=== PATIENT | female | born 1965 | race Caucasian/White ===

== ENCOUNTER → 2016-02-24 | Outpatient (CLI) | payer OTHER ==
[~2016-02-24] MED LIST: ALEV220C2 PO; CIPR500T89 PO; CLOB0.0548 TOP; CLOB0.058 TOP; FLAG500T PO; FOLI1TAB86 PO; GABA300C3 PO; IBUP200T2 PO; MORP15TA2 PO; MORP15TASA PO; MS C200T PO; MSIR30TA PO; NEUR300C PO; NUCY100T15 PO; NUCY100T8 PO; NUCY75TA8 PO; PRIL20TA2 PO; PRIL40CA PO; REGL10TA6 PO; SENO8.6T9 PO; TAZO0.052 TOP; TRAM1CAP15 PO; TRAM50TA2 PO; ULTR50TA PO; VITA100T92 PO; ZANT1TAB PO; ZENP1CAP PO; ZOFR8TAB PO; [UNRECOGNIZED DRUG - CODE] PO; [UNRECOGNIZED DRUG - CODE] PO; [UNRECOGNIZED DRUG - OTHER] TOP
--- NOTE | 2016-03-02 00:22 | ECWPNPC ---
PATIENT NAME: MEL BOURGEOIS : 1965 GENDER: FEMALE VISIT DATE: 02/24/2016 DISCHARGE DATE: 02/24/16 1525 VISIT LOCKED DATE TIME: PHYSICIAN: ZACK BOLAND RESOURCE: ZACK BOLAND REASON FOR APPOINTMENT 1. FOLLOWUP HISTORY OF PRESENT ILLNESS HISTORY OF PRESENT ILLNESS: HERE FOR F/U AND MANAGEMENT OF CHRONIC ABDOMINAL PAIN WITH HX OF CHRONIC PANCREATITIS.USING NUCYNTA 100MG BID AND DILAUDID 4MG SEVERE PAIN.THIS IS NOT CAUSING MUCH NAUSEA BUT NOT HELPING WITH PAIN MUCH MORPHINE.WILL BE HAVING ERCP AT [facility] IN [place] NEXT WEEK.RECENTLY HAD ERCP W STENTING WITH SEVERE AGGREVATION IN ABDOMINAL PAIN ON .RATING PAIN 8/10 VAS. PAIN THE PATIENT DESCRIBES THE PAIN... THE PATIENT DESCRIBES THE PAIN... FALL RISK SCREENING: SCREENING :NO FALLS IN THE PAST YEAR CURRENT MEDICATIONS TAKING PSEUDOEPHEDRINE HCL 30 MG TABLET 1 - 2 TABLETS ORALLY EVERY 6 HOURS NEEDED FOR CONGESTION TAKING ZENPEP [id number] UNIT CAPSULE DELAYED RELEASE PARTICLES ORALLY THREE TIMES DAILY TAKING VOLTAREN 1 % GEL APPLY 1 G TO EACH HAND TRANSDERMAL 4 TIMES A DAY TAKING ZOFRAN 8 MG ODT 1 TABLET ORALLY EVERY 8 HOURS NEEDED FOR NAUSEA, NOTES: UNSURE OF DOSEAGE TAKING ZOFRAN ODT 4 MG TABLET DISPERSIBLE 1 TABLET ON THE TONGUE AND ALLOW TO DISSOLVE ORALLY EVERY 8 HRS TAKING CLOBETASOL PROPIONATE 0.05 % CREAM THIN FILM TO PSORIATIC PLAQUES ON ARMS, LEGS AND SCALP EXTERNALLY TWICE A DAY TAKING ZANTAC 150 MG TABLET ONE HALF ORALLY DIRECTED TAKING CYMBALTA 60 MG CAPSULE DELAYED RELEASE PARTICLES 1 CAPSULE ORALLY ONCE A DAY TAKING NUCYNTA ER 100 MG TABLET EXTENDED RELEASE 12 HOUR DIRECTED ORALLY BID MDD2 TAKING DILAUDID 4 MG TABLET 1 TABLET NEEDED ORALLY EVERY 6 HRS MDD4 NOT-TAKING CUSTOM DO NOT USE TRAMADOL 50 MG TABLET 1-2 TABLETS ORALLY EVERY 6 HOURS NEEDED, MDD=8 NOT-TAKING OMEPRAZOLE 20MG 20MG TABLET 1 TABLET ORALLY ONCE A DAY NOT-TAKING TACLONEX SCALP 0.005-0.064 % SUSPENSION 1 DROP TO SCALP EXTERNALLY ONCE A DAY NOT-TAKING PATANOL 0.1 % SOLUTION 1 DROP INTO EACH EYE OPHTHALMIC TWICE A DAY, ABOUT 8 HOURS APART NOT-TAKING NORCO 5-325 MG TABLET 1 TABLET ORALLY THREE TIMES A DAY NEEDED FOR PAIN, MDD=3 NOT-TAKING TRAMADOL HCL 50 MG TABLET TAKE ONE TO TWO TABLETS BY MOUTH EVERY 6 HOURS NEEDED MAXIMUM DAILY DOSE = 8 TABLETS NOT-TAKING CELEXA 10 MG TABLET 1 TABLET ORALLY ONCE A DAY MEDICATION LIST REVIEWED AND RECONCILED WITH THE PATIENT PAST MEDICAL HISTORY OVERACTIVE BLADDER PSORIASIS TRANSIENT HEART MURMUR IRRITABLE BOWEL SYNDROME H/O ENDOMETRIOSIS DEPRESSION FAMILIAL ESSENTIAL TREMORS DOES NOT DRINK - HOSPITAL RECORD IS WRONG! ALLERGIES PENICILLIN V POTASSIUM: EXACERBATES PSORIASIS: ALLERGY CODEINE SULFATE: VOMITING: SIDE EFFECTS CYMBALTA: DIZZINESS, LISTED TO THE LEFT: SIDE EFFECTS SOCIAL HISTORY GENERAL: TOBACCO USE ARE YOU A:CURRENT SMOKER LEARNING BARRIERS / SPECIAL NEEDS ORIENTED TO PLAN OF CARE: PATIENT, PAIN MANAGEMENT PATIENT, ORIENTED TO PLAN OF CARE: PATIENT, PAIN MANAGEMENT PATIENT. NEW PATIENT PAIN DIARY TODAY'S VISITNOTES FROM 0-10, WHAT LEVEL IS YOUR PAIN TODAY?0 PAIN CLINIC PFS, CLERGY, PUBLIC HEALTH REFERRALS PFS REFERRAL NEEDED?NO CLERGY REFERRAL NEEDED?NO PUBLIC HEALTH REFERRAL NEEDED?NO WAS THE PROVIDER NOTIFIED OF ANY PERTINENT INFO?NO PFS REFERRAL NEEDED?NO CLERGY REFERRAL NEEDED?NO PUBLIC HEALTH REFERRAL NEEDED?NO WAS THE PROVIDER NOTIFIED OF ANY PERTINENT INFO?NO REVIEW OF SYSTEMS CONSTITUTIONAL: ANY CHANGE IN YOUR MEDICAL CONDITION? NO . CHILLS NO . FEVER NO . INFECTION: DO YOU HAVE NEW INFECTIONS? NO . DO YOU HAVE HISTORY OF MRSA? NO . MUSCULOSKELETAL: ANY NEW PATTERNS OF PAIN OR NUMBNESS? NO . GASTROENTEROLOGY: ANY NEW CHANGE IN BOWEL CONTROL? NO . GENITOURINARY: ANY NEW CHANGE IN BLADDER CONTROL? NO . IS THERE A CHANCE YOU COULD BE ? NO . HEMATOLOGY/LYMPH: DO YOU TAKE ANY BLOOD THINNERS? (FOR EXAMPLE- COUMADIN, PLAVIX, AGGRENOX, PLATEL, PRADAXA, OR XARELTO) NO . WHEN WAS YOUR LAST DOSE? DATE: TIME: . NEUROLOGY: HAVE YOU FALLEN IN THE PAST 6 MONTHS? NO . ANY NEW EXTREMITY NUMBNESS OR WEAKNESS? NO . CARDIOLOGY: DO YOU HAVE A PACEMAKER OR DEFIBRILLATOR? NO . RESPIRATORY: HAVE YOU BEEN SICK IN THE PAST WEEK? NO . FEVER NO . FLU LIKE SYMPTOMS? NO . COUGH NO . INTEGUMENTARY: DO YOU HAVE ANY RASHES OR OPEN SORES? NO . ALLERGIC/IMMUNO: ARE YOU ALLERGIC TO SHELLFISH OR IV DYE? NO . ANY NEW ALLERGIES? NO . PSYCHIATRIC: DO YOU HAVE THOUGHTS OF HURTING YOURSELF OR SOMEONE ELSE? NO . ARE YOU ABUSED, NEGLECTED, OR IN AN UNSAFE ENVIRONMENT? NO . ENDOCRINOLOGY: ARE YOU DIABETIC? NO . OTHER: DO YOU NEED ANY PRESCRIPTIONS? YES . IF YES, PLEASE LIST: NAV . ANY NEW PROBLEMS WITH YOUR MEDICATIONS? NO . WHEN DID YOU LAST EAT? ____ . WHEN DID YOU LAST DRINK? ____ . WHAT DID YOU LAST DRINK? ____ . NAME OF PERSON DRIVING YOU HOME? ____ . DO YOU HAVE ANY OTHER QUESTIONS OR CONCERNS NO . REVIEWED BY: PROVIDER: ZACK ROTHMAN . VITAL SIGNS WT 116 LBS, HT 63 IN, BMI 20.55 INDEX, BP 98/65 MM HG, HR 90 /MIN, RR 16 /MIN, TEMP 96.9 F, OXYGEN SAT % 96, NA INITIALS TL 1447, REVIEWED BY: MARGAUX. EXAMINATION GENERAL EXAMINATION: LUNGS:LUNG SOUNDS ARE CLEAR. HEART:HEART RATE REGULAR. ABDOMEN:TENDER WITH PALPATION UPPER QUADS.NON TENDER LOWER ABD. QUADS.. MUSCULOSKELETAL:*. ASSESSMENTS CHRONIC PANCREATITIS, UNSPECIFIED PANCREATITIS TYPE - K86.1 (PRIMARY) CHRONIC PRESCRIPTION OPIATE USE - Z79.891 TREATMENT CHRONIC PANCREATITIS, UNSPECIFIED PANCREATITIS TYPE REFILL NUCYNTA ER TABLET EXTENDED RELEASE 12 HOUR, 200 MG, DIRECTED, ORALLY, BID MDD2, 30 DAY(S), 60, REFILLS 0 CONTINUE CYMBALTA CAPSULE DELAYED RELEASE PARTICLES, 60 MG, 1 CAPSULE, ORALLY, ONCE A DAY REFILL DILAUDID TABLET, 4 MG, 1 TABLET NEEDED, ORALLY, EVERY 6 HRS MDD4, 30 DAY(S), 120, REFILLS 0 PROCEDURE CODES FA211 ESTABILISHED PATIENT [facility] CHARGE FOLLOW UP 4 WEEKS ELECTRONICALLY SIGNED BY STEPHAN JOHNSON ON 03/01/2016 AT 03:58 PM EST DISCLAIMER : THIS IS A VISIT SUMMARY EXTRACTED FROM THE [employer] CHART. IT IS NOT A COPY OF THE [employer] PROGRESS NOTE. MTDD
== END ==
LOC: M PAIN 14:20
PROVIDERS: ATTEND Nurse Practitioner Family
DX: K86.1 Other chronic pancreatitis (principal); Z79.891 Long term (current) use of opiate analgesic; Z79.899 Other long term (current) drug therapy; Z88.0 Allergy status to penicillin; Z88.6 Allergy status to analgesic agent; Z88.8 Allergy status to other drugs, medicaments and biological substances

== ENCOUNTER → 2016-03-23 | Outpatient (CLI) | payer OTHER ==
--- NOTE | 2016-04-02 01:28 | ECWPNPC ---
PATIENT NAME: MEL BOURGEOIS : 1965 GENDER: FEMALE VISIT DATE: 03/23/2016 DISCHARGE DATE: 03/23/16 1503 VISIT LOCKED DATE TIME: PHYSICIAN: ZACK BOLAND RESOURCE: ZACK BOLAND REASON FOR APPOINTMENT 1. FOLLOWUP HISTORY OF PRESENT ILLNESS HISTORY OF PRESENT ILLNESS: HERE FOR F/U AND MANAGEMENT OF CHRONIC ABDOMINAL PAIN WITH HX OF CHRONIC PANCREATITIS.USING NUCYNTA 100MG BID AND DILAUDID 4MG FOR SEVERE PAIN.THIS IS NOT CAUSING MUCH NAUSEA BUT NOT HELPING WITH PAIN MUCH MORPHINE. HAD ERCP AGAIN 03-01-16 W STENTING WITH SEVERE AGGREVATION IN ABDOMINAL PAIN . RATING PAIN VAS 5/10.HAS HAD SEVERE INCEASE IN ABDOMINAL PAIN SINCE THIS PROCEURE.WAS NOT ABLE TO GET OUT OF BED FOR 3 DAYS ONE WEEK AGO.EVERY TIME ERCP IS DONE SHE IS HAVING SEVERE INCREASE IN PAIN TO THE POINT THAT SHE IS TELLING ME SHE WONT HAVE IT DONE AGAIN ALTHOUGH SHE IS SCHEDULED FOR ANOTHER IN [place]. PAIN THE PATIENT DESCRIBES THE PAIN... THE PATIENT DESCRIBES THE PAIN... THE PATIENT DESCRIBES THE PAIN... FALL RISK SCREENING: SCREENING :NO FALLS IN THE PAST YEAR CURRENT MEDICATIONS TAKING PSEUDOEPHEDRINE HCL 30 MG TABLET 1 - 2 TABLETS ORALLY EVERY 6 HOURS NEEDED FOR CONGESTION TAKING ZENPEP [id number] UNIT CAPSULE DELAYED RELEASE PARTICLES ORALLY THREE TIMES DAILY TAKING VOLTAREN 1 % GEL APPLY 1 G TO EACH HAND TRANSDERMAL 4 TIMES A DAY TAKING ZOFRAN 8 MG ODT 1 TABLET ORALLY EVERY 8 HOURS NEEDED FOR NAUSEA, NOTES: UNSURE OF DOSEAGE TAKING ZOFRAN ODT 4 MG TABLET DISPERSIBLE 1 TABLET ON THE TONGUE AND ALLOW TO DISSOLVE ORALLY EVERY 8 HRS TAKING CLOBETASOL PROPIONATE 0.05 % CREAM THIN FILM TO PSORIATIC PLAQUES ON ARMS, LEGS AND SCALP EXTERNALLY TWICE A DAY TAKING ZANTAC 150 MG TABLET ONE HALF ORALLY DIRECTED TAKING NUCYNTA ER 200 MG TABLET EXTENDED RELEASE 12 HOUR DIRECTED ORALLY BID MDD2 TAKING CYMBALTA 60 MG CAPSULE DELAYED RELEASE PARTICLES 1 CAPSULE ORALLY ONCE A DAY TAKING DILAUDID 4 MG TABLET 1 TABLET NEEDED ORALLY EVERY 6 HRS MDD4 NOT-TAKING CUSTOM DO NOT USE TRAMADOL 50 MG TABLET 1-2 TABLETS ORALLY EVERY 6 HOURS NEEDED, MDD=8 NOT-TAKING OMEPRAZOLE 20MG 20MG TABLET 1 TABLET ORALLY ONCE A DAY NOT-TAKING TACLONEX SCALP 0.005-0.064 % SUSPENSION 1 DROP TO SCALP EXTERNALLY ONCE A DAY NOT-TAKING PATANOL 0.1 % SOLUTION 1 DROP INTO EACH EYE OPHTHALMIC TWICE A DAY, ABOUT 8 HOURS APART NOT-TAKING NORCO 5-325 MG TABLET 1 TABLET ORALLY THREE TIMES A DAY NEEDED FOR PAIN, MDD=3 NOT-TAKING TRAMADOL HCL 50 MG TABLET TAKE ONE TO TWO TABLETS BY MOUTH EVERY 6 HOURS NEEDED MAXIMUM DAILY DOSE = 8 TABLETS NOT-TAKING CELEXA 10 MG TABLET 1 TABLET ORALLY ONCE A DAY PAST MEDICAL HISTORY OVERACTIVE BLADDER PSORIASIS TRANSIENT HEART MURMUR IRRITABLE BOWEL SYNDROME H/O ENDOMETRIOSIS DEPRESSION FAMILIAL ESSENTIAL TREMORS DOES NOT DRINK - HOSPITAL RECORD IS WRONG! ALLERGIES PENICILLIN V POTASSIUM: EXACERBATES PSORIASIS: ALLERGY CODEINE SULFATE: VOMITING: SIDE EFFECTS CYMBALTA: DIZZINESS, LISTED TO THE LEFT: SIDE EFFECTS SOCIAL HISTORY GENERAL: TOBACCO USE ARE YOU A:NONSMOKER LEARNING BARRIERS / SPECIAL NEEDS ORIENTED TO PLAN OF CARE: PATIENT, PAIN MANAGEMENT PATIENT, ORIENTED TO PLAN OF CARE: PATIENT, PAIN MANAGEMENT PATIENT. NEW PATIENT PAIN DIARY TODAY'S VISITNOTES FROM 0-10, WHAT LEVEL IS YOUR PAIN TODAY?0 PAIN CLINIC PFS, CLERGY, PUBLIC HEALTH REFERRALS PFS REFERRAL NEEDED?NO CLERGY REFERRAL NEEDED?NO PUBLIC HEALTH REFERRAL NEEDED?NO WAS THE PROVIDER NOTIFIED OF ANY PERTINENT INFO?NO PFS REFERRAL NEEDED?NO CLERGY REFERRAL NEEDED?NO PUBLIC HEALTH REFERRAL NEEDED?NO WAS THE PROVIDER NOTIFIED OF ANY PERTINENT INFO?NO REVIEW OF SYSTEMS CONSTITUTIONAL: ANY CHANGE IN YOUR MEDICAL CONDITION? NO . CHILLS NO . FEVER NO . INFECTION: DO YOU HAVE NEW INFECTIONS? NO . DO YOU HAVE HISTORY OF MRSA? NO . MUSCULOSKELETAL: ANY NEW PATTERNS OF PAIN OR NUMBNESS? NO . GASTROENTEROLOGY: ANY NEW CHANGE IN BOWEL CONTROL? NO . GENITOURINARY: ANY NEW CHANGE IN BLADDER CONTROL? NO . IS THERE A CHANCE YOU COULD BE ? NO . HEMATOLOGY/LYMPH: DO YOU TAKE ANY BLOOD THINNERS? (FOR EXAMPLE- COUMADIN, PLAVIX, AGGRENOX, PLATEL, PRADAXA, OR XARELTO) NO . WHEN WAS YOUR LAST DOSE? DATE: TIME: . NEUROLOGY: HAVE YOU FALLEN IN THE PAST 6 MONTHS? NO . ANY NEW EXTREMITY NUMBNESS OR WEAKNESS? NO . CARDIOLOGY: DO YOU HAVE A PACEMAKER OR DEFIBRILLATOR? NO . RESPIRATORY: HAVE YOU BEEN SICK IN THE PAST WEEK? NO . FEVER NO . FLU LIKE SYMPTOMS? NO . COUGH NO . INTEGUMENTARY: DO YOU HAVE ANY RASHES OR OPEN SORES? NO . ALLERGIC/IMMUNO: ARE YOU ALLERGIC TO SHELLFISH OR IV DYE? NO . ANY NEW ALLERGIES? NO . PSYCHIATRIC: DO YOU HAVE THOUGHTS OF HURTING YOURSELF OR SOMEONE ELSE? NO . ARE YOU ABUSED, NEGLECTED, OR IN AN UNSAFE ENVIRONMENT? NO . ENDOCRINOLOGY: ARE YOU DIABETIC? NO . OTHER: DO YOU NEED ANY PRESCRIPTIONS? YES DILAUDID . IF YES, PLEASE LIST: ____ . ANY NEW PROBLEMS WITH YOUR MEDICATIONS? NO . WHEN DID YOU LAST EAT? ____ . WHEN DID YOU LAST DRINK? ____ . WHAT DID YOU LAST DRINK? ____ . NAME OF PERSON DRIVING YOU HOME? ____ . DO YOU HAVE ANY OTHER QUESTIONS OR CONCERNS NO . REVIEWED BY: PROVIDER: ZACK ROTHMAN . VITAL SIGNS WT 117.4 LBS, HT 63 IN, BMI 20.79 INDEX, BP 120/70 MM HG, HR 89 /MIN, RR 16 /MIN, TEMP 96.0 F, OXYGEN SAT % 98, NA INITIALS TL 1425. EXAMINATION GENERAL EXAMINATION: LUNGS:LUNG SOUNDS ARE CLEAR. HEART:HEART RATE REGULAR. ABDOMEN:TENDER WITH PALPATION UPPER QUADS.NON TENDER LOWER ABD. QUADS.. MUSCULOSKELETAL:*. ASSESSMENTS CHRONIC PANCREATITIS, UNSPECIFIED PANCREATITIS TYPE - K86.1 (PRIMARY) CHRONIC PRESCRIPTION OPIATE USE - Z79.891 TREATMENT CHRONIC PANCREATITIS, UNSPECIFIED PANCREATITIS TYPE REFILL NUCYNTA ER TABLET EXTENDED RELEASE 12 HOUR, 200 MG, DIRECTED, ORALLY, BID MDD2, 30 DAY(S), 60, REFILLS 0 CONTINUE CYMBALTA CAPSULE DELAYED RELEASE PARTICLES, 60 MG, 1 CAPSULE, ORALLY, ONCE A DAY REFILL DILAUDID TABLET, 4 MG, 1 TABLET NEEDED, ORALLY, LUCINA 6 HRS MDD6, 30 DAY(S), 180, REFILLS 0 PROCEDURE CODES FA211 ESTABILISHED PATIENT [facility] CHARGE DISPOSITION & COMMUNICATION FOLLOW UP 2 MONTHS ELECTRONICALLY SIGNED BY STEPHAN JOHNSON ON 03/29/2016 AT 05:01 PM EST DISCLAIMER : THIS IS A VISIT SUMMARY EXTRACTED FROM THE [employer] CHART. IT IS NOT A COPY OF THE [employer] PROGRESS NOTE. [facility]
== END ==
LOC: M PAIN 14:00
PROVIDERS: ATTEND Nurse Practitioner Family
DX: K86.1 Other chronic pancreatitis (principal); Z79.891 Long term (current) use of opiate analgesic; Z79.899 Other long term (current) drug therapy; F32.9 Major depressive disorder, single episode, unspecified; Z88.0 Allergy status to penicillin; Z88.5 Allergy status to narcotic agent; Z88.8 Allergy status to other drugs, medicaments and biological substances

== ENCOUNTER → 2016-05-31 | Outpatient (CLI) | payer OTHER ==
[~2016-05-31] MED LIST changes: +GABA-282 PO; -GABA300C3 PO
--- NOTE | 2016-06-10 23:51 | ECWPNPC ---
PATIENT NAME: MEL BOURGEOIS : 1965 GENDER: FEMALE VISIT DATE: 05/31/2016 DISCHARGE DATE: 05/31/16 1635 VISIT LOCKED DATE TIME: PHYSICIAN: ZACK BOLAND RESOURCE: ZACK BOLAND REASON FOR APPOINTMENT 1. PANCREAS HISTORY OF PRESENT ILLNESS HISTORY OF PRESENT ILLNESS: HERE FOR F/U AND MANAGEMENT OF CHRONIC ABDOMINAL PAIN WITH HX OF CHRONIC PANCREATITIS.USING NUCYNTA 200MG BID AND DILAUDID 4MG FOR SEVERE PAIN.THIS IS NOT CAUSING MUCH NAUSEA BUT NOT HELPING WITH PAIN MUCH MORPHINE. HAD ERCP AGAIN 03-01-16 W STENTING WITH SEVERE AGGREVATION IN ABDOMINAL PAIN . RATING PAIN VAS 6/10.HAS HAD SEVERE INCEASE IN ABDOMINAL PAIN SINCE THIS PROCEURE.WAS OFFERED [facility] PROCEDURE BUT PATIENT DOES NOT WANT TO PURSUE.EVERY TIME ERCP IS DONE SHE IS HAVING SEVERE INCREASE IN PAIN TO THE POINT THAT SHE IS TELLING ME SHE WONT HAVE IT DONE AGAIN. SHE WAS SEEN BY [facility]ACTICONER IN [place] AND REINSERTING STENTS WAS CANCELLED.AWAITING APPOINTMENT WITH THEM.PATIENT WAS OFFERED [facility]IP[facility] PROCEDURE BUT PATIENT ISNT INTERESTED AFTER READING POTENTIAL SIDE EFFECTS.ASKING TO DECREASE NUCYNTA DUE TO TOO MUCH SLEEPINESS.ALSO FEELS LIKE DILAUDID IS NOT EFFECTIVE MORPHINE. PAIN THE PATIENT DESCRIBES THE PAIN... THE PATIENT DESCRIBES THE PAIN... THE PATIENT DESCRIBES THE PAIN... THE PATIENT DESCRIBES THE PAIN... FALL RISK SCREENING: SCREENING :NO FALLS IN THE PAST YEAR CURRENT MEDICATIONS TAKING VOLTAREN 1 % GEL APPLY 1 G TO EACH HAND TRANSDERMAL 4 TIMES A DAY TAKING ZOFRAN 8 MG ODT 1 TABLET ORALLY EVERY 8 HOURS NEEDED FOR NAUSEA, NOTES: UNSURE OF DOSEAGE TAKING ZOFRAN ODT 4 MG TABLET DISPERSIBLE 1 TABLET ON THE TONGUE AND ALLOW TO DISSOLVE ORALLY EVERY 8 HRS TAKING CLOBETASOL PROPIONATE 0.05 % CREAM THIN FILM TO PSORIATIC PLAQUES ON ARMS, LEGS AND SCALP EXTERNALLY TWICE A DAY TAKING ZANTAC 150 MG TABLET ONE HALF ORALLY DIRECTED TAKING NUCYNTA ER 200 MG TABLET EXTENDED RELEASE 12 HOUR DIRECTED ORALLY BID MDD2 TAKING CYMBALTA 60 MG CAPSULE DELAYED RELEASE PARTICLES 1 CAPSULE ORALLY ONCE A DAY TAKING DILAUDID 4 MG TABLET 1 TABLET NEEDED ORALLY LUCINA 6 HRS MDD6 TAKING CLARINEX-D 24 HOUR 5-240 MG TABLET EXTENDED RELEASE 24 HOUR ORALLY DAILY NOT-TAKING PSEUDOEPHEDRINE HCL 30 MG TABLET 1 - 2 TABLETS ORALLY EVERY 6 HOURS NEEDED FOR CONGESTION NOT-TAKING ZENPEP [id number] UNIT CAPSULE DELAYED RELEASE PARTICLES ORALLY THREE TIMES DAILY NOT-TAKING CUSTOM DO NOT USE TRAMADOL 50 MG TABLET 1-2 TABLETS ORALLY EVERY 6 HOURS NEEDED, MDD=8 NOT-TAKING OMEPRAZOLE 20MG 20MG TABLET 1 TABLET ORALLY ONCE A DAY NOT-TAKING TACLONEX SCALP 0.005-0.064 % SUSPENSION 1 DROP TO SCALP EXTERNALLY ONCE A DAY NOT-TAKING PATANOL 0.1 % SOLUTION 1 DROP INTO EACH EYE OPHTHALMIC TWICE A DAY, ABOUT 8 HOURS APART NOT-TAKING NORCO 5-325 MG TABLET 1 TABLET ORALLY THREE TIMES A DAY NEEDED FOR PAIN, MDD=3 NOT-TAKING TRAMADOL HCL 50 MG TABLET TAKE ONE TO TWO TABLETS BY MOUTH EVERY 6 HOURS NEEDED MAXIMUM DAILY DOSE = 8 TABLETS NOT-TAKING CELEXA 10 MG TABLET 1 TABLET ORALLY ONCE A DAY MEDICATION LIST REVIEWED AND RECONCILED WITH THE PATIENT PAST MEDICAL HISTORY OVERACTIVE BLADDER PSORIASIS TRANSIENT HEART MURMUR IRRITABLE BOWEL SYNDROME H/O ENDOMETRIOSIS DEPRESSION FAMILIAL ESSENTIAL TREMORS DOES NOT DRINK - HOSPITAL RECORD IS WRONG! ALLERGIES PENICILLIN V POTASSIUM: EXACERBATES PSORIASIS: ALLERGY CODEINE SULFATE: VOMITING: SIDE EFFECTS CYMBALTA: DIZZINESS, LISTED TO THE LEFT: SIDE EFFECTS SOCIAL HISTORY GENERAL: PAIN CLINIC PFS, CLERGY, PUBLIC HEALTH REFERRALS CLERGY REFERRAL NEEDED?NO WAS THE PROVIDER NOTIFIED OF ANY PERTINENT INFO?NO PFS REFERRAL NEEDED?NO PUBLIC HEALTH REFERRAL NEEDED?NO PATIENT: ____. REVIEW OF SYSTEMS CONSTITUTIONAL: ANY CHANGE IN YOUR MEDICAL CONDITION? NO . CHILLS NO . FEVER NO . INFECTION: DO YOU HAVE NEW INFECTIONS? NO . DO YOU HAVE HISTORY OF MRSA? NO . MUSCULOSKELETAL: ANY NEW PATTERNS OF PAIN OR NUMBNESS? NO . GASTROENTEROLOGY: ANY NEW CHANGE IN BOWEL CONTROL? NO . GENITOURINARY: ANY NEW CHANGE IN BLADDER CONTROL? NO . IS THERE A CHANCE YOU COULD BE ? NO . HEMATOLOGY/LYMPH: DO YOU TAKE ANY BLOOD THINNERS? (FOR EXAMPLE- COUMADIN, PLAVIX, AGGRENOX, PLATEL, PRADAXA, OR XARELTO) NO . WHEN WAS YOUR LAST DOSE? DATE: TIME: . NEUROLOGY: HAVE YOU FALLEN IN THE PAST 6 MONTHS? NO . ANY NEW EXTREMITY NUMBNESS OR WEAKNESS? NO . CARDIOLOGY: DO YOU HAVE A PACEMAKER OR DEFIBRILLATOR? NO . RESPIRATORY: HAVE YOU BEEN SICK IN THE PAST WEEK? NO . FEVER NO . FLU LIKE SYMPTOMS? NO . COUGH NO . INTEGUMENTARY: DO YOU HAVE ANY RASHES OR OPEN SORES? NO . ALLERGIC/IMMUNO: ARE YOU ALLERGIC TO SHELLFISH OR IV DYE? NO . ANY NEW ALLERGIES? NO . PSYCHIATRIC: DO YOU HAVE THOUGHTS OF HURTING YOURSELF OR SOMEONE ELSE? NO . ARE YOU ABUSED, NEGLECTED, OR IN AN UNSAFE ENVIRONMENT? NO . ENDOCRINOLOGY: ARE YOU DIABETIC? NO . OTHER: DO YOU NEED ANY PRESCRIPTIONS? NO . IF YES, PLEASE LIST: ____ . ANY NEW PROBLEMS WITH YOUR MEDICATIONS? NO . WHEN DID YOU LAST EAT? ____ . WHEN DID YOU LAST DRINK? ____ . WHAT DID YOU LAST DRINK? ____ . NAME OF PERSON DRIVING YOU HOME? ____ . DO YOU HAVE ANY OTHER QUESTIONS OR CONCERNS NO . REVIEWED BY: PROVIDER: ZACK ROTHMAN . VITAL SIGNS WT 118.8 LBS, HT 63 IN, BMI 21.04 INDEX, BP 106/72 MM HG, HR 89 /MIN, RR 16 /MIN, TEMP 98.3 F, OXYGEN SAT % 96%, NA INITIALS LC, REVIEWED BY: CS. EXAMINATION GENERAL EXAMINATION: LUNGS:LUNG SOUNDS ARE CLEAR. HEART:HEART RATE REGULAR. ABDOMEN:TENDER WITH PALPATION UPPER QUADS.NON TENDER LOWER ABD. QUADS.. MUSCULOSKELETAL:*. ASSESSMENTS CHRONIC PANCREATITIS, UNSPECIFIED PANCREATITIS TYPE - K86.1 (PRIMARY) CHRONIC PRESCRIPTION OPIATE USE - Z79.891 TREATMENT CHRONIC PANCREATITIS, UNSPECIFIED PANCREATITIS TYPE DECREASE NUCYNTA ER TABLET EXTENDED RELEASE 12 HOUR, 200 MG, DIRECTED, ORALLY, DAILY AT HS, 30 DAY(S), 30, REFILLS 0 STOP DILAUDID TABLET, 4 MG, 1 TABLET NEEDED, ORALLY, LUCINA 6 HRS MDD6 START MORPHINE SULFATE TABLET, 15 MG, 1, ORALLY, EVERY 6H PRN MDD4, 30 DAY(S), 120, REFILLS 0 START NUCYNTA ER TABLET EXTENDED RELEASE 12 HOUR, 100 MG, 1 TABLET, ORALLY, DAILY IN AM MDD1, 30 DAY(S), 30, REFILLS 0 PROCEDURE CODES FA211 ESTABILISHED PATIENT [facility] CHARGE DISPOSITION & COMMUNICATION FOLLOW UP 6 WEEKS ELECTRONICALLY SIGNED BY STEPHAN JHONSON ON 06/10/2016 AT 04:28 PM EDT DISCLAIMER : THIS IS A VISIT SUMMARY EXTRACTED FROM THE [employer] [facility] [facility] CHART. IT IS NOT A COPY OF THE [employer] [facility] PROGRESS NOTE. K[facility]
== END | disposition home or self-care (01) ==
LOC: M PAIN 15:00
PROVIDERS: ATTEND Nurse Practitioner Family
DX: G89.29 Other chronic pain (principal); K86.1 Other chronic pancreatitis; N32.81 Overactive bladder; L40.9 Psoriasis, unspecified; K58.9 Irritable bowel syndrome, unspecified; N80.9 Endometriosis, unspecified; F33.9 Major depressive disorder, recurrent, unspecified; G25.0 Essential tremor; Z79.899 Other long term (current) drug therapy; Z88.0 Allergy status to penicillin; Z88.2 Allergy status to sulfonamides; Z88.5 Allergy status to narcotic agent; Z88.8 Allergy status to other drugs, medicaments and biological substances

== ENCOUNTER → 2016-07-14 | Outpatient (CLI) | payer BC, OTHER ==
--- NOTE | 2016-07-14 23:39 | ECWPNPC ---
PATIENT NAME: MEL BOURGEOIS : 1965 GENDER: FEMALE VISIT DATE: 07/14/2016 DISCHARGE DATE: 07/14/16 1224 VISIT LOCKED DATE TIME: PHYSICIAN: ZACK BOLAND RESOURCE: ZACK BOLAND REASON FOR APPOINTMENT 1. 6 WK F/U PANCREAS HISTORY OF PRESENT ILLNESS HISTORY OF PRESENT ILLNESS: HERE FOR F/U AND MANAGEMENT OF CHRONIC ABDOMINAL PAIN WITH HX OF CHRONIC PANCREATITIS.USING NUCYNTA 100MG DAILY AND DILAUDID 4MG FOR SEVERE PAIN.FINDS MEDICATION EFFECTIVE WITHOUT SIDE EFFECTS. RATING PAIN VAS 4/10.HAVING A GOOD DAY AND MORE FREQUENT GOOD DAYS LATELY.WILL BE HAVING STENT REPLACEMENT IN AUGUST. PAIN THE PATIENT DESCRIBES THE PAIN... THE PATIENT DESCRIBES THE PAIN... THE PATIENT DESCRIBES THE PAIN... THE PATIENT DESCRIBES THE PAIN... THE PATIENT DESCRIBES THE PAIN... FALL RISK SCREENING: SCREENING :NO FALLS IN THE PAST YEAR CURRENT MEDICATIONS TAKING VOLTAREN 1 % GEL APPLY 1 G TO EACH HAND TRANSDERMAL 4 TIMES A DAY TAKING ZOFRAN ODT 4 MG TABLET DISPERSIBLE 1 TABLET ON THE TONGUE AND ALLOW TO DISSOLVE ORALLY EVERY 8 HRS TAKING CLOBETASOL PROPIONATE 0.05 % CREAM THIN FILM TO PSORIATIC PLAQUES ON ARMS, LEGS AND SCALP EXTERNALLY TWICE A DAY TAKING ZANTAC 150 MG TABLET ONE HALF ORALLY DIRECTED TAKING CYMBALTA 60 MG CAPSULE DELAYED RELEASE PARTICLES 1 CAPSULE ORALLY ONCE A DAY TAKING CLARINEX-D 24 HOUR 5-240 MG TABLET EXTENDED RELEASE 24 HOUR ORALLY DAILY TAKING NUCYNTA ER 200 MG TABLET EXTENDED RELEASE 12 HOUR DIRECTED ORALLY DAILY AT HS TAKING DILAUDID 4 MG TABLET 1-2 TABLET NEEDED ORALLY EVERY 6 HRS PRN MDD 6 TAKING NUCYNTA ER 100 MG TABLET EXTENDED RELEASE 12 HOUR 1 TABLET ORALLY DAILY IN AM MDD1 TAKING ZOFRAN 8 MG ODT 1 TABLET ORALLY EVERY 8 HOURS NEEDED FOR NAUSEA, NOTES: UNSURE OF DOSEAGE NOT-TAKING MORPHINE SULFATE 15 MG TABLET 1 ORALLY EVERY 6H PRN MDD4 NOT-TAKING PSEUDOEPHEDRINE HCL 30 MG TABLET 1 - 2 TABLETS ORALLY EVERY 6 HOURS NEEDED FOR CONGESTION NOT-TAKING ZENPEP [id number] UNIT CAPSULE DELAYED RELEASE PARTICLES ORALLY THREE TIMES DAILY NOT-TAKING CUSTOM DO NOT USE TRAMADOL 50 MG TABLET 1-2 TABLETS ORALLY EVERY 6 HOURS NEEDED, MDD=8 NOT-TAKING OMEPRAZOLE 20MG 20MG TABLET 1 TABLET ORALLY ONCE A DAY NOT-TAKING TACLONEX SCALP 0.005-0.064 % SUSPENSION 1 DROP TO SCALP EXTERNALLY ONCE A DAY NOT-TAKING PATANOL 0.1 % SOLUTION 1 DROP INTO EACH EYE OPHTHALMIC TWICE A DAY, ABOUT 8 HOURS APART NOT-TAKING NORCO 5-325 MG TABLET 1 TABLET ORALLY THREE TIMES A DAY NEEDED FOR PAIN, MDD=3 NOT-TAKING TRAMADOL HCL 50 MG TABLET TAKE ONE TO TWO TABLETS BY MOUTH EVERY 6 HOURS NEEDED MAXIMUM DAILY DOSE = 8 TABLETS NOT-TAKING CELEXA 10 MG TABLET 1 TABLET ORALLY ONCE A DAY MEDICATION LIST REVIEWED AND RECONCILED WITH THE PATIENT PAST MEDICAL HISTORY OVERACTIVE BLADDER PSORIASIS TRANSIENT HEART MURMUR IRRITABLE BOWEL SYNDROME H/O ENDOMETRIOSIS DEPRESSION FAMILIAL ESSENTIAL TREMORS DOES NOT DRINK - HOSPITAL RECORD IS WRONG! PANCREATIC TUMOR ALLERGIES PENICILLIN V POTASSIUM: EXACERBATES PSORIASIS: ALLERGY CODEINE SULFATE: VOMITING: SIDE EFFECTS CYMBALTA: DIZZINESS, LISTED TO THE LEFT: SIDE EFFECTS SURGICAL HISTORY LAPAROSCOPIC CHOLECYSTECTOMY 08/07/2012 TOTAL VAGINAL HYTERECTOMY, SPARED OVARIES 2000 ERCP WITH 2 STENTS 12/29/2015 ERCP WITH PANCREATIC STENT REPLACEMENT Q 2 MONTHS HOSPITALIZATION/MAJOR DIAGNOSTIC PROCEDURE LAPAROSCOPIES, FINALLY HYSTERECTOMY LAPAROSCOPIC CHOLECYSTECTOMY (SAME DAY) July, PANCREATITIS 2013 STENT TO PANCREAS 2016 REVIEW OF SYSTEMS CONSTITUTIONAL: ANY CHANGE IN YOUR MEDICAL CONDITION? NO . CHILLS NO . FEVER NO . INFECTION: DO YOU HAVE NEW INFECTIONS? NO . DO YOU HAVE HISTORY OF MRSA? NO . MUSCULOSKELETAL: ANY NEW PATTERNS OF PAIN OR NUMBNESS? NO . GASTROENTEROLOGY: ANY NEW CHANGE IN BOWEL CONTROL? NO . GENITOURINARY: ANY NEW CHANGE IN BLADDER CONTROL? NO . IS THERE A CHANCE YOU COULD BE ? NO . HEMATOLOGY/LYMPH: DO YOU TAKE ANY BLOOD THINNERS? (FOR EXAMPLE- COUMADIN, PLAVIX, AGGRENOX, PLATEL, PRADAXA, OR XARELTO) NO . WHEN WAS YOUR LAST DOSE? DATE: TIME: . NEUROLOGY: HAVE YOU FALLEN IN THE PAST 6 MONTHS? NO . ANY NEW EXTREMITY NUMBNESS OR WEAKNESS? NO . CARDIOLOGY: DO YOU HAVE A PACEMAKER OR DEFIBRILLATOR? NO . RESPIRATORY: HAVE YOU BEEN SICK IN THE PAST WEEK? NO . FEVER NO . FLU LIKE SYMPTOMS? NO . COUGH NO . INTEGUMENTARY: DO YOU HAVE ANY RASHES OR OPEN SORES? YES, PSORIASIS . ALLERGIC/IMMUNO: ARE YOU ALLERGIC TO SHELLFISH OR IV DYE? NO . ANY NEW ALLERGIES? NO . PSYCHIATRIC: DO YOU HAVE THOUGHTS OF HURTING YOURSELF OR SOMEONE ELSE? NO . ARE YOU ABUSED, NEGLECTED, OR IN AN UNSAFE ENVIRONMENT? NO . ENDOCRINOLOGY: ARE YOU DIABETIC? NO . OTHER: DO YOU NEED ANY PRESCRIPTIONS? YES, NUCYNTA ER 200 . IF YES, PLEASE LIST: ____ . ANY NEW PROBLEMS WITH YOUR MEDICATIONS? NO . WHEN DID YOU LAST EAT? ____ . WHEN DID YOU LAST DRINK? ____ . WHAT DID YOU LAST DRINK? ____ . NAME OF PERSON DRIVING YOU HOME? ____ . DO YOU HAVE ANY OTHER QUESTIONS OR CONCERNS NO . REVIEWED BY: PROVIDER: ZACK ROTHMAN . VITAL SIGNS WT 122.6 LBS, HT 63 IN, BMI 21.72 INDEX, BP 112/66 MM HG, HR 95 /MIN, RR 16 /MIN, TEMP 97.8 F, OXYGEN SAT % 96%, SAFE IN ENV? (Y/N) Y, NA INITIALS TL 1120, REVIEWED BY: EMPT WAS WEIGHED ON PMC SCALE- TL. EXAMINATION GENERAL EXAMINATION: LUNGS:LUNG SOUNDS ARE CLEAR. HEART:HEART RATE REGULAR. ABDOMEN:TENDER WITH PALPATION UPPER QUADS.NON TENDER LOWER ABD. QUADS.. MUSCULOSKELETAL:*. ASSESSMENTS CHRONIC PANCREATITIS, UNSPECIFIED PANCREATITIS TYPE - K86.1 (PRIMARY) CHRONIC PRESCRIPTION OPIATE USE - Z79.891 TREATMENT CHRONIC PANCREATITIS, UNSPECIFIED PANCREATITIS TYPE REFILL CYMBALTA CAPSULE DELAYED RELEASE PARTICLES, 60 MG, 1 CAPSULE, ORALLY, ONCE A DAY, 30 DAY(S), 30 CAPSULE, REFILLS 2 REFILL NUCYNTA ER TABLET EXTENDED RELEASE 12 HOUR, 100 MG, 1 TABLET, ORALLY, DAILY IN AM MDD1, 30 DAY(S), 30, REFILLS 0 CONTINUE ZOFRAN ODT, 8 MG, 1 TABLET, ORALLY, EVERY 8 HOURS NEEDED FOR NAUSEA, NOTES: UNSURE OF DOSEAGE CONTINUE DILAUDID TABLET, 4 MG, 1-2 TABLET NEEDED, ORALLY, EVERY 6 HRS PRN MDD 6 NOTES: ISTOP REGISTRY REVIEWED AND DEMNOSTRATES COMPLLIANCE. BRINGS IN MEDICATIONS WHICH IS APPROPRIATE FOR WHAT WAS DISPENSED. RECENT URINE TOXICOLOGY REVIEWED. NO UNAUTHORIZED MEDICATIONS. NO ILLICIT SUBSTANCES AND PRESCRIBED MEDICATIONS WERE PRESENT. , RISKS AND BENEFITS OF NARCOTIC/OPIOD MEDICATIONS WERE REVIEWED WITH PATIENT - THIS INCLUDES BUT IS NOT LIMITED TO RISK OF DEPENDANCE/DEVELOPMENT OF ADDICTION, MOOD DISTURBANCE AND DEPRESSION, OSTEOPOROSIS, HORMONAL AND LABIDAL CHANGES, RESPIRATORY DEPRESSION AND . PATIENT IS ADVISED NOT TO DRIVE WHILE ON THESE MEDICATIONS.URINE TOX TODAY. PROCEDURE CODES FA211 ESTABILISHED PATIENT [facility] CHARGE DISPOSITION & COMMUNICATION FOLLOW UP 3 MONTHS ELECTRONICALLY SIGNED BY STEPHAN JOHNSON ON 07/14/2016 AT 02:41 PM EDT DISCLAIMER : THIS IS A VISIT SUMMARY EXTRACTED FROM THE [employer] CHART. IT IS NOT A COPY OF THE [employer] PROGRESS NOTE. MTDD
== END ==
LOC: M PAIN 11:00
PROVIDERS: ATTEND Nurse Practitioner Family
DX: K86.1 Other chronic pancreatitis (principal); Z79.891 Long term (current) use of opiate analgesic; Z79.899 Other long term (current) drug therapy; Z88.0 Allergy status to penicillin; Z88.5 Allergy status to narcotic agent; Z88.8 Allergy status to other drugs, medicaments and biological substances

== ENCOUNTER → 2016-10-18 | Outpatient (CLI) | payer BC, OTHER ==
[~2016-10-18] MED LIST changes: +NUCY100T11 PO; -NUCY100T15 PO; +NUCY100T3 PO; -NUCY100T8 PO; +NUCY75TA3 PO; -NUCY75TA8 PO
--- NOTE | 2016-10-20 01:53 | ECWPNPC ---
PATIENT NAME: MEL BOURGEOIS : 1965 GENDER: FEMALE VISIT DATE: 10/18/2016 DISCHARGE DATE: 10/18/16 1544 VISIT LOCKED DATE TIME: PHYSICIAN: ZACK BOLAND RESOURCE: ZACK BOLAND HISTORY OF PRESENT ILLNESS HISTORY OF PRESENT ILLNESS: HERE FOR F/U AND MANAGEMENT OF CHRONIC ABDOMINAL PAIN WITH HX OF CHRONIC PANCREATITIS.USING NUCYNTA 100MG DAILY AND DILAUDID 4MG FOR SEVERE PAIN.FINDS MEDICATION NOT EFFECTIVE SINCE STENT PLACEMENT IN AUGUST. RATING PAIN VAS 7/10.HAVING A BAD DAY AND MORE FREQUENT BAD DAYS LATELY.DISCUSSED MEDICAL MARIJUANA AND MEDICINE TRETMENT OPTIONS.CURRENTLY USING DILAUDID 4MG 1-2 TAB W MAX 6 PER DAY.DISCUSSED POTENTIAL SIDE EFFECTS OF HIGH DOSE NARCOTIC PAIN MEDICATION. PAIN THE PATIENT DESCRIBES THE PAIN... THE PATIENT DESCRIBES THE PAIN... THE PATIENT DESCRIBES THE PAIN... THE PATIENT DESCRIBES THE PAIN... THE PATIENT DESCRIBES THE PAIN... THE PATIENT DESCRIBES THE PAIN... FALL RISK SCREENING: SCREENING :NO FALLS IN THE PAST YEAR CURRENT MEDICATIONS TAKING VOLTAREN 1 % GEL APPLY 1 G TO EACH HAND TRANSDERMAL 4 TIMES A DAY TAKING ZOFRAN ODT 4 MG TABLET DISPERSIBLE 1 TABLET ON THE TONGUE AND ALLOW TO DISSOLVE ORALLY EVERY 8 HRS TAKING CLOBETASOL PROPIONATE 0.05 % CREAM THIN FILM TO PSORIATIC PLAQUES ON ARMS, LEGS AND SCALP EXTERNALLY TWICE A DAY TAKING ZANTAC 150 MG TABLET ONE HALF ORALLY DIRECTED TAKING CLARINEX-D 24 HOUR 5-240 MG TABLET EXTENDED RELEASE 24 HOUR ORALLY DAILY TAKING ZOFRAN 8 MG ODT 1 TABLET ORALLY EVERY 8 HOURS NEEDED FOR NAUSEA TAKING DILAUDID 4 MG TABLET 1-2 TABLET NEEDED ORALLY EVERY 6 HRS PRN MDD 6 TAKING CYMBALTA 60 MG CAPSULE DELAYED RELEASE PARTICLES 1 CAPSULE ORALLY ONCE A DAY TAKING NUCYNTA ER 100 MG TABLET EXTENDED RELEASE 12 HOUR 1 TABLET ORALLY DAILY IN AM MDD1 NOT-TAKING NUCYNTA ER 200 MG TABLET EXTENDED RELEASE 12 HOUR DIRECTED ORALLY DAILY AT HS NOT-TAKING MORPHINE SULFATE 15 MG TABLET 1 ORALLY EVERY 6H PRN MDD4 NOT-TAKING PSEUDOEPHEDRINE HCL 30 MG TABLET 1 - 2 TABLETS ORALLY EVERY 6 HOURS NEEDED FOR CONGESTION NOT-TAKING ZENPEP [id number] UNIT CAPSULE DELAYED RELEASE PARTICLES ORALLY THREE TIMES DAILY NOT-TAKING CUSTOM DO NOT USE TRAMADOL 50 MG TABLET 1-2 TABLETS ORALLY EVERY 6 HOURS NEEDED, MDD=8 NOT-TAKING OMEPRAZOLE 20MG 20MG TABLET 1 TABLET ORALLY ONCE A DAY NOT-TAKING TACLONEX SCALP 0.005-0.064 % SUSPENSION 1 DROP TO SCALP EXTERNALLY ONCE A DAY NOT-TAKING PATANOL 0.1 % SOLUTION 1 DROP INTO EACH EYE OPHTHALMIC TWICE A DAY, ABOUT 8 HOURS APART NOT-TAKING NORCO 5-325 MG TABLET 1 TABLET ORALLY THREE TIMES A DAY NEEDED FOR PAIN, MDD=3 NOT-TAKING TRAMADOL HCL 50 MG TABLET TAKE ONE TO TWO TABLETS BY MOUTH EVERY 6 HOURS NEEDED MAXIMUM DAILY DOSE = 8 TABLETS NOT-TAKING CELEXA 10 MG TABLET 1 TABLET ORALLY ONCE A DAY MEDICATION LIST REVIEWED AND RECONCILED WITH THE PATIENT PAST MEDICAL HISTORY OVERACTIVE BLADDER PSORIASIS TRANSIENT HEART MURMUR IRRITABLE BOWEL SYNDROME H/O ENDOMETRIOSIS DEPRESSION FAMILIAL ESSENTIAL TREMORS DOES NOT DRINK - HOSPITAL RECORD IS WRONG! PANCREATIC TUMOR ALLERGIES PENICILLIN V POTASSIUM: EXACERBATES PSORIASIS: ALLERGY CODEINE SULFATE: VOMITING: SIDE EFFECTS CYMBALTA: DIZZINESS, LISTED TO THE LEFT: SIDE EFFECTS SOCIAL HISTORY GENERAL: TOBACCO USE ARE YOU A:CURRENT SMOKER PATIENT COUNSELED ON THE DANGERS OF TOBACCO USE AND URGED TO QUIT:10/18/2016 ARE YOU INTERESTED IN QUITTING?NOT READY TO QUIT COUNSELED THE PATIENT ON SMOKING EFFECTS, EDUCATION [id number]/05/2017 UATSDIN [id number] CHRISTIAN LANGUAGE LANGUAGES SPOKEN:PASHTO LEARNING BARRIERS / SPECIAL NEEDS CHANGE FROM LAST VISIT?NO BARRIERS TO LEARNING?NO HEARING IMPAIRED?NO VISION IMPAIRED?YES GLASSES FOR READING COGNITIVELY IMPAIRED?NO READINESS TO LEARN?YES LEARNING PREFERENCES?NO LEARNING CAPABILITIES PRESENT?YES EMOTIONAL BARRIERS?NO SPECIAL DEVICES?NO SCIENCE TECHNICIANS NEEDED?NO PAIN CLINIC PFS, CLERGY, PUBLIC HEALTH REFERRALS PFS REFERRAL NEEDED?NO CLERGY REFERRAL NEEDED?NO PUBLIC HEALTH REFERRAL NEEDED?NO WAS THE PROVIDER NOTIFIED OF ANY PERTINENT INFO?NO HAS THE PATIENT BEEN EDUCATED REGARDING HIS/HER PLAN OF CARE?YES HAS THE PATIENT BEEN EDUCATED REGARDING PAIN, THE RISK FOR PAIN, THE IMPORTANCE OF EFFECTIVE PAIN MANAGEMENT, AND THE PAIN ASSESSMENT PROCESS?YES PATIENT: ____. ADVANCE DIRECTIVES HEALTH CARE PROXY?YES NAME OF HCP TABATHA HAILE CONTACT # FOR HCP # [phone] DO YOU HAVE A COPY WITH YOU?NO DO YOU HAVE A DNR?NO WOULD YOU LIKE MORE INFORMATION?NO LIVING WILL?NO WOULD YOU LIKE MORE INFORMATION?NO POWER OF ELECTRONICS LEAD?NO WOULD YOU LIKE MORE INFORMATION?NO REVIEW OF SYSTEMS REVIEWED BY: PROVIDER: ZACK ROTHMAN . CONSTITUTIONAL: ANY CHANGE IN YOUR MEDICAL CONDITION? NO . CHILLS NO . FEVER NO . INFECTION: DO YOU HAVE NEW INFECTIONS? NO . DO YOU HAVE HISTORY OF MRSA? NO . MUSCULOSKELETAL: ANY NEW PATTERNS OF PAIN OR NUMBNESS? NO . GASTROENTEROLOGY: ANY NEW CHANGE IN BOWEL CONTROL? NO . GENITOURINARY: ANY NEW CHANGE IN BLADDER CONTROL? NO . IS THERE A CHANCE YOU COULD BE ? NO . HEMATOLOGY/LYMPH: DO YOU TAKE ANY BLOOD THINNERS? (FOR EXAMPLE- COUMADIN, PLAVIX, AGGRENOX, PLATEL, PRADAXA, OR XARELTO) NO . WHEN WAS YOUR LAST DOSE? DATE: TIME: . NEUROLOGY: HAVE YOU FALLEN IN THE PAST 6 MONTHS? NO . ANY NEW EXTREMITY NUMBNESS OR WEAKNESS? NO . CARDIOLOGY: DO YOU HAVE A PACEMAKER OR DEFIBRILLATOR? NO . RESPIRATORY: HAVE YOU BEEN SICK IN THE PAST WEEK? NO . FEVER NO . FLU LIKE SYMPTOMS? NO . COUGH NO . INTEGUMENTARY: DO YOU HAVE ANY RASHES OR OPEN SORES? NO . ALLERGIC/IMMUNO: ARE YOU ALLERGIC TO SHELLFISH OR IV DYE? NO . ANY NEW ALLERGIES? NO . PSYCHIATRIC: DO YOU HAVE THOUGHTS OF HURTING YOURSELF OR SOMEONE ELSE? NO . ARE YOU ABUSED, NEGLECTED, OR IN AN UNSAFE ENVIRONMENT? NO . ENDOCRINOLOGY: ARE YOU DIABETIC? NO . OTHER: DO YOU NEED ANY PRESCRIPTIONS? YES . IF YES, PLEASE LIST: DILAUDID . ANY NEW PROBLEMS WITH YOUR MEDICATIONS? NO . WHEN DID YOU LAST EAT? ____ . WHEN DID YOU LAST DRINK? ____ . WHAT DID YOU LAST DRINK? ____ . NAME OF PERSON DRIVING YOU HOME? ____ . DO YOU HAVE ANY OTHER QUESTIONS OR CONCERNS NO . VITAL SIGNS WT 120 LBS, HT 63 IN, BMI 21.25 INDEX, BP 127/70 MM HG, HR 85 /MIN, RR 16 /MIN, TEMP 96.5 F, OXYGEN SAT % 97%, NA INITIALS SC 14:33, REVIEWED BY: MARGAUX. EXAMINATION GENERAL EXAMINATION: LUNGS:LUNG SOUNDS ARE CLEAR. HEART:HEART RATE REGULAR. ABDOMEN:TENDER WITH PALPATION UPPER QUADS.NON TENDER LOWER ABD. QUADS.. MUSCULOSKELETAL:*. ASSESSMENTS CHRONIC PANCREATITIS, UNSPECIFIED PANCREATITIS TYPE - K86.1 (PRIMARY) TREATMENT CHRONIC PANCREATITIS, UNSPECIFIED PANCREATITIS TYPE REFILL DILAUDID TABLET, 4 MG, 1-2 TABLET NEEDED, ORALLY, EVERY 6 HRS PRN MDD 6, 30 DAY(S), 180, REFILLS 0 CONTINUE CYMBALTA CAPSULE DELAYED RELEASE PARTICLES, 60 MG, 1 CAPSULE, ORALLY, ONCE A DAY INCREASE NUCYNTA ER TABLET EXTENDED RELEASE 12 HOUR, 100 MG, 1 TABLET, ORALLY, BID-MDD2, 30 DAY(S), 60, REFILLS 0 NOTES: ISTOP REGISTRY REVIEWED AND DEMNOSTRATES COMPLLIANCE. BRINGS IN MEDICATIONS WHICH IS APPROPRIATE FOR WHAT WAS DISPENSED. RECENT URINE TOXICOLOGY REVIEWED. NO UNAUTHORIZED MEDICATIONS. NO ILLICIT SUBSTANCES AND PRESCRIBED MEDICATIONS WERE PRESENT. , RISKS AND BENEFITS OF NARCOTIC/OPIOD MEDICATIONS WERE REVIEWED WITH PATIENT - THIS INCLUDES BUT IS NOT LIMITED TO RISK OF DEPENDANCE/DEVELOPMENT OF ADDICTION, MOOD DISTURBANCE AND DEPRESSION, OSTEOPOROSIS, HORMONAL AND LABIDAL CHANGES, RESPIRATORY DEPRESSION AND . PATIENT IS ADVISED NOT TO DRIVE WHILE ON THESE MEDICATIONSREFER TO DR. ANNE PARIS-PT WILL CALL TO INQUIRE. PROCEDURE CODES FA211 ESTABILISHED PATIENT [facility] CHARGE DISPOSITION & COMMUNICATION FOLLOW UP 2 MONTHS (REASON: REFER TO DR. ANNE PARIS) ELECTRONICALLY SIGNED BY STEPHAN JOHNSON ON 10/18/2016 AT 03:42 PM EDT DISCLAIMER : THIS IS A VISIT SUMMARY EXTRACTED FROM THE [employer] CHART. IT IS NOT A COPY OF THE [employer] PROGRESS NOTE. MTDD
== END ==
LOC: M PAIN 14:00
PROVIDERS: ATTEND Nurse Practitioner Family
DX: G89.29 Other chronic pain (principal); K86.1 Other chronic pancreatitis; F32.9 Major depressive disorder, single episode, unspecified; F17.200 Nicotine dependence, unspecified, uncomplicated; Z88.0 Allergy status to penicillin; Z88.5 Allergy status to narcotic agent; Z88.8 Allergy status to other drugs, medicaments and biological substances; Z79.899 Other long term (current) drug therapy

== ENCOUNTER → 2016-12-13 | Outpatient (CLI) | payer OTHER ==
--- NOTE | 2017-01-02 00:54 | ECWPNPC ---
PATIENT NAME: MEL BOURGEOIS : 1965 GENDER: FEMALE VISIT DATE: 12/13/2016 DISCHARGE DATE: 12/13/16 1504 VISIT LOCKED DATE TIME: PHYSICIAN: ZACK BOLAND RESOURCE: ZACK BOLAND REASON FOR APPOINTMENT 1. MEDS HISTORY OF PRESENT ILLNESS HISTORY OF PRESENT ILLNESS: HERE FOR F/U AND MANAGEMENT OF CHRONIC ABDOMINAL PAIN WITH HX OF CHRONIC PANCREATITIS.USING NUCYNTA 100MG DAILY AND DILAUDID 4MG FOR SEVERE PAIN.FINDS MEDICATION SOMEWHAT EFFECTIVE. RATING PAIN VAS 5/10.HAVING A BAD DAY AND MORE FREQUENT BAD DAYS LATELY.DISCUSSED MEDICAL MARIJUANA AND MEDICINE TREATMENT OPTIONS.CURRENTLY USING DILAUDID 4MG 1-2 TAB W MAX 6 PER DAY.DISCUSSED POTENTIAL SIDE EFFECTS OF HIGH DOSE NARCOTIC PAIN MEDICATION. PAIN THE PATIENT DESCRIBES THE PAIN... THE PATIENT DESCRIBES THE PAIN... THE PATIENT DESCRIBES THE PAIN... THE PATIENT DESCRIBES THE PAIN... THE PATIENT DESCRIBES THE PAIN... THE PATIENT DESCRIBES THE PAIN... THE PATIENT DESCRIBES THE PAIN... FALL RISK SCREENING: SCREENING :NO FALLS IN THE PAST YEAR CURRENT MEDICATIONS TAKING VOLTAREN 1 % GEL APPLY 1 G TO EACH HAND TRANSDERMAL 4 TIMES A DAY NEEDED TAKING ZOFRAN ODT 4 MG TABLET DISPERSIBLE 1 TABLET ON THE TONGUE AND ALLOW TO DISSOLVE ORALLY EVERY 8 HRS TAKING ZANTAC 150 MG TABLET ONE HALF ORALLY DIRECTED NEEDED TAKING CLARINEX-D 24 HOUR 5-240 MG TABLET EXTENDED RELEASE 24 HOUR ORALLY DAILY NEEDED TAKING ZOFRAN 8 MG ODT 1 TABLET ORALLY EVERY 8 HOURS NEEDED FOR NAUSEA TAKING CYMBALTA 60 MG CAPSULE DELAYED RELEASE PARTICLES 1 CAPSULE ORALLY ONCE A DAY TAKING NUCYNTA ER 100 MG TABLET EXTENDED RELEASE 12 HOUR 1 TABLET ORALLY BID-MDD2 TAKING DILAUDID 4 MG TABLET 1-2 TABLET NEEDED ORALLY EVERY 6 HRS PRN MDD 6 NOT-TAKING CLOBETASOL PROPIONATE 0.05 % CREAM THIN FILM TO PSORIATIC PLAQUES ON ARMS, LEGS AND SCALP EXTERNALLY TWICE A DAY NOT-TAKING NUCYNTA ER 200 MG TABLET EXTENDED RELEASE 12 HOUR DIRECTED ORALLY DAILY AT HS NOT-TAKING MORPHINE SULFATE 15 MG TABLET 1 ORALLY EVERY 6H PRN MDD4 NOT-TAKING PSEUDOEPHEDRINE HCL 30 MG TABLET 1 - 2 TABLETS ORALLY EVERY 6 HOURS NEEDED FOR CONGESTION NOT-TAKING ZENPEP [id number] UNIT CAPSULE DELAYED RELEASE PARTICLES ORALLY THREE TIMES DAILY NOT-TAKING CUSTOM DO NOT USE TRAMADOL 50 MG TABLET 1-2 TABLETS ORALLY EVERY 6 HOURS NEEDED, MDD=8 NOT-TAKING OMEPRAZOLE 20MG 20MG TABLET 1 TABLET ORALLY ONCE A DAY NOT-TAKING TACLONEX SCALP 0.005-0.064 % SUSPENSION 1 DROP TO SCALP EXTERNALLY ONCE A DAY NOT-TAKING PATANOL 0.1 % SOLUTION 1 DROP INTO EACH EYE OPHTHALMIC TWICE A DAY, ABOUT 8 HOURS APART NOT-TAKING NORCO 5-325 MG TABLET 1 TABLET ORALLY THREE TIMES A DAY NEEDED FOR PAIN, MDD=3 NOT-TAKING TRAMADOL HCL 50 MG TABLET TAKE ONE TO TWO TABLETS BY MOUTH EVERY 6 HOURS NEEDED MAXIMUM DAILY DOSE = 8 TABLETS NOT-TAKING CELEXA 10 MG TABLET 1 TABLET ORALLY ONCE A DAY MEDICATION LIST REVIEWED AND RECONCILED WITH THE PATIENT PAST MEDICAL HISTORY OVERACTIVE BLADDER PSORIASIS TRANSIENT HEART MURMUR IRRITABLE BOWEL SYNDROME H/O ENDOMETRIOSIS DEPRESSION FAMILIAL ESSENTIAL TREMORS DOES NOT DRINK - HOSPITAL RECORD IS WRONG! PANCREATIC TUMOR ALLERGIES PENICILLIN V POTASSIUM: EXACERBATES PSORIASIS: ALLERGY CODEINE SULFATE: VOMITING: SIDE EFFECTS CYMBALTA: DIZZINESS, LISTED TO THE LEFT: SIDE EFFECTS SURGICAL HISTORY LAPAROSCOPIC CHOLECYSTECTOMY 08/07/2012 TOTAL VAGINAL HYTERECTOMY, SPARED OVARIES 2000 ERCP WITH 2 STENTS 12/29/2015 ERCP WITH PANCREATIC STENT REPLACEMENT Q 2 MONTHS SOCIAL HISTORY GENERAL: TOBACCO USE ARE YOU A:CURRENT SMOKER ARE YOU INTERESTED IN QUITTING?NOT READY TO QUIT COUNSELED THE PATIENT ON SMOKING EFFECTS, EDUCATION [id number]/31/2017 PATIENT COUNSELED ON THE DANGERS OF TOBACCO USE AND URGED TO QUIT:12/13/2016 ALCOHOL SCREENING POINTS0 INTERPRETATIONNEGATIVE SYNAGOGUE [id number] YAZIDI LANGUAGE LANGUAGES SPOKEN:MONGOLIAN LEARNING BARRIERS / SPECIAL NEEDS CHANGE FROM LAST VISIT?NO BARRIERS TO LEARNING?NO HEARING IMPAIRED?NO VISION IMPAIRED?YES GLASSES FOR READING COGNITIVELY IMPAIRED?NO READINESS TO LEARN?YES LEARNING PREFERENCES?NO LEARNING CAPABILITIES PRESENT?YES EMOTIONAL BARRIERS?NO SPECIAL DEVICES?NO SUPERVISOR PICKING CREW NEEDED?NO PAIN CLINIC PFS, CLERGY, PUBLIC HEALTH REFERRALS PFS REFERRAL NEEDED?NO CLERGY REFERRAL NEEDED?NO PUBLIC HEALTH REFERRAL NEEDED?NO WAS THE PROVIDER NOTIFIED OF ANY PERTINENT INFO?NO HAS THE PATIENT BEEN EDUCATED REGARDING HIS/HER PLAN OF CARE?YES HAS THE PATIENT BEEN EDUCATED REGARDING PAIN, THE RISK FOR PAIN, THE IMPORTANCE OF EFFECTIVE PAIN MANAGEMENT, AND THE PAIN ASSESSMENT PROCESS?YES PATIENT: ____. ADVANCE DIRECTIVES HEALTH CARE PROXY?YES NAME OF HCP TABATHA HAILE CONTACT # FOR HCP # [phone] DO YOU HAVE A COPY WITH YOU?NO DO YOU HAVE A DNR?NO WOULD YOU LIKE MORE INFORMATION?NO LIVING WILL?NO WOULD YOU LIKE MORE INFORMATION?NO POWER OF CONTAINER COORDINATOR?NO WOULD YOU LIKE MORE INFORMATION?NO HOSPITALIZATION/MAJOR DIAGNOSTIC PROCEDURE LAPAROSCOPIES, FINALLY HYSTERECTOMY LAPAROSCOPIC CHOLECYSTECTOMY (SAME DAY) July, PANCREATITIS 2013 STENT TO PANCREAS 2016 REVIEW OF SYSTEMS REVIEWED BY: PROVIDER: ZACK ROTHMAN . CONSTITUTIONAL: ANY CHANGE IN YOUR MEDICAL CONDITION? NO . CHILLS NO . FEVER NO . INFECTION: DO YOU HAVE NEW INFECTIONS? NO . DO YOU HAVE HISTORY OF MRSA? NO . MUSCULOSKELETAL: ANY NEW PATTERNS OF PAIN OR NUMBNESS? NO . GASTROENTEROLOGY: ANY NEW CHANGE IN BOWEL CONTROL? NO . GENITOURINARY: ANY NEW CHANGE IN BLADDER CONTROL? NO . IS THERE A CHANCE YOU COULD BE ? NO . HEMATOLOGY/LYMPH: DO YOU TAKE ANY BLOOD THINNERS? (FOR EXAMPLE- COUMADIN, PLAVIX, AGGRENOX, PLATEL, PRADAXA, OR XARELTO) NO . WHEN WAS YOUR LAST DOSE? DATE: TIME: . NEUROLOGY: HAVE YOU FALLEN IN THE PAST 6 MONTHS? NO . ANY NEW EXTREMITY NUMBNESS OR WEAKNESS? NO . CARDIOLOGY: DO YOU HAVE A PACEMAKER OR DEFIBRILLATOR? NO . RESPIRATORY: HAVE YOU BEEN SICK IN THE PAST WEEK? NO . FEVER NO . FLU LIKE SYMPTOMS? NO . COUGH NO . INTEGUMENTARY: DO YOU HAVE ANY RASHES OR OPEN SORES? NO . ALLERGIC/IMMUNO: ARE YOU ALLERGIC TO SHELLFISH OR IV DYE? NO . ANY NEW ALLERGIES? NO . PSYCHIATRIC: DO YOU HAVE THOUGHTS OF HURTING YOURSELF OR SOMEONE ELSE? NO . ARE YOU ABUSED, NEGLECTED, OR IN AN UNSAFE ENVIRONMENT? NO . ENDOCRINOLOGY: ARE YOU DIABETIC? NO . OTHER: DO YOU NEED ANY PRESCRIPTIONS? NO . IF YES, PLEASE LIST: ____ . ANY NEW PROBLEMS WITH YOUR MEDICATIONS? NO . WHEN DID YOU LAST EAT? ____ . WHEN DID YOU LAST DRINK? ____ . WHAT DID YOU LAST DRINK? ____ . NAME OF PERSON DRIVING YOU HOME? ____ . DO YOU HAVE ANY OTHER QUESTIONS OR CONCERNS NO . VITAL SIGNS WT 127.0 LBS, HT 63 IN, BMI 22.49 INDEX, BP 155/82 MM HG, HR 88 /MIN, RR 16 /MIN, TEMP 97.7 F, OXYGEN SAT % 98%, NA INITIALS TL 1420, REVIEWED BY: FRANKIE. EXAMINATION GENERAL EXAMINATION: LUNGS:LUNG SOUNDS ARE CLEAR. HEART:HEART RATE REGULAR. ABDOMEN:TENDER WITH PALPATION UPPER QUADS.NON TENDER LOWER ABD. QUADS.. MUSCULOSKELETAL:*. ASSESSMENTS CHRONIC PANCREATITIS, UNSPECIFIED PANCREATITIS TYPE - K86.1 (PRIMARY) CHRONIC PRESCRIPTION OPIATE USE - Z79.891 TREATMENT CHRONIC PANCREATITIS, UNSPECIFIED PANCREATITIS TYPE REFILL ZOFRAN ODT TABLET DISPERSIBLE, 4 MG, 1 TABLET ON THE TONGUE AND ALLOW TO DISSOLVE, ORALLY, EVERY 8 HRS, 30 DAY(S), 90, REFILLS 3 REFILL CYMBALTA CAPSULE DELAYED RELEASE PARTICLES, 60 MG, 1 CAPSULE, ORALLY, ONCE A DAY, 7 DAY(S), 7 CAPSULE, REFILLS 0 CONTINUE NUCYNTA ER TABLET EXTENDED RELEASE 12 HOUR, 100 MG, 1 TABLET, ORALLY, BID-MDD2 REFILL DILAUDID TABLET, 4 MG, 1-2 TABLET NEEDED, ORALLY, EVERY 6 HRS PRN MDD 6, 7 DAYS, 42, REFILLS 0 NOTES: [employer] REGISTRY REVIEWED [id number] RISKS AND BENEFITS OF NARCOTIC/OPIOD MEDICATIONS WERE REVIEWED WITH PATIENT - THIS INCLUDES BUT IS NOT LIMITED TO RISK OF DEPENDANCE/DEVELOPMENT OF ADDICTION, MOOD DISTURBANCE AND DEPRESSION, OSTEOPOROSIS, HORMONAL AND LABIDAL CHANGES, RESPIRATORY DEPRESSION AND . PATIENT IS ADVISED NOT TO DRIVE WHILE ON THESE MEDICATIONS, AND DEMNOSTRATES COMPLLIANCE. BRINGS IN MEDICATIONS WHICH IS APPROPRIATE FOR WHAT WAS DISPENSED. RECENT URINE TOXICOLOGY REVIEWED. NO UNAUTHORIZED MEDICATIONS. NO ILLICIT SUBSTANCES AND PRESCRIBED MEDICATIONS WERE PRESENT. PROCEDURE CODES [id number] ESTABILISHED PATIENT [facility] CHARGE DISPOSITION & COMMUNICATION FOLLOW UP 2 MONTHS ELECTRONICALLY SIGNED BY STEPHAN JOHNSON ON 01/01/2017 AT 02:40 PM EST DISCLAIMER : THIS IS A VISIT SUMMARY EXTRACTED FROM THE [employer] CHART. IT IS NOT A COPY OF THE [employer] PROGRESS NOTE. MTDD
== END ==
LOC: M PAIN 14:00
PROVIDERS: ATTEND Nurse Practitioner Family
DX: K86.1 Other chronic pancreatitis (principal); Z79.891 Long term (current) use of opiate analgesic; F17.210 Nicotine dependence, cigarettes, uncomplicated; Z88.0 Allergy status to penicillin; Z88.5 Allergy status to narcotic agent; Z88.8 Allergy status to other drugs, medicaments and biological substances; Z90.49 Acquired absence of other specified parts of digestive tract; Z90.710 Acquired absence of both cervix and uterus

== ENCOUNTER → 2017-03-09 | Outpatient (CLI) | payer OTHER | LOC: M PAIN 14:00 | DX: G89.29 Other chronic pain (principal); K86.1 Other chronic pancreatitis; L40.9 Psoriasis, unspecified; F32.9 Major depressive disorder, single episode, unspecified; G25.0 Essential tremor; F17.200 Nicotine dependence, unspecified, uncomplicated; Z79.891 Long term (current) use of opiate analgesic; Z79.899 Other long term (current) drug therapy; Z88.0 Allergy status to penicillin; Z88.2 Allergy status to sulfonamides; Z88.8 Allergy status to other drugs, medicaments and biological substances | CPT/HCPCS: G0463 ==

== ENCOUNTER → 2017-04-07 | Outpatient (CLI) | payer OTHER | LOC: M PAIN 11:30 | DX: K86.1 Other chronic pancreatitis (principal); Z79.891 Long term (current) use of opiate analgesic; Z79.899 Other long term (current) drug therapy; Z88.8 Allergy status to other drugs, medicaments and biological substances | CPT/HCPCS: G0463 ==

== ENCOUNTER → 2017-07-03 | Outpatient (CLI) | payer BC, OTHER ==
[~2017-07-03] MED LIST changes: -ALEV220C2 PO; -CIPR500T89 PO; -CLOB0.0548 TOP; -CLOB0.058 TOP; -FLAG500T PO; -FOLI1TAB86 PO; -GABA-282 PO; +GASTROGRAFIN SOLUTION 30ML (Q9963) As Ordered; -IBUP200T2 PO; +ISOVUE-370 76% 100ML VIAL (Q9967) As Ordered; -MORP15TA2 PO; -MORP15TASA PO; -MS C200T PO; -MSIR30TA PO; -NEUR300C PO; -NUCY100T11 PO; -NUCY100T3 PO; -NUCY75TA3 PO; -PRIL20TA2 PO; -PRIL40CA PO; -REGL10TA6 PO; -SENO8.6T9 PO; -TAZO0.052 TOP; -TRAM1CAP15 PO; -TRAM50TA2 PO; -ULTR50TA PO; -VITA100T92 PO; -ZANT1TAB PO; -ZENP1CAP PO; -ZOFR8TAB PO; -[UNRECOGNIZED DRUG - CODE] PO; -[UNRECOGNIZED DRUG - CODE] PO; -[UNRECOGNIZED DRUG - OTHER] TOP
== END ==
LOC: M RAD 09:19
DX: K85.90 Acute pancreatitis without necrosis or infection, unspecified (principal); R10.9 Unspecified abdominal pain
CPT/HCPCS: Q9967

== ENCOUNTER → 2017-07-12 | Outpatient (CLI) | payer OTHER | LOC: M PAIN 10:30 | DX: G89.29 Other chronic pain (principal); K86.1 Other chronic pancreatitis; N32.81 Overactive bladder; L40.9 Psoriasis, unspecified; K58.9 Irritable bowel syndrome, unspecified; F32.9 Major depressive disorder, single episode, unspecified; G25.0 Essential tremor; F17.210 Nicotine dependence, cigarettes, uncomplicated; Z79.891 Long term (current) use of opiate analgesic; Z79.899 Other long term (current) drug therapy; Z88.0 Allergy status to penicillin; Z88.5 Allergy status to narcotic agent; Z88.8 Allergy status to other drugs, medicaments and biological substances | CPT/HCPCS: G0463 ==

== ENCOUNTER → 2017-09-20 | Outpatient (CLI) | payer OTHER | LOC: M PAIN 13:45 | DX: K86.1 Other chronic pancreatitis (principal); Z79.891 Long term (current) use of opiate analgesic; Z79.899 Other long term (current) drug therapy; Z88.8 Allergy status to other drugs, medicaments and biological substances; Z90.710 Acquired absence of both cervix and uterus; Z90.49 Acquired absence of other specified parts of digestive tract | CPT/HCPCS: G0463 ==

== ENCOUNTER → 2017-11-01 | Outpatient (CLI) | payer OTHER | LOC: M PAIN 13:15 | DX: K86.1 Other chronic pancreatitis (principal); F32.9 Major depressive disorder, single episode, unspecified; F17.210 Nicotine dependence, cigarettes, uncomplicated; Z79.891 Long term (current) use of opiate analgesic; Z79.899 Other long term (current) drug therapy; Z88.0 Allergy status to penicillin; Z88.5 Allergy status to narcotic agent; Z88.8 Allergy status to other drugs, medicaments and biological substances | CPT/HCPCS: G0463 ==

== ENCOUNTER 2018-02-13 19:32 | Emergency (ER) | payer BC, OTHER ==
[~2018-02-13] VITALS: Ht 160 cm; Wt 54.5 kg
[~2018-02-13 19:32] MED LIST changes: +ALEV220C2 PO; +CIPR500T89 PO; +CLOB0.0548 TOP; +CLOB0.058 TOP; +FLAG500T PO; +FOLI1TAB86 PO; +GABA-843 PO; -GASTROGRAFIN SOLUTION 30ML (Q9963) As Ordered; +IBUP200T2 PO; -ISOVUE-370 76% 100ML VIAL (Q9967) As Ordered; +MORP15TA2 PO; +MORP15TASA PO; +MS C200T PO; +MSIR30TA PO; +NEUR300C PO; +NUCY100T11 PO; +NUCY100T16 PO; +NUCY75TA11 PO; +PRIL20TA2 PO; +PRIL40CA PO; +REGL10TA6 PO; +SENO8.6T9 PO; +TAZO0.052 TOP; +TRAM1CAP15 PO; +TRAM50TA2 PO; +ULTR50TA PO; +VITA100T92 PO; +ZANT150T15 PO; +ZENP1CAP PO; +ZOFR8TAB PO; +ZOFR8TAB24 PO; +[UNRECOGNIZED DRUG - CODE] PO; +[UNRECOGNIZED DRUG - CODE] PO; +[UNRECOGNIZED DRUG - OTHER] TOP
[2018-02-13] MEDS ORDERED: DILA4TAB13 PO (19:38)
[2018-02-13] MEDS ORDERED: NS 1,000 ML IV ONE (20:15)
[2018-02-13 20:22] LABS: BASO # 0.1 10^3/uL (0.0-0.2); BASO % 0.6 % (0.0-1.0); EOS % 0.2 % (0.0-3.0); HEMATOCRIT 47.8 % (36.0-47.0); HEMOGLOBIN 16.9 g/dl (12.0-15.5); LYMPH # 2.5 10^3/uL (1.5-4.5); LYMPH % 18.7 % (24.0-44.0); MEAN CORPUSCULAR HGB CONC 35.4 g/dl (32.0-36.5); MEAN CORPUSCULAR VOLUME 93.4 fl (80.0-96.0); MONO # 0.5 10^3/uL (0.0-0.8); MONO % 3.6 % (0.0-5.0); NEUTROPHILS # 10.3 10^3/uL (1.8-7.7); NEUTROPHILS % 76.5 % (36.0-66.0); PLATELET COUNT, AUTOMATED 266 10^3/uL (150-450); RED BLOOD COUNT 5.12 10^6/uL (4.00-5.40); WHITE BLOOD COUNT 13.5 10^3/uL (4.0-10.0)
[2018-02-13] MEDS: HYDROMORPHONE HCL 0.5 MG/ 0.5 ML SYRINGE (J1170 PER 1) IV PRN ×2 (20:28→22:10)
[2018-02-13] MEDS ORDERED: ONDANSETRON 4MG/2ML VIAL (J2405) IV ONE ×2 (20:30→22:15)
[2018-02-13 20:32] LABS: INR 1.01; PROTHROMBIN TIME 13.4 SECONDS (12.1-14.4)
[2018-02-13 20:33] LABS: PARTIAL THROMBOPLASTIN TIME 27.1 SECONDS (25.4-37.6)
[2018-02-13 20:51] LABS: ALBUMIN 4.2 GM/DL (3.2-5.2); ALT/SGPT 22 U/L (12-78); AMYLASE 64 U/L (25-115); BILIRUBIN,DIRECT 0.1 MG/DL (0.0-0.2); BILIRUBIN,TOTAL 0.5 MG/DL (0.2-1.0); BLOOD UREA NITROGEN 10 MG/DL (7-18); CALCIUM LEVEL 9.2 MG/DL (8.5-10.1); CARBON DIOXIDE LEVEL 24 MEQ/L (21-32); CHLORIDE LEVEL 102 MEQ/L (98-107); CPK CREATINE PHOSPHOKINASE 77 U/L (26-192); CREATININE FOR GFR 0.59 MG/DL (0.55-1.30); GLOMERULAR FILTRATION RATE > 60.0 (>51); GLUCOSE, FASTING 129 MG/DL (70-100); LIPASE 68 U/L (73-393); POTASSIUM SERUM 3.3 MEQ/L (3.5-5.1); SODIUM LEVEL 139 MEQ/L (136-145); TROPONIN I < 0.02 NG/ML (< 0.10)
[2018-02-13] MEDS ORDERED: ISOVUE-370 76% 100ML VIAL (Q9967) As Ordered ONE (21:03)
[2018-02-13 22:04] VITALS: BP 131/70
--- NOTE | 2018-02-13 22:04 | REPVR ---
EXAM: CT Abdomen and Pelvis With Contrast EXAM DATE/TIME: 02/13/2018 9:04 PM CLINICAL HISTORY: 52 years old, female; Pain and condition or disease; Pancreatic condition; Pseudocyst; Abdominal pain; Epigastric; Additional info: Severe upper abdominal pain; HX of pancreatitis/cyst TECHNIQUE: Axial computed tomography images of the abdomen and pelvis with intravenous contrast. All CT scans at this facility use at least one of these dose optimization techniques: automated exposure control; mA and/or kV adjustment per patient size (includes targeted exams where dose is matched to clinical indication); or iterative reconstruction. Coronal and sagittal reformatted images were created and reviewed. CONTRAST: 100 ml of isovue 370 administered intravenously. COMPARISON: CT ABD PELVIS W/O FOL BY WIT 07/03/2017 9:33 AM FINDINGS: Lower thorax: No acute findings. ABDOMEN: Liver: Normal. No mass. Gallbladder and bile ducts: Surgical clips noted in the gallbladder fossa. The gallbladder is not seen as a separate structure. Pancreas: Calcifications are noted within the tail of the pancreas. There is a low density lesion in the head of the pancreas measuring 1.2 x 1.2 x 1.3 cm. Previously this measured 7 mm in maximum diameter.. Spleen: Normal. No splenomegaly. Adrenals: Normal. No mass. Kidneys and ureters: Normal. No hydronephrosis. Stomach and bowel: The low density mass noted along the posterior wall of the stomach today measures 2 x 2.6 x 1.4 cm compared to previous measurement of 2.5 x 2.2 x 2.2 cm. The mass appears to be submucosal in location it isn't contiguous with the tail of the pancreas posteriorly Appendix: No evidence of appendicitis. PELVIS: Bladder: Unremarkable as visualized. Reproductive: The uterus is absent. ABDOMEN and PELVIS: Intraperitoneal space: Normal. No free air. No significant fluid collection. Bones/joints: Degenerative changes noted of the lumbar spine and L4-5 with endplate sclerosis, marginal osteophytes and vacuum disc phenomenon. There is a sclerosis within the right femoral head and right acetabulum are unchanged from previous. Soft tissues: Unremarkable. 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 Varices also surround the greater curvature of the stomach. Lymph nodes: Normal. No enlarged lymph nodes. IMPRESSION: 1. Submucosal mass along the greater curvature of the stomach posteriorly significantly changed from previous. 2. Enlarging cystic lesion in the head of the pancreas may represent a pseudocyst. Other cystic neoplasms of the pancreas might be considered 3. Calcific pancreatitis. 4. 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
--- NOTE | 2018-02-14 17:02 | ECGEPIP ---
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
[2018-02-14] MEDS ORDERED: REGL10TA6 PO (22:23)
[2018-02-14] MEDS ORDERED: ZOFR4TAB14 PO (22:23)
== END 2018-02-13 22:56 | disposition home or self-care (01) ==
LOC: M ED 19:32
DX: R10.9 Unspecified abdominal pain (principal); R11.2 Nausea with vomiting, unspecified; K86.89 Other specified diseases of pancreas
CPT/HCPCS: 36415; 74177; 80048; 80076; 82150; 82550; 82553; 83605; 83690; 84484; 85025; 85610; 85730; 93005; 96361; 96374; 96375; 96376; 99284; J1170; J2405; Q9967

== ENCOUNTER → 2018-03-08 | Outpatient (CLI) | payer BC, OTHER ==
[~2018-03-08] MED LIST changes: +DILA4TAB13 PO; +ZOFR4TAB14 PO
--- NOTE | 2018-03-23 01:45 | ECWPNPC ---
PATIENT NAME: MEL BOURGEOIS : 1965 GENDER: FEMALE VISIT DATE: 03/08/2018 DISCHARGE DATE: 03/08/18 1303 VISIT LOCKED DATE TIME: PHYSICIAN: ZACK BOLAND PHYSICIAN PAGER NO: [phone] RESOURCE: ZACK BOLAND REASON FOR APPOINTMENT 1. MED MGMT HISTORY OF PRESENT ILLNESS HISTORY OF PRESENT ILLNESS: HERE FOR F/U OF CHRONIC ABDOMINAL PAIN .HAS HAD SEVERE INCREASE IN ABDOMINAL PAIN OVER TH PAST 2 MONTHS.HAS NOT BEEN ABLE TO TOLERATE TRAMADOL DUE TO STOMACH PAIN.HAS HAD 2 ER VISITS SINCE LAST VISIT FOR SEVERE PAIN.RECENT CT OF ABDOMEN WAS SHOWING ENLARGEMENT OF PANCREATIC CYST.RATING PAIN VAS 4-10/10. PAIN THE PATIENT DESCRIBES THE PAIN... FALL RISK SCREENING: SCREENING :NO FALLS IN THE PAST YEAR CURRENT MEDICATIONS TAKING ZANTAC 150 MG TABLET ONE HALF ORALLY DIRECTED NEEDED TAKING CLARINEX-D 24 HOUR 5-240 MG TABLET EXTENDED RELEASE 24 HOUR ORALLY DAILY NEEDED TAKING ZOFRAN 8 MG ODT 1 TABLET ORALLY EVERY 8 HOURS NEEDED FOR NAUSEA TAKING PSEUDOEPHEDRINE HCL 30 MG TABLET 1 - 2 TABLETS ORALLY EVERY 6 HOURS NEEDED FOR CONGESTION TAKING VOLTAREN 1 % GEL ONE GRAM TO AFFECTED AREA 4 TIMES A DAY NEEDED TAKING TRAMADOL HCL 50 MG TABLET 1-2 TAB ORALLY EVERY 6 HRS PRN MDD4 TAKING DILAUDID 4 MG TABLET 1 TAB ORALLY Q8H PRN MDD3 TAKING ZOFRAN ODT 4 MG TABLET DISINTEGRATING 1 TABLET ON THE TONGUE AND ALLOW TO DISSOLVE ORALLY EVERY 8 HRS NOT-TAKING GABAPENTIN 100 MG CAPSULE 1 CAPSULE ORALLY THREE TIMES A DAY NOT-TAKING CLOBETASOL PROPIONATE 0.05 % CREAM THIN FILM TO PSORIATIC PLAQUES ON ARMS, LEGS AND SCALP EXTERNALLY TWICE A DAY NOT-TAKING TACLONEX SCALP 0.005-0.064 % SUSPENSION 1 DROP TO SCALP EXTERNALLY ONCE A DAY NOT-TAKING NUCYNTA ER 200 MG TABLET EXTENDED RELEASE 12 HOUR DIRECTED ORALLY DAILY AT HS NOT-TAKING MORPHINE SULFATE 15 MG TABLET 1 ORALLY EVERY 6H PRN MDD4 NOT-TAKING ZENPEP [id number] UNIT CAPSULE DELAYED RELEASE PARTICLES ORALLY THREE TIMES DAILY NOT-TAKING CUSTOM DO NOT USE TRAMADOL 50 MG TABLET 1-2 TABLETS ORALLY EVERY 6 HOURS NEEDED, MDD=8 NOT-TAKING OMEPRAZOLE 20MG 20MG TABLET 1 TABLET ORALLY ONCE A DAY NOT-TAKING PATANOL 0.1 % SOLUTION 1 DROP INTO EACH EYE OPHTHALMIC TWICE A DAY, ABOUT 8 HOURS APART NOT-TAKING NORCO 5-325 MG TABLET 1 TABLET ORALLY THREE TIMES A DAY NEEDED FOR PAIN, MDD=3 NOT-TAKING TRAMADOL HCL 50 MG TABLET TAKE ONE TO TWO TABLETS BY MOUTH EVERY 6 HOURS NEEDED MAXIMUM DAILY DOSE = 8 TABLETS NOT-TAKING CELEXA 10 MG TABLET 1 TABLET ORALLY ONCE A DAY MEDICATION LIST REVIEWED AND RECONCILED WITH THE PATIENT PAST MEDICAL HISTORY OVERACTIVE BLADDER PSORIASIS TRANSIENT HEART MURMUR IRRITABLE BOWEL SYNDROME H/O ENDOMETRIOSIS DEPRESSION FAMILIAL ESSENTIAL TREMORS DOES NOT DRINK - HOSPITAL RECORD IS INCORRECT CHRONIC PANCREATITIS/PANCREATIC DUCT STRICTURES, S/P CBD AND PANCREATIC DUCT STENTS [id number]; 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, FOLLOWED UR CHRONIC ABD PAIN--SEES PAIN CLINIC IDENTIFIES TABATHA HAILE HCP ALLERGIES PENICILLIN V POTASSIUM: EXACERBATES PSORIASIS: ALLERGY CODEINE SULFATE: VOMITING: SIDE EFFECTS CYMBALTA: DIZZINESS, LISTED TO THE LEFT: SIDE EFFECTS PHENERGAN: MADE HER ITCH ALL OVER: SIDE EFFECTS NUCYNTA: VOMITING: SIDE EFFECTS REGLAN: INCREASED ABD PAIN/CRAMPING: CONTRAINDICATION SURGICAL HISTORY LAPAROSCOPIC CHOLECYSTECTOMY 08/07/2012 TOTAL VAGINAL HYTERECTOMY, SPARED OVARIES 2000 ERCP WITH 2 STENTS 12/29/2015 ERCP WITH PANCREATIC STENT REPLACEMENT Q 2 MONTHS FAMILY HISTORY FATHER: 77 YRS, COPD MOTHER: , SUICIDE, MUNCHAUSSEN'S SYNDROME, DIAGNOSED WITH PSYCHIATRIC CONDITIONS MATERNAL AUNT: BREAST CA, DIAGNOSED WITH CANCER 3 GREAT-AUNTS WITH PANCREATIC CA. SOCIAL HISTORY GENERAL: TOBACCO USE ARE YOU A:CURRENT SMOKER ARE YOU INTERESTED IN QUITTING?NOT READY TO QUIT COUNSELED THE PATIENT ON SMOKING EFFECTS, EDUCATION [id number] PATIENT COUNSELED ON THE DANGERS OF TOBACCO USE AND URGED TO QUIT:03/08/2018 ALCOHOL SCREENING DID YOU HAVE A DRINK CONTAINING ALCOHOL IN THE PAST YEAR?NO POINTS0 INTERPRETATIONNEGATIVE RECREATIONAL DRUG USE DRUG USE?NO PRESYBETERIAN [id number] ORIENTAL ORTHODOX LANGUAGE LANGUAGES SPOKEN:KYRGYZ LEARNING BARRIERS / SPECIAL NEEDS CHANGE FROM LAST VISIT?NO BARRIERS TO LEARNING?NO HEARING IMPAIRED?NO VISION IMPAIRED?YES GLASSES FOR READING COGNITIVELY IMPAIRED?NO READINESS TO LEARN?YES LEARNING PREFERENCES?NO LEARNING CAPABILITIES PRESENT?YES EMOTIONAL BARRIERS?NO SPECIAL DEVICES?NO CAMPUS SUPERVISOR NEEDED?NO PAIN CLINIC PFS, CLERGY, PUBLIC HEALTH REFERRALS PFS REFERRAL NEEDED?NO CLERGY REFERRAL NEEDED?NO PUBLIC HEALTH REFERRAL NEEDED?NO WAS THE PROVIDER NOTIFIED OF ANY PERTINENT INFO?NO HAS THE PATIENT BEEN EDUCATED REGARDING HIS/HER PLAN OF CARE?YES HAS THE PATIENT BEEN EDUCATED REGARDING PAIN, THE RISK FOR PAIN, THE IMPORTANCE OF EFFECTIVE PAIN MANAGEMENT, AND THE PAIN ASSESSMENT PROCESS?YES ADVANCE DIRECTIVE ADVANCE DIRECTIVE DISCUSSED WITH PATIENT:YES HCP - HUSSAIN MIC REVIEWED WITH PATIENT 03/08/18 1221 JS. HOSPITALIZATION/MAJOR DIAGNOSTIC PROCEDURE LAPAROSCOPIES, FINALLY HYSTERECTOMY LAPAROSCOPIC CHOLECYSTECTOMY (SAME DAY) July, PANCREATITIS 2013 STENT TO PANCREAS 2016 REVIEW OF SYSTEMS REVIEWED BY: PROVIDER: ZACK ROTHMAN . CONSTITUTIONAL: ANY CHANGE IN YOUR MEDICAL CONDITION? NO . CHILLS NO . FEVER NO . INFECTION: DO YOU HAVE NEW INFECTIONS? NO . DO YOU HAVE HISTORY OF MRSA? NO . MUSCULOSKELETAL: ANY NEW PATTERNS OF PAIN OR NUMBNESS? YES, STATES PAIN WORSENING . GASTROENTEROLOGY: ANY NEW CHANGE IN BOWEL CONTROL? NO . GENITOURINARY: ANY NEW CHANGE IN BLADDER CONTROL? NO . IS THERE A CHANCE YOU COULD BE ? NO . HEMATOLOGY/LYMPH: DO YOU TAKE ANY BLOOD THINNERS? (FOR EXAMPLE- COUMADIN, PLAVIX, AGGRENOX, PLATEL, PRADAXA, OR XARELTO) NO . WHEN WAS YOUR LAST DOSE? DATE: TIME: . NEUROLOGY: HAVE YOU FALLEN IN THE PAST 12 MONTHS? NO . ANY NEW EXTREMITY NUMBNESS OR WEAKNESS? NO . CARDIOLOGY: DO YOU HAVE A PACEMAKER OR DEFIBRILLATOR? NO . RESPIRATORY: HAVE YOU BEEN SICK IN THE PAST WEEK? NO . FEVER NO . FLU LIKE SYMPTOMS? NO . COUGH NO . INTEGUMENTARY: DO YOU HAVE ANY RASHES OR OPEN SORES? NO . ALLERGIC/IMMUNO: ARE YOU ALLERGIC TO IV DYE? NO . ANY NEW ALLERGIES? NO . PSYCHIATRIC: DO YOU HAVE THOUGHTS OF HURTING YOURSELF OR SOMEONE ELSE? NO . ARE YOU ABUSED, NEGLECTED, OR IN AN UNSAFE ENVIRONMENT? NO . ENDOCRINOLOGY: ARE YOU DIABETIC? NO . OTHER: DO YOU NEED ANY PRESCRIPTIONS? YES . IF YES, PLEASE LIST: ____NAV PAT . ANY NEW PROBLEMS WITH YOUR MEDICATIONS? NO . WHEN DID YOU LAST EAT? ____ . WHEN DID YOU LAST DRINK? ____ . WHAT DID YOU LAST DRINK? ____ . NAME OF PERSON DRIVING YOU HOME? ____ . DO YOU HAVE ANY OTHER QUESTIONS OR CONCERNS NO . VITAL SIGNS WT 124.6 LBS, HT 63 IN, BMI 22.07 INDEX, BP 164/97 MM HG, HR 93 /MIN, RR 16 /MIN, TEMP 97.9 F, OXYGEN SAT % 96%, SAFE IN ENV? (Y/N) YES, NA INITIALS WI 12:10, REVIEWED BY: JOEL. EXAMINATION GENERAL EXAMINATION: GENERAL APPEARANCE:AWAKE,ALERT ,PLEAASANT . PSYCHAFFECT NORMAL . LUNGS:LUNG RAMIREZ ARE CLEAR TO AUSCULTATION BILATERALLY. GOOD MOVEMENT OF AIR . HEART:S1, S2 IN A REGULAR RATE AND RHYTHM. NO SIGNIFICANT MURMURS, RUBS OR GALLOPS NOTED . ASSESSMENTS CHRONIC PANCREATITIS, UNSPECIFIED PANCREATITIS TYPE - K86.1 (PRIMARY) TREATMENT CHRONIC PANCREATITIS, UNSPECIFIED PANCREATITIS TYPE INCREASE DILAUDID TABLET, 4 MG, 1//2 TAB, ORALLY, Q6H PRN MDD6, 30 DAY(S), 180, REFILLS 0 START CYMBALTA CAPSULE DELAYED RELEASE PARTICLES, 30 MG, 1 CAPSULE, ORALLY, ONCE A DAY, 30 DAY(S), 30, REFILLS 2 NOTES: ISTOP REGISTRY REVIEWED AND DEMONSTRATES COMPLLIANCE. BRINGS IN MEDICATIONS WHICH IS APPROPRIATE FOR WHAT WAS DISPENSED. RECENT URINE TOXICOLOGY REVIEWED. NO UNAUTHORIZED MEDICATIONS. NO ILLICIT SUBSTANCES AND PRESCRIBED MEDICATIONS WERE PRESENT. , RISKS AND BENEFITS OF NARCOTIC/OPIOD MEDICATIONS WERE REVIEWED WITH PATIENT - THIS INCLUDES BUT IS NOT LIMITED TO RISK OF DEPENDANCE/DEVELOPMENT OF ADDICTION, MOOD DISTURBANCE AND DEPRESSION, OSTEOPOROSIS, HORMONAL AND LABIDAL CHANGES, RESPIRATORY DEPRESSION AND . PATIENT IS ADVISED NOT TO DRIVE OR DRINK ALCOHOL WHILE ON THESE MEDICATIONS. PROCEDURE CODES FA211 ESTABILISHED PATIENT [facility] CHARGE DISPOSITION & COMMUNICATION FOLLOW UP 4-6WKS ELECTRONICALLY SIGNED BY STEPHAN CALLE ON 03/22/2018 AT 12:58 PM EST DISCLAIMER : THIS IS A VISIT SUMMARY EXTRACTED FROM THE [employer] CHART. IT IS NOT A COPY OF THE [employer] PROGRESS NOTE. KIMMY
== END ==
LOC: M PAIN 11:30
PROVIDERS: ATTEND Nurse Practitioner Family
DX: K86.1 Other chronic pancreatitis (principal); F32.9 Major depressive disorder, single episode, unspecified; G25.0 Essential tremor; L40.9 Psoriasis, unspecified; Z72.0 Tobacco use; Z79.891 Long term (current) use of opiate analgesic; Z79.899 Other long term (current) drug therapy; Z88.0 Allergy status to penicillin; Z88.5 Allergy status to narcotic agent; Z88.8 Allergy status to other drugs, medicaments and biological substances

== ENCOUNTER 2018-03-27 16:34 | Emergency (ER) | payer BC, OTHER ==
[~2018-03-27] VITALS: Ht 160 cm; Wt 54.5 kg
[2018-03-27] MEDS ORDERED: TRAM50TA2 (16:38)
[2018-03-27] MEDS ORDERED: DULO1CAP2 (16:38)
[2018-03-27] MEDS ORDERED: DICL1GEL3 (16:38)
[2018-03-27] MEDS ORDERED: ONDANSETRON 4MG/2ML VIAL (J2405) IV ONE (17:30)
[2018-03-27] MEDS ORDERED: NS 1,000 ML IV ONE (17:30)
[2018-03-27] MEDS: HYDROMORPHONE HCL 0.5 MG/ 0.5 ML SYRINGE (J1170 PER 1) IV PRN ×2 (17:46→18:12)
[2018-03-27 17:47] LABS: BASO # 0.1 10^3/uL (0.0-0.2); BASO % 0.3 % (0.0-1.0); EOS # 0.1 10^3/uL (0.0-0.50); EOS % 0.4 % (0.0-3.0); HEMATOCRIT 46.1 % (36.0-47.0); HEMOGLOBIN 15.9 g/dl (12.0-15.5); LYMPH # 2.7 10^3/uL (1.5-4.5); LYMPH % 17.2 % (24.0-44.0); MEAN CORPUSCULAR HEMOGLOBIN 33.8 pg (27.0-33.0); MEAN CORPUSCULAR HGB CONC 34.5 g/dl (32.0-36.5); MEAN CORPUSCULAR VOLUME 98.1 fl (80.0-96.0); MONO # 1.4 10^3/uL (0.0-0.8); MONO % 8.9 % (0.0-5.0); NEUTROPHILS # 11.4 10^3/uL (1.8-7.7); NEUTROPHILS % 72.9 % (36.0-66.0); PLATELET COUNT, AUTOMATED 251 10^3/uL (150-450); WHITE BLOOD COUNT 15.7 10^3/uL (4.0-10.0)
[2018-03-27 18:14] LABS: ALT/SGPT 32 U/L (12-78); AMYLASE 24 U/L (25-115); BILIRUBIN,DIRECT 0.2 MG/DL (0.0-0.2); BILIRUBIN,TOTAL 0.5 MG/DL (0.2-1.0); BLOOD UREA NITROGEN 12 MG/DL (7-18); CALCIUM LEVEL 8.9 MG/DL (8.5-10.1); CARBON DIOXIDE LEVEL 27 MEQ/L (21-32); CHLORIDE LEVEL 96 MEQ/L (98-107); CREATININE FOR GFR 0.74 MG/DL (0.55-1.30); GLOMERULAR FILTRATION RATE > 60.0 (>51); GLUCOSE, FASTING 118 MG/DL (70-100); LIPASE 98 U/L (73-393); POTASSIUM SERUM 3.2 MEQ/L (3.5-5.1); SODIUM LEVEL 134 MEQ/L (136-145); TOTAL PROTEIN 7.3 GM/DL (6.4-8.2)
--- NOTE | 2018-03-27 19:36 | REPVR ---
EXAM: CT Abdomen and Pelvis Without Contrast EXAM DATE/TIME: 03/27/2018 6:30 PM CLINICAL HISTORY: 52 years old, female; Pain; Abdominal pain; Flank; Left; Additional info: L flank pain, hematuria TECHNIQUE: Axial computed tomography images of the abdomen and pelvis without contrast. All CT scans at this facility use at least one of these dose optimization techniques: automated exposure control; mA and/or kV adjustment per patient size (includes targeted exams where dose is matched to clinical indication); or iterative reconstruction. Coronal and sagittal reformatted images were created and reviewed. COMPARISON: No relevant prior studies available. FINDINGS: Lower thorax: Clear appearing lungs bases. The heart is normal in size. ABDOMEN: Liver: The right lobe of the liver measures 18 CM in length. The liver has uniform density. Gallbladder and bile ducts: The patient is post cholecystectomy. There is enlargement of the midportion of the common bile duct measuring 1 cm. This may be ectasia secondary to the patient being post cholecystectomy. There are numerous calcifications especially at the tail of the pancreas probably the result of chronic changes of pancreatitis. Pancreas: There is hazy increased density surrounding the pancreas and this would be suspicious for acute changes pancreatitis. Correlation with laboratory evaluation would be important. It would be helpful to have a CT scan of the pancreas with contrast or MRI scan of the pancreas for further evaluation. Spleen: Normal spleen. Adrenals: Normal adrenal glands. Kidneys and ureters: No evidence of calcified stone right or left kidney. Stomach and bowel: The cecum is in the right pelvis. Appendix: No evidence of appendicitis. PELVIS: Bladder: Normal urinary bladder. The patient is status post hysterectomy. ABDOMEN and PELVIS: Intraperitoneal space: There is no evidence of pneumoperitoneum. There is no evidence of free fluid in the abdomen or pelvis. Bones/joints: There is no evidence of bony abnormality. There is moderate broad-based disc protrusion L4-L5 causing moderate impression on the thecal sac. Soft tissues: Unremarkable. Vasculature: Prominent vessels upper abdomen and mesentery probably representing small varices. There is calcification of the aorta consistent with atherosclerotic changes. Lymph nodes: Small lymph nodes in the mesentery IMPRESSION: 1. There is enlargement of the pancreas with hazy increased density surrounding and this could be secondary to pancreatitis. Calcification and changes of chronic pancreatitis noted. I would recommend correlation with a CT scan of the pancreas with contrast or MRI scan of the pancreas with contrast. 2. Prominence of the common bile duct measuring 1 CM. 3. Probable small varices upper abdomen Electronically signed by: Edil Tirado On 03/27/2018 19:35:49 PM
[2018-03-27 19:56] VITALS: BP 112/77
--- NOTE | 2018-03-28 09:50 | ED PDOC ---
Post-Departure Follow-Up dr madera faxed formal report of ct abd/p for fu Brennan Mishra MD Mar 28, 2018 09:50
== END 2018-03-27 20:06 | disposition home or self-care (01) ==
LOC: M ED 16:34
DX: K85.90 Acute pancreatitis without necrosis or infection, unspecified (principal); K86.1 Other chronic pancreatitis
CPT/HCPCS: 36415; 74176; 80048; 80076; 81001; 82150; 83605; 83690; 85025; 96374; 96375; 96376; 99284; J1170; J2405

== ENCOUNTER → 2018-09-18 | Outpatient (CLI) | payer BC, OTHER ==
[~2018-09-18] MED LIST changes: +DICL1GEL3; +DULO1CAP5; +LIPA1CAP PO; +LIPA1CAP3 PO; +ONDA-227 PO; +TRAM50TA2; -ZENP1CAP PO; -ZOFR8TAB PO; -[UNRECOGNIZED DRUG - CODE] PO
--- NOTE | 2018-10-03 00:14 | ECWPNPC ---
PATIENT NAME: MEL BOURGEOIS : 1965 GENDER: FEMALE VISIT DATE: 09/18/2018 DISCHARGE DATE: 09/18/18 1406 VISIT LOCKED DATE TIME: PHYSICIAN: ZACK BOLAND PHYSICIAN PAGER NO: [phone] RESOURCE: ZACK BOLAND REASON FOR APPOINTMENT 1. MEDS HISTORY OF PRESENT ILLNESS HISTORY OF PRESENT ILLNESS: HERE FOR F/U OF CHRONIC ABDOMINAL PAIN .HAS HAD SEVERE INCREASE IN ABDOMINAL PAIN OVER TH PAST 2 MONTHS.HAS NOT BEEN ABLE TO TOLERATE TRAMADOL DUE TO STOMACH PAIN.DUE TO VOMITING AND UNCONTROLLED PAIN WE STARTED HER ON FENTANYL PATCH A FEW MONTHS AGO.TODAY SHE IS TELLING ME SHE HAS HAD FENTANYL PATCH OFF FOR 2 DAYS AND NOTICES NO CHANGE IN PAIN WITH OR WITHOUT IT.STATES SHE IS HAVING AN INCREASE IN ABDOMINAL PAIN OVER THE PAST MONTH.RATING PAIN VAS 4-7/10. PAIN THE PATIENT DESCRIBES THE PAIN... THE PATIENT DESCRIBES THE PAIN... THE PATIENT DESCRIBES THE PAIN... FALL RISK SCREENING: SCREENING :NO FALLS REPORTED IN THE LAST YEAR CURRENT MEDICATIONS TAKING CLARINEX-D 24 HOUR 5-240 MG TABLET EXTENDED RELEASE 24 HOUR ORALLY DAILY NEEDED TAKING COMPAZINE 25MG RECTAL SUPPOSITORY RECTALLY EVERY 12 HOURS NEEDED FOR INTRACTABLE NAUSEA/VOMITING TAKING CYMBALTA 30 MG CAPSULE DELAYED RELEASE PARTICLES 1 CAPSULE ORALLY ONCE A DAY TAKING DILAUDID 4 MG TABLET 1 TO 1 1/2 TAB ORALLY Q8H PRN MDD3 TAKING FENTANYL 50 MCG/HR PATCH 72 HOUR 1 PATCH TO SKIN TRANSDERMAL 1 PATCH Q 72 HOURS=MDD TAKING PSEUDOEPHEDRINE HCL 30 MG TABLET 1 - 2 TABLETS ORALLY EVERY 6 HOURS NEEDED FOR CONGESTION TAKING SCOPOLAMINE 1 MG/3DAYS PATCH 72 HOUR 1 PATCH TO SKIN NEEDED TRANSDERMAL 1 PATCH Q 3 DAYS TAKING VOLTAREN 1 % GEL APPLY 1 G TO EACH HAND TRANSDERMAL 4 TIMES A DAY TAKING ZANTAC 150 MG TABLET ONE HALF ORALLY DIRECTED NEEDED TAKING ZOFRAN 8 MG ODT 1 TABLET ORALLY EVERY 8 HOURS NEEDED FOR NAUSEA TAKING ZOFRAN ODT 4 MG TABLET DISINTEGRATING 1 TABLET ON THE TONGUE AND ALLOW TO DISSOLVE ORALLY EVERY 8 HRS NEEDED FOR N/V MEDICATION LIST REVIEWED AND RECONCILED WITH THE PATIENT PAST MEDICAL HISTORY OVERACTIVE BLADDER PSORIASIS IRRITABLE BOWEL SYNDROME H/O ENDOMETRIOSIS DEPRESSION FAMILIAL ESSENTIAL TREMORS DOES NOT DRINK - HOSPITAL RECORD IS INCORRECT (PROB AUTOIMMUNE) CHRONIC PANCREATITIS/PANCREATIC DUCT STRICTURES, S/P CBD AND PANCREATIC DUCT STENTS [id number]; 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, FOLLOWED UR CHRONIC ABD PAIN--SEES PAIN CLINIC IDENTIFIES TABATHA HAILE HCP HX ALOPECIA AREATA SCALP ALLERGIES PENICILLIN V POTASSIUM: EXACERBATES PSORIASIS - ALLERGY CODEINE SULFATE: VOMITING - SIDE EFFECTS CYMBALTA: DIZZINESS, LISTED TO THE LEFT - SIDE EFFECTS PHENERGAN: MADE HER ITCH ALL OVER - SIDE EFFECTS NUCYNTA: VOMITING - SIDE EFFECTS REGLAN: INCREASED ABD PAIN/CRAMPING - CONTRAINDICATION SURGICAL HISTORY LAPAROSCOPIC CHOLECYSTECTOMY 08/07/2012 TOTAL VAGINAL HYTERECTOMY, SPARED OVARIES 2000 ERCP WITH 2 STENTS 12/29/2015 ERCP WITH PANCREATIC STENT REPLACEMENT Q 2 MONTHS FAMILY HISTORY FATHER: 77 YRS, COPD MOTHER: , SUICIDE, MUNCHAUSSEN'S SYNDROME, DIAGNOSED WITH PSYCHIATRIC CONDITIONS MATERNAL AUNT: BREAST CA, CANCER 3 GREAT-AUNTS WITH PANCREATIC CA. SOCIAL HISTORY GENERAL: TOBACCO USE ARE YOU A:CURRENT SMOKER ARE YOU INTERESTED IN QUITTING?NOT READY TO QUIT COUNSELED THE PATIENT ON SMOKING EFFECTS, EDUCATION RICHOCYL10/24/2019 PATIENT COUNSELED ON THE DANGERS OF TOBACCO USE AND URGED TO QUIT:06/20/2018 PAIN CLINIC PFS, CLERGY, PUBLIC HEALTH REFERRALS PFS REFERRAL NEEDED?NO CLERGY REFERRAL NEEDED?NO PUBLIC HEALTH REFERRAL NEEDED?NO WAS THE PROVIDER NOTIFIED OF ANY PERTINENT INFO?YES HAS THE PATIENT BEEN EDUCATED REGARDING HIS/HER PLAN OF CARE?YES HAS THE PATIENT BEEN EDUCATED REGARDING PAIN, THE RISK FOR PAIN, THE IMPORTANCE OF EFFECTIVE PAIN MANAGEMENT, AND THE PAIN ASSESSMENT PROCESS?YES LATEX QUESTIONNAIRE LATEX ALLERGY : HAVE YOU EVER DEVELOPED ANY TYPE OF REACTION AFTER HANDLING LATEX PRODUCTS SUCH RUBBER GLOVES, CONDOMS, DIAPHRAGMS, BALLOONS, SOCKS, OR UNDERWEAR?NO LATEX ALLERGY : HAVE YOU EVER DEVELOPED ANY TYPE OF REACTION DURING OR AFTER DENTAL APPOINTMENT, VAGINAL/RECTAL EXAMINATION, SURGICAL PROCEDURE, OR ANY OTHER EXPOSURE?NO LATEX RISK : HAVE YOU EVER HAD ANY DIFFICULTY BREATHING OR HIVES AFTER EATING OR HANDLING ANY FRUITS, OR VEGETABLES; SUCH KIWI, BANANAS, STONE FRUITS, OR CHESTNUTSNO LATEX RISK : DO YOU HAVE A PREVIOUS PERSONAL HISTORY OF MORE THAN NINE SURGERIES, SPINA BIFIDA, OR REPEATED CATHERIZATIONS? NO LATEX RISK : ARE YOU FREQUENTLY EXPOSED TO LATEX PRODUCTS IN YOUR OCCUPATION?NO DATE ASKED : 06/20/2018 ADVANCE DIRECTIVE ADVANCE DIRECTIVE DISCUSSED WITH PATIENT:YES HCP - HUSSAIN HAILE CONFUCIANISM [id number] SHINTO LANGUAGE LANGUAGES SPOKEN:MACEDONIAN ALCOHOL SCREENING DID YOU HAVE A DRINK CONTAINING ALCOHOL IN THE PAST YEAR?NO POINTS0 INTERPRETATIONNEGATIVE RECREATIONAL DRUG USE DRUG USE?NO LEARNING BARRIERS / SPECIAL NEEDS CHANGE FROM LAST VISIT?NO BARRIERS TO LEARNING?NO HEARING IMPAIRED?NO VISION IMPAIRED?YES GLASSES FOR READING COGNITIVELY IMPAIRED?NO READINESS TO LEARN?YES LEARNING PREFERENCES?NO LEARNING CAPABILITIES PRESENT?YES EMOTIONAL BARRIERS?NO SPECIAL DEVICES?NO AGRICULTURAL CONSULTANT NEEDED?NO REVIEWED WITH PATIENT 03/08/18 1221 JSREVIEWED WITH PATIENT 09/18/18 1330 LAS. HOSPITALIZATION/MAJOR DIAGNOSTIC PROCEDURE LAPAROSCOPIES, FINALLY HYSTERECTOMY LAPAROSCOPIC CHOLECYSTECTOMY (SAME DAY) July, PANCREATITIS STENT TO PANCREAS 2016 REVIEW OF SYSTEMS REVIEWED BY: PROVIDER: ZACK ROTHMAN . CONSTITUTIONAL: ANY CHANGE IN YOUR MEDICAL CONDITION? NO . CHILLS NO . FEVER NO . INFECTION: DO YOU HAVE NEW INFECTIONS? NO . DO YOU HAVE HISTORY OF MRSA? NO . MUSCULOSKELETAL: ANY NEW PATTERNS OF PAIN OR NUMBNESS? NO . GASTROENTEROLOGY: ANY NEW CHANGE IN BOWEL CONTROL? NO . GENITOURINARY: ANY NEW CHANGE IN BLADDER CONTROL? NO . IS THERE A CHANCE YOU COULD BE ? NO . HEMATOLOGY/LYMPH: DO YOU TAKE ANY BLOOD THINNERS? (FOR EXAMPLE- COUMADIN, PLAVIX, AGGRENOX, PLATEL, PRADAXA, OR XARELTO) NO . WHEN WAS YOUR LAST DOSE? DATE: TIME: . NEUROLOGY: HAVE YOU FALLEN IN THE PAST 12 MONTHS? NO . ANY NEW EXTREMITY NUMBNESS OR WEAKNESS? NO . CARDIOLOGY: DO YOU HAVE A PACEMAKER OR DEFIBRILLATOR? NO . RESPIRATORY: HAVE YOU BEEN SICK IN THE PAST WEEK? NO . FEVER NO . FLU LIKE SYMPTOMS? NO . COUGH NO . INTEGUMENTARY: DO YOU HAVE ANY RASHES OR OPEN SORES? NO . ALLERGIC/IMMUNO: ARE YOU ALLERGIC TO IV DYE? NO . ANY NEW ALLERGIES? NO . PSYCHIATRIC: DO YOU HAVE THOUGHTS OF HURTING YOURSELF OR SOMEONE ELSE? NO . ARE YOU ABUSED, NEGLECTED, OR IN AN UNSAFE ENVIRONMENT? NO . ENDOCRINOLOGY: ARE YOU DIABETIC? NO . OTHER: DO YOU NEED ANY PRESCRIPTIONS? NO . IF YES, PLEASE LIST: ____ . ANY NEW PROBLEMS WITH YOUR MEDICATIONS? NO . WHEN DID YOU LAST EAT? ____ . WHEN DID YOU LAST DRINK? ____ . WHAT DID YOU LAST DRINK? ____ . NAME OF PERSON DRIVING YOU HOME? ____ . DO YOU HAVE ANY OTHER QUESTIONS OR CONCERNS NO . VITAL SIGNS WT 122 LBS, HT 63 IN, BMI 21.61 INDEX, BP 119/70 MM HG, HR 100 /MIN, RR 16 /MIN, TEMP 96.3 F, OXYGEN SAT % 96%, SAFE IN ENV? (Y/N) YES, NA INITIALS SC 13:30, REVIEWED BY: NEAL. EXAMINATION GENERAL EXAMINATION: GENERALAWAKE,ALERT ,PLEAASANT . PSYCHAFFECT NORMAL . LUNGS:LUNG RAMIREZ ARE CLEAR TO AUSCULTATION BILATERALLY. GOOD MOVEMENT OF AIR . HEART:S1, S2 IN A REGULAR RATE AND RHYTHM. NO SIGNIFICANT MURMURS, RUBS OR GALLOPS NOTED . ASSESSMENTS CHRONIC PANCREATITIS, UNSPECIFIED PANCREATITIS TYPE - K86.1 (PRIMARY) TREATMENT CHRONIC PANCREATITIS, UNSPECIFIED PANCREATITIS TYPE REFILL CYMBALTA CAPSULE DELAYED RELEASE PARTICLES, 30 MG, 1 CAPSULE, ORALLY, ONCE A DAY, 30 DAY(S), 30, REFILLS 2 REFILL DILAUDID TABLET, 4 MG, 1 TO 1 1/2 TAB, ORALLY, Q8H PRN MDD3, 30 DAY(S), 90, REFILLS 0 STOP FENTANYL PATCH 72 HOUR, 50 MCG/HR, 1 PATCH TO SKIN, TRANSDERMAL, 1 PATCH Q 72 HOURS=MDD START HYDROMORPHONE HCL ER TABLET ER 24 HOUR ABUSE-DETERRENT, 12 MG, 1 TABLET, ORALLY, ONCE A DAY FOR CHRONIC PAIN MDD1, 30 DAYS, 30, REFILLS 0 NOTES: ISTOP REGISTRY REVIEWED AND DEMONSTRATES COMPLLIANCE. (REF # [id number] ) BRINGS IN MEDICATIONS WHICH IS APPROPRIATE FOR WHAT WAS DISPENSED. RECENT URINE TOXICOLOGY REVIEWED. NO UNAUTHORIZED MEDICATIONS. NO ILLICIT SUBSTANCES AND PRESCRIBED MEDICATIONS WERE PRESENT. , RISKS AND BENEFITS OF NARCOTIC/OPIOD MEDICATIONS WERE REVIEWED WITH PATIENT - THIS INCLUDES BUT IS NOT LIMITED TO RISK OF DEPENDANCE/DEVELOPMENT OF ADDICTION, MOOD DISTURBANCE AND DEPRESSION, OSTEOPOROSIS, HORMONAL AND LABIDAL CHANGES, RESPIRATORY DEPRESSION AND . PATIENT IS ADVISED NOT TO DRIVE OR DRINK ALCOHOL WHILE ON THESE MEDICATIONS. PREVENTIVE MEDICINE PAIN CLINIC TEACHING: MEDICATIONS MEDICATION CHANGES REVIEWED WITH PATIENT, PATIENT VERBALIZES UNDERSTANDING. PROCEDURE CODES FA211 ESTABILISHED PATIENT [facility] CHARGE DISPOSITION & COMMUNICATION FOLLOW UP 6 WEEKS (REASON: MED MGMNT) ELECTRONICALLY SIGNED BY STEPHAN CALLE ON 10/02/2018 AT 02:59 PM EDT DISCLAIMER : THIS IS A VISIT SUMMARY EXTRACTED FROM THE [employer] CHART. IT IS NOT A COPY OF THE [employer] PROGRESS NOTE. KIMMY
== END ==
LOC: M PAIN 13:00
PROVIDERS: ATTEND Nurse Practitioner Family
DX: K86.1 Other chronic pancreatitis (principal); G89.29 Other chronic pain; Z86.59 Personal history of other mental and behavioral disorders; F17.210 Nicotine dependence, cigarettes, uncomplicated; Z88.0 Allergy status to penicillin; Z88.5 Allergy status to narcotic agent; Z88.8 Allergy status to other drugs, medicaments and biological substances; Z79.891 Long term (current) use of opiate analgesic; Z79.899 Other long term (current) drug therapy

== ENCOUNTER → 2018-11-05 | Outpatient (CLI) | payer BC, OTHER ==
--- NOTE | 2018-12-03 11:34 | ECWPNPC ---
PATIENT NAME: MEL BOURGEOIS : 1965 GENDER: FEMALE VISIT DATE: 11/05/2018 DISCHARGE DATE: 11/05/18 1455 VISIT LOCKED DATE TIME: PHYSICIAN: ZACK BOLAND PHYSICIAN PAGER NO: [phone] RESOURCE: ZACK BOLAND REASON FOR APPOINTMENT 1. MED MGMNT HISTORY OF PRESENT ILLNESS HISTORY OF PRESENT ILLNESS: HERE FOR F/U OF CHRONIC ABDOMINAL PAIN RELATED TO CHRONIC PANCREATITIS.HAVING SIGNIFICANT INCREASE IN ABDOMINAL PAIN OVER THE PAST MONTH.FINDING DILAUDID MINIMALLY EFFECTIVE AT TIMES.WAS SEEN IN [place] RECENTLY AND WAS TOLD THAT SHE COULDNT HAVE IT DRAINED YET.SHE IS WANTING A 2ND OPINION.RATING PAIN VAS 4-10/10. PAIN THE PATIENT DESCRIBES THE PAIN... FALL RISK SCREENING: SCREENING :NO FALLS REPORTED IN THE LAST YEAR CURRENT MEDICATIONS TAKING CLARINEX-D 24 HOUR 5-240 MG TABLET EXTENDED RELEASE 24 HOUR ORALLY DAILY NEEDED TAKING COMPAZINE 25MG RECTAL SUPPOSITORY RECTALLY EVERY 12 HOURS NEEDED FOR INTRACTABLE NAUSEA/VOMITING TAKING PSEUDOEPHEDRINE HCL 30 MG TABLET 1 - 2 TABLETS ORALLY EVERY 6 HOURS NEEDED FOR CONGESTION TAKING VOLTAREN 1 % GEL APPLY 1 G TO EACH HAND TRANSDERMAL 4 TIMES A DAY TAKING ZANTAC 150 MG TABLET ONE HALF ORALLY DIRECTED NEEDED TAKING CYMBALTA 30 MG CAPSULE DELAYED RELEASE PARTICLES 1 CAPSULE ORALLY ONCE A DAY TAKING SCOPOLAMINE 1 MG/3DAYS PATCH 72 HOUR 1 PATCH TO SKIN NEEDED TRANSDERMAL 1 PATCH Q 3 DAYS TAKING DILAUDID 4 MG TABLET 1 TO 1 1/2 TAB ORALLY Q8H PRN MDD3 TAKING ZOFRAN ODT 4 MG TABLET DISINTEGRATING 1 TABLET ON THE TONGUE AND ALLOW TO DISSOLVE ORALLY EVERY 8 HRS NEEDED FOR N/V TAKING ZOFRAN 8 MG ODT 1 TABLET ORALLY EVERY 8 HOURS NEEDED FOR NAUSEA TAKING HYDROMORPHONE HCL ER 12 MG TABLET ER 24 HOUR ABUSE-DETERRENT 1 TABLET ORALLY ONCE A DAY FOR CHRONIC PAIN MDD1 MEDICATION LIST REVIEWED AND RECONCILED WITH THE PATIENT PAST MEDICAL HISTORY OVERACTIVE BLADDER PSORIASIS IRRITABLE BOWEL SYNDROME H/O ENDOMETRIOSIS DEPRESSION FAMILIAL ESSENTIAL TREMORS DOES NOT DRINK - HOSPITAL RECORD IS INCORRECT (PROB AUTOIMMUNE) CHRONIC PANCREATITIS/PANCREATIC DUCT STRICTURES, S/P CBD AND PANCREATIC DUCT STENTS [id number]; 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, FOLLOWED UR CHRONIC ABD PAIN--SEES PAIN CLINIC IDENTIFIES TABATHA HAILE HCP HX ALOPECIA AREATA SCALP ALLERGIES PENICILLIN V POTASSIUM: EXACERBATES PSORIASIS - ALLERGY CODEINE SULFATE: VOMITING - SIDE EFFECTS CYMBALTA: DIZZINESS, LISTED TO THE LEFT - SIDE EFFECTS PHENERGAN: MADE HER ITCH ALL OVER - SIDE EFFECTS NUCYNTA: VOMITING - SIDE EFFECTS REGLAN: INCREASED ABD PAIN/CRAMPING - CONTRAINDICATION SURGICAL HISTORY LAPAROSCOPIC CHOLECYSTECTOMY 08/07/2012 TOTAL VAGINAL HYTERECTOMY, SPARED OVARIES 2000 ERCP WITH 2 STENTS 12/29/2015 ERCP WITH PANCREATIC STENT REPLACEMENT Q 2 MONTHS FAMILY HISTORY FATHER: 77 YRS, COPD MOTHER: , SUICIDE, MUNCHAUSSEN'S SYNDROME, DIAGNOSED WITH UNSPECIFIED NONPSYCHOTIC MENTAL DISORDER FOLLOWING ORGANIC BRAIN DAMAGE MATERNAL AUNT: BREAST CA, OTHER MALIGNANT NEOPLASM OF UNSPECIFIED SITE 3 GREAT-AUNTS WITH PANCREATIC CA. SOCIAL HISTORY GENERAL: TOBACCO USE ARE YOU A:CURRENT SMOKER ARE YOU INTERESTED IN QUITTING?NOT READY TO QUIT COUNSELED THE PATIENT ON SMOKING EFFECTS, EDUCATION [id number]/24/2019 PATIENT COUNSELED ON THE DANGERS OF TOBACCO USE AND URGED TO QUIT:11/05/2018 PAIN CLINIC PFS, CLERGY, PUBLIC HEALTH REFERRALS PFS REFERRAL NEEDED?NO CLERGY REFERRAL NEEDED?NO PUBLIC HEALTH REFERRAL NEEDED?NO WAS THE PROVIDER NOTIFIED OF ANY PERTINENT INFO?YES HAS THE PATIENT BEEN EDUCATED REGARDING HIS/HER PLAN OF CARE?YES HAS THE PATIENT BEEN EDUCATED REGARDING PAIN, THE RISK FOR PAIN, THE IMPORTANCE OF EFFECTIVE PAIN MANAGEMENT, AND THE PAIN ASSESSMENT PROCESS?YES LATEX QUESTIONNAIRE LATEX ALLERGY : HAVE YOU EVER DEVELOPED ANY TYPE OF REACTION AFTER HANDLING LATEX PRODUCTS SUCH RUBBER GLOVES, CONDOMS, DIAPHRAGMS, BALLOONS, SOCKS, OR UNDERWEAR?NO LATEX ALLERGY : HAVE YOU EVER DEVELOPED ANY TYPE OF REACTION DURING OR AFTER DENTAL APPOINTMENT, VAGINAL/RECTAL EXAMINATION, SURGICAL PROCEDURE, OR ANY OTHER EXPOSURE?NO DATE ASKED : 06/20/2018 LATEX RISK : HAVE YOU EVER HAD ANY DIFFICULTY BREATHING OR HIVES AFTER EATING OR HANDLING ANY FRUITS, OR VEGETABLES; SUCH KIWI, BANANAS, STONE FRUITS, OR CHESTNUTSNO LATEX RISK : DO YOU HAVE A PREVIOUS PERSONAL HISTORY OF MORE THAN NINE SURGERIES, SPINA BIFIDA, OR REPEATED CATHERIZATIONS? NO LATEX RISK : ARE YOU FREQUENTLY EXPOSED TO LATEX PRODUCTS IN YOUR OCCUPATION?NO ADVANCE DIRECTIVE ADVANCE DIRECTIVE DISCUSSED WITH PATIENT:YES HCP - HUSSAIN HAILE RASTAFARIAN [id number] [employer]TH[employer]OX LANGUAGE LANGUAGES SPOKEN:FINNISH ALCOHOL SCREENING DID YOU HAVE A DRINK CONTAINING ALCOHOL IN THE PAST YEAR?NO POINTS0 INTERPRETATIONNEGATIVE RECREATIONAL DRUG USE DRUG USE?NO LEARNING BARRIERS / SPECIAL NEEDS CHANGE FROM LAST VISIT?NO BARRIERS TO LEARNING?NO HEARING IMPAIRED?NO VISION IMPAIRED?YES GLASSES FOR READING COGNITIVELY IMPAIRED?NO READINESS TO LEARN?YES LEARNING PREFERENCES?NO LEARNING CAPABILITIES PRESENT?YES EMOTIONAL BARRIERS?NO SPECIAL DEVICES?NO DEV TECHNICAL MGR NEEDED?NO REVIEWED WITH PATIENT 03/08/18 1221 JSREVIEWED WITH PATIENT 09/18/18 1330 LASREVIEWWED WITH PT 11/05/18 1417 NLJ. HOSPITALIZATION/MAJOR DIAGNOSTIC PROCEDURE LAPAROSCOPIES, FINALLY HYSTERECTOMY LAPAROSCOPIC CHOLECYSTECTOMY (SAME DAY) July, PANCREATITIS STENT TO PANCREAS 2016 REVIEW OF SYSTEMS REVIEWED BY: PROVIDER: ZACK ROTHMAN . CONSTITUTIONAL: ANY CHANGE IN YOUR MEDICAL CONDITION? NO . CHILLS NO . FEVER NO . INFECTION: DO YOU HAVE NEW INFECTIONS? NO . DO YOU HAVE HISTORY OF MRSA? NO . MUSCULOSKELETAL: ANY NEW PATTERNS OF PAIN OR NUMBNESS? YES- STATES THAT SHE HAS INCREASED PAIN IN CHEST TO UPPER ABD AND RADIATING AROUND TO HER SIDES . GASTROENTEROLOGY: ANY NEW CHANGE IN BOWEL CONTROL? NO . GENITOURINARY: ANY NEW CHANGE IN BLADDER CONTROL? NO . IS THERE A CHANCE YOU COULD BE ? NO . HEMATOLOGY/LYMPH: DO YOU TAKE ANY BLOOD THINNERS? (FOR EXAMPLE- COUMADIN, PLAVIX, AGGRENOX, PLATEL, PRADAXA, OR XARELTO) NO . WHEN WAS YOUR LAST DOSE? DATE: TIME: . NEUROLOGY: HAVE YOU FALLEN IN THE PAST 12 MONTHS? NO . ANY NEW EXTREMITY NUMBNESS OR WEAKNESS? NO . CARDIOLOGY: DO YOU HAVE A PACEMAKER OR DEFIBRILLATOR? NO . RESPIRATORY: HAVE YOU BEEN SICK IN THE PAST WEEK? NO . FEVER NO . FLU LIKE SYMPTOMS? NO . COUGH NO . INTEGUMENTARY: DO YOU HAVE ANY RASHES OR OPEN SORES? NO . ALLERGIC/IMMUNO: ARE YOU ALLERGIC TO IV DYE? NO . ANY NEW ALLERGIES? NO . PSYCHIATRIC: DO YOU HAVE THOUGHTS OF HURTING YOURSELF OR SOMEONE ELSE? NO . ARE YOU ABUSED, NEGLECTED, OR IN AN UNSAFE ENVIRONMENT? NO . ENDOCRINOLOGY: ARE YOU DIABETIC? NO . OTHER: DO YOU NEED ANY PRESCRIPTIONS? YES . IF YES, PLEASE LIST: ____DILAUDID . ANY NEW PROBLEMS WITH YOUR MEDICATIONS? NO . WHEN DID YOU LAST EAT? ____ . WHEN DID YOU LAST DRINK? ____ . WHAT DID YOU LAST DRINK? ____ . NAME OF PERSON DRIVING YOU HOME? ____ . DO YOU HAVE ANY OTHER QUESTIONS OR CONCERNS YES- STATES SHE HAS HAD INCREASED PAIN IN HER CHEST DOWN TO HER ABD THAT IS RADIATING AROUND TO HER SIDES . VITAL SIGNS WT 125.8 LBS, HT 63 IN, BMI 22.28 INDEX, BP 138/88 MM HG, HR 117 /MIN, RR 16 /MIN, TEMP 96.9 F, OXYGEN SAT % 97%, SAFE IN ENV? (Y/N) YES, NA INITIALS SC 14:16, REVIEWED BY: JUAN DAVID. EXAMINATION GENERAL EXAMINATION: GENERALAWAKE,ALERT ,PLEAASANT . PSYCHAFFECT NORMAL . LUNGS:LUNG RAMIREZ ARE CLEAR TO AUSCULTATION BILATERALLY. GOOD MOVEMENT OF AIR . HEART:S1, S2 IN A REGULAR RATE AND RHYTHM. NO SIGNIFICANT MURMURS, RUBS OR GALLOPS NOTED . ASSESSMENTS CHRONIC PANCREATITIS, UNSPECIFIED PANCREATITIS TYPE - K86.1 (PRIMARY) TREATMENT CHRONIC PANCREATITIS, UNSPECIFIED PANCREATITIS TYPE REFILL DILAUDID TABLET, 4 MG, 1 TO 1 1/2 TAB, ORALLY, Q8H PRN MDD3, 30 DAY(S), 90, REFILLS 0 REFILL HYDROMORPHONE HCL ER TABLET ER 24 HOUR ABUSE-DETERRENT, 16 MG, 1 TABLET, ORALLY, ONCE A DAY FOR CHRONIC PAIN MDD1, 30 DAYS, 30, REFILLS 0 START DILAUDID TABLET, 8 MG, DIRECTED, ORALLY, 1 Q8H PRN MDD3, 30 DAYS, 90, REFILLS 0 NOTES: CANCEL DILAUDID 4 MG-START DILAUDID 8MG Q8H PRN MDD3 #90 FOR 30 DAYS, ISTOP REGISTRY REVIEWED AND DEMONSTRATES COMPLLIANCE. BRINGS IN MEDICATIONS WHICH IS APPROPRIATE FOR WHAT WAS DISPENSED. RECENT URINE TOXICOLOGY REVIEWED. NO UNAUTHORIZED MEDICATIONS. NO ILLICIT SUBSTANCES AND PRESCRIBED MEDICATIONS WERE PRESENT. , RISKS AND BENEFITS OF NARCOTIC/OPIOD MEDICATIONS WERE REVIEWED WITH PATIENT - THIS INCLUDES BUT IS NOT LIMITED TO RISK OF DEPENDANCE/DEVELOPMENT OF ADDICTION, MOOD DISTURBANCE AND DEPRESSION, OSTEOPOROSIS, HORMONAL AND LABIDAL CHANGES, RESPIRATORY DEPRESSION AND . PATIENT IS ADVISED NOT TO DRIVE OR DRINK ALCOHOL WHILE ON THESE MEDICATIONS. PROCEDURE CODES FA211 ESTABILISHED PATIENT [facility] CHARGE DISPOSITION & COMMUNICATION FOLLOW UP 6 WEEKS (REASON: MED MGMNT) ELECTRONICALLY SIGNED BY STEPHAN CALLE ON 11/21/2018 AT 10:29 AM EDT DISCLAIMER : THIS IS A VISIT SUMMARY EXTRACTED FROM THE [employer] CHART. IT IS NOT A COPY OF THE [employer] PROGRESS NOTE. KIMMY
== END ==
LOC: M PAIN 13:45
PROVIDERS: ATTEND Anesthesiology
DX: K86.1 Other chronic pancreatitis (principal); G89.29 Other chronic pain; Z86.59 Personal history of other mental and behavioral disorders; G25.0 Essential tremor; F17.210 Nicotine dependence, cigarettes, uncomplicated; Z88.0 Allergy status to penicillin; Z88.5 Allergy status to narcotic agent; Z88.8 Allergy status to other drugs, medicaments and biological substances; Z79.891 Long term (current) use of opiate analgesic; Z79.899 Other long term (current) drug therapy

== ENCOUNTER → 2019-01-02 | Outpatient (CLI) | payer BC, OTHER ==
--- NOTE | 2019-01-23 02:45 | ECWPNPC ---
PATIENT NAME: MEL BOURGEIOS : 1965 GENDER: FEMALE VISIT DATE: 01/02/2019 DISCHARGE DATE: 01/02/19 1442 VISIT LOCKED DATE TIME: PHYSICIAN: ZACK BOLAND PHYSICIAN PAGER NO: [phone] RESOURCE: ZACK BOLAND REASON FOR APPOINTMENT 1. MED MGMNT HISTORY OF PRESENT ILLNESS HISTORY OF PRESENT ILLNESS: HERE FOR F/U OF CHRONIC ABDOMINAL PAIN RELATED TO CHRONIC PANCREATITIS.HAS BEEN EXPERIENCING SIGNIFICANT INCREASE IN ABDOMINAL PAIN OVER THE PAST FEW MONTHS.FINDING DILAUDID INCREASE HAS MADE A BIG DIFFERENCE AND ONLY NEEDING 1 DILAUDID 8MG DAILY PRN.WAITING FOR SEVERE EXACERBATION IN PAIN AND SHE WILL BE EVALUATED AT THAT TIME AT [facility] IN [place].RATING PAIN VAS 4-10/10.REPORTING AN INCREASE IN NEUROPATHIC PAIN LATELY.DISCUSSED AN INCREASE IN CYMBALTA. PAIN THE PATIENT DESCRIBES THE PAIN... THE PATIENT DESCRIBES THE PAIN... FALL RISK SCREENING: SCREENING :NO FALLS REPORTED IN THE LAST YEAR CURRENT MEDICATIONS TAKING CLARINEX-D 24 HOUR 5-240 MG TABLET EXTENDED RELEASE 24 HOUR ORALLY DAILY NEEDED TAKING COMPAZINE 25MG RECTAL SUPPOSITORY RECTALLY EVERY 12 HOURS NEEDED FOR INTRACTABLE NAUSEA/VOMITING TAKING PSEUDOEPHEDRINE HCL 30 MG TABLET 1 - 2 TABLETS ORALLY EVERY 6 HOURS NEEDED FOR CONGESTION TAKING VOLTAREN 1 % GEL APPLY 1 G TO EACH HAND TRANSDERMAL 4 TIMES A DAY TAKING ZANTAC 150 MG TABLET ONE HALF ORALLY DIRECTED NEEDED TAKING CYMBALTA 30 MG CAPSULE DELAYED RELEASE PARTICLES 1 CAPSULE ORALLY ONCE A DAY TAKING SCOPOLAMINE 1 MG/3DAYS PATCH 72 HOUR 1 PATCH TO SKIN NEEDED TRANSDERMAL 1 PATCH Q 3 DAYS TAKING ZOFRAN ODT 4 MG TABLET DISINTEGRATING 1 TABLET ON THE TONGUE AND ALLOW TO DISSOLVE ORALLY EVERY 8 HRS NEEDED FOR N/V TAKING ZOFRAN 8 MG ODT 1 TABLET ORALLY EVERY 8 HOURS NEEDED FOR NAUSEA TAKING HYDROMORPHONE HCL ER 16 MG TABLET ER 24 HOUR ABUSE-DETERRENT 1 TABLET ORALLY ONCE A DAY FOR CHRONIC PAIN MDD1 TAKING DILAUDID 8 MG TABLET DIRECTED ORALLY 1 Q8H PRN MDD3 NOT-TAKING DILAUDID 4 MG TABLET 1 TO 1 1/2 TAB ORALLY Q8H PRN MDD3 MEDICATION LIST REVIEWED AND RECONCILED WITH THE PATIENT PAST MEDICAL HISTORY OVERACTIVE BLADDER PSORIASIS IRRITABLE BOWEL SYNDROME H/O ENDOMETRIOSIS DEPRESSION FAMILIAL ESSENTIAL TREMORS DOES NOT DRINK - HOSPITAL RECORD IS INCORRECT (PROB AUTOIMMUNE) CHRONIC PANCREATITIS/PANCREATIC DUCT STRICTURES, S/P CBD AND PANCREATIC DUCT STENTS [id number]; 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, FOLLOWED UR CHRONIC ABD PAIN--SEES PAIN CLINIC IDENTIFIES TABATHA HAILE HCP HX ALOPECIA AREATA SCALP ALLERGIES PENICILLIN V POTASSIUM: EXACERBATES PSORIASIS - ALLERGY CODEINE SULFATE: VOMITING - SIDE EFFECTS CYMBALTA: DIZZINESS, LISTED TO THE LEFT - SIDE EFFECTS PHENERGAN: MADE HER ITCH ALL OVER - SIDE EFFECTS NUCYNTA: VOMITING - SIDE EFFECTS REGLAN: INCREASED ABD PAIN/CRAMPING - CONTRAINDICATION SURGICAL HISTORY LAPAROSCOPIC CHOLECYSTECTOMY 08/07/2012 TOTAL VAGINAL HYTERECTOMY, SPARED OVARIES 2000 ERCP WITH 2 STENTS 12/29/2015 ERCP WITH PANCREATIC STENT REPLACEMENT Q 2 MONTHS FAMILY HISTORY FATHER: 77 YRS, COPD MOTHER: , SUICIDE, MUNCHAUSSEN'S SYNDROME, DIAGNOSED WITH UNSPECIFIED NONPSYCHOTIC MENTAL DISORDER FOLLOWING ORGANIC BRAIN DAMAGE MATERNAL AUNT: BREAST CA, OTHER MALIGNANT NEOPLASM OF UNSPECIFIED SITE 3 GREAT-AUNTS WITH PANCREATIC CA. SOCIAL HISTORY GENERAL: TOBACCO USE ARE YOU A:CURRENT SMOKER ARE YOU INTERESTED IN QUITTING?NOT READY TO QUIT COUNSELED THE PATIENT ON SMOKING EFFECTS, EDUCATION [id number]/20/2019 PATIENT COUNSELED ON THE DANGERS OF TOBACCO USE AND URGED TO QUIT:01/02/2019 PAIN CLINIC PFS, CLERGY, PUBLIC HEALTH REFERRALS PFS REFERRAL NEEDED?NO CLERGY REFERRAL NEEDED?NO PUBLIC HEALTH REFERRAL NEEDED?NO WAS THE PROVIDER NOTIFIED OF ANY PERTINENT INFO?YES HAS THE PATIENT BEEN EDUCATED REGARDING HIS/HER PLAN OF CARE?YES HAS THE PATIENT BEEN EDUCATED REGARDING PAIN, THE RISK FOR PAIN, THE IMPORTANCE OF EFFECTIVE PAIN MANAGEMENT, AND THE PAIN ASSESSMENT PROCESS?YES LATEX QUESTIONNAIRE LATEX ALLERGY : HAVE YOU EVER DEVELOPED ANY TYPE OF REACTION AFTER HANDLING LATEX PRODUCTS SUCH RUBBER GLOVES, CONDOMS, DIAPHRAGMS, BALLOONS, SOCKS, OR UNDERWEAR?NO LATEX ALLERGY : HAVE YOU EVER DEVELOPED ANY TYPE OF REACTION DURING OR AFTER DENTAL APPOINTMENT, VAGINAL/RECTAL EXAMINATION, SURGICAL PROCEDURE, OR ANY OTHER EXPOSURE?NO LATEX RISK : HAVE YOU EVER HAD ANY DIFFICULTY BREATHING OR HIVES AFTER EATING OR HANDLING ANY FRUITS, OR VEGETABLES; SUCH KIWI, BANANAS, STONE FRUITS, OR CHESTNUTSNO LATEX RISK : DO YOU HAVE A PREVIOUS PERSONAL HISTORY OF MORE THAN NINE SURGERIES, SPINA BIFIDA, OR REPEATED CATHERIZATIONS? NO LATEX RISK : ARE YOU FREQUENTLY EXPOSED TO LATEX PRODUCTS IN YOUR OCCUPATION?NO DATE ASKED : 06/20/2018 ADVANCE DIRECTIVE ADVANCE DIRECTIVE DISCUSSED WITH PATIENT:YES HCP - HUSSAIN HAILE HINDU [id number] [employer] LANGUAGE LANGUAGES SPOKEN:[place] ALCOHOL SCREENING DID YOU HAVE A DRINK CONTAINING ALCOHOL IN THE PAST YEAR?NO POINTS0 INTERPRETATIONNEGATIVE RECREATIONAL DRUG USE DRUG USE?NO LEARNING BARRIERS / SPECIAL NEEDS CHANGE FROM LAST VISIT?NO BARRIERS TO LEARNING?NO HEARING IMPAIRED?NO VISION IMPAIRED?YES GLASSES FOR READING COGNITIVELY IMPAIRED?NO READINESS TO LEARN?YES LEARNING PREFERENCES?NO LEARNING CAPABILITIES PRESENT?YES EMOTIONAL BARRIERS?NO SPECIAL DEVICES?NO LEACH RUNNER NEEDED?NO REVIEWED WITH PATIENT 03/08/18 1221 JSREVIEWED WITH PATIENT 09/18/18 1330 LASREVIEWWED WITH PT 11/05/18 1417 NLJREVIEWED WITH PATIENT 01/02/19 1408 JS. HOSPITALIZATION/MAJOR DIAGNOSTIC PROCEDURE LAPAROSCOPIES, FINALLY HYSTERECTOMY LAPAROSCOPIC CHOLECYSTECTOMY (SAME DAY) July, PANCREATITIS STENT TO PANCREAS 2016 REVIEW OF SYSTEMS REVIEWED BY: PROVIDER: ZACK ROTHMAN . CONSTITUTIONAL: ANY CHANGE IN YOUR MEDICAL CONDITION? NO . CHILLS NO . FEVER NO . INFECTION: DO YOU HAVE NEW INFECTIONS? NO . DO YOU HAVE HISTORY OF MRSA? NO . MUSCULOSKELETAL: ANY NEW PATTERNS OF PAIN OR NUMBNESS? NO . GASTROENTEROLOGY: ANY NEW CHANGE IN BOWEL CONTROL? NO . GENITOURINARY: ANY NEW CHANGE IN BLADDER CONTROL? NO . IS THERE A CHANCE YOU COULD BE ? NO . HEMATOLOGY/LYMPH: DO YOU TAKE ANY BLOOD THINNERS? (FOR EXAMPLE- COUMADIN, PLAVIX, AGGRENOX, PLATEL, PRADAXA, OR XARELTO) NO . WHEN WAS YOUR LAST DOSE? DATE: TIME: . NEUROLOGY: HAVE YOU FALLEN IN THE PAST 12 MONTHS? NO . ANY NEW EXTREMITY NUMBNESS OR WEAKNESS? NO . CARDIOLOGY: DO YOU HAVE A PACEMAKER OR DEFIBRILLATOR? NO . RESPIRATORY: HAVE YOU BEEN SICK IN THE PAST WEEK? NO . FEVER NO . FLU LIKE SYMPTOMS? NO . COUGH NO . INTEGUMENTARY: DO YOU HAVE ANY RASHES OR OPEN SORES? NO . ALLERGIC/IMMUNO: ARE YOU ALLERGIC TO IV DYE? NO . ANY NEW ALLERGIES? NO . PSYCHIATRIC: DO YOU HAVE THOUGHTS OF HURTING YOURSELF OR SOMEONE ELSE? NO . ARE YOU ABUSED, NEGLECTED, OR IN AN UNSAFE ENVIRONMENT? NO . ENDOCRINOLOGY: ARE YOU DIABETIC? NO . OTHER: DO YOU NEED ANY PRESCRIPTIONS? YES . IF YES, PLEASE LIST: ____CYMBALTA, DILAUDID . ANY NEW PROBLEMS WITH YOUR MEDICATIONS? NO . WHEN DID YOU LAST EAT? ____ . WHEN DID YOU LAST DRINK? ____ . WHAT DID YOU LAST DRINK? ____ . NAME OF PERSON DRIVING YOU HOME? ____ . DO YOU HAVE ANY OTHER QUESTIONS OR CONCERNS FLU VACCINE 01/13/19 . VITAL SIGNS WT 127.8 LBS, HT 63 IN, BMI 22.64 INDEX, BP 140/81 MM HG, HR 105 /MIN, RR 16 /MIN, TEMP 96.8 F, OXYGEN SAT % 97%, SAFE IN ENV? (Y/N) YES, REVIEWED BY: JOEL. EXAMINATION GENERAL EXAMINATION: GENERALAWAKE,ALERT ,PLEAASANT . PSYCHAFFECT NORMAL . LUNGS:LUNG RAMIREZ ARE CLEAR TO AUSCULTATION BILATERALLY. GOOD MOVEMENT OF AIR . HEART:S1, S2 IN A REGULAR RATE AND RHYTHM. NO SIGNIFICANT MURMURS, RUBS OR GALLOPS NOTED . ASSESSMENTS CHRONIC PANCREATITIS, UNSPECIFIED PANCREATITIS TYPE - K86.1 (PRIMARY) TREATMENT CHRONIC PANCREATITIS, UNSPECIFIED PANCREATITIS TYPE INCREASE CYMBALTA CAPSULE DELAYED RELEASE PARTICLES, 60 MG, 1 CAPSULE, ORALLY, ONCE A DAY, 30 DAY(S), 30, REFILLS 2 REFILL HYDROMORPHONE HCL ER TABLET ER 24 HOUR ABUSE-DETERRENT, 16 MG, 1 TABLET, ORALLY, ONCE A DAY FOR CHRONIC PAIN MDD1, 30 DAYS, 30, REFILLS 0 REFILL DILAUDID TABLET, 8 MG, DIRECTED, ORALLY, 1 Q8H PRN MDD3, 30 DAYS, 90, REFILLS 0 NOTES: ISTOP REGISTRY REVIEWED AND DEMONSTRATES COMPLLIANCE. BRINGS IN MEDICATIONS WHICH IS APPROPRIATE FOR WHAT WAS DISPENSED. RECENT URINE TOXICOLOGY REVIEWED. NO UNAUTHORIZED MEDICATIONS. NO ILLICIT SUBSTANCES AND PRESCRIBED MEDICATIONS WERE PRESENT. URINE TOX TODAY, RISKS OF NARCOTIC/OPIOD MEDICATIONS INCLUDES BUT IS NOT LIMITED TO RISK OF DEPENDANCE/DEVELOPMENT OF ADDICTION, MOOD DISTURBANCE AND DEPRESSION, OSTEOPOROSIS, HORMONAL AND LABIDAL CHANGES, RESPIRATORY DEPRESSION AND . PATIENT IS ADVISED NOT TO DRIVE OR DRINK ALCOHOL WHILE ON THESE MEDICATIONS. PROCEDURE CODES FA211 ESTABILISHED PATIENT [facility] CHARGE DISPOSITION & COMMUNICATION FOLLOW UP 3 MONTHS (REASON: PANCREATITIS-CHRONIC) ELECTRONICALLY SIGNED BY ZACK ROTHMAN, STEPHAN ON 01/22/2019 AT 08:47 AM EST DISCLAIMER : THIS IS A VISIT SUMMARY EXTRACTED FROM THE [employer] CHART. IT IS NOT A COPY OF THE [employer] PROGRESS NOTE. KIMMY
== END ==
LOC: M PAIN 13:45
PROVIDERS: ATTEND Nurse Practitioner Family
DX: K86.1 Other chronic pancreatitis (principal); G89.29 Other chronic pain; Z86.59 Personal history of other mental and behavioral disorders; F17.210 Nicotine dependence, cigarettes, uncomplicated; Z88.0 Allergy status to penicillin; Z88.5 Allergy status to narcotic agent; Z88.8 Allergy status to other drugs, medicaments and biological substances; Z79.891 Long term (current) use of opiate analgesic; Z79.899 Other long term (current) drug therapy

== ENCOUNTER → 2019-04-04 | Outpatient (CLI) | payer BC, OTHER ==
--- NOTE | 2019-04-23 05:10 | ECWPNPC ---
PATIENT NAME: MEL BOURGEOIS : 1965 GENDER: FEMALE VISIT DATE: 04/04/2019 DISCHARGE DATE: 04/04/19 154 VISIT LOCKED DATE TIME: PHYSICIAN: ZACK BOLAND PHYSICIAN PAGER NO: [phone] RESOURCE: ZACK BOLAND REASON FOR APPOINTMENT 1. PANCREATITIS-CHRONIC HISTORY OF PRESENT ILLNESS HISTORY OF PRESENT ILLNESS: HERE FOR FOLLOW-UP OF CHRONIC ABDOMINAL PAIN ASSOCIATED WITH CHRONIC PANCREATITIS. WAS STARTED ON LONG-ACTING HYDROMORPHONE AT LAST VISIT AND FINDING HER PAIN MUCH BETTER CONTROLLED. USING DILAUDID PERIODICALLY FOR SEVERE PAIN EPISODES WITH GOOD EFFECT. CURRENTLY USING DILAUDID 8MG. DISCUSSED CUTTING THIS IN HALF AND USING 4 MG PERIODICALLY FOR SEVERE PAIN EPISODES. OUR GOAL WOULD BE TO REDUCE AND DISCONTINUE SHORT ACTING PAIN MEDICATION AND OPTIMIZING LONG-ACTING PAIN MEDICATION. RATING PAIN LEVEL A 4-5/10 VAS. PAIN THE PATIENT DESCRIBES THE PAIN... FALL RISK SCREENING: SCREENING :NO FALLS REPORTED IN THE LAST YEAR CURRENT MEDICATIONS TAKING CLARINEX-D 24 HOUR 5-240 MG TABLET EXTENDED RELEASE 24 HOUR ORALLY DAILY NEEDED TAKING COMPAZINE 25MG RECTAL SUPPOSITORY RECTALLY EVERY 12 HOURS NEEDED FOR INTRACTABLE NAUSEA/VOMITING TAKING PSEUDOEPHEDRINE HCL 30 MG TABLET 1 - 2 TABLETS ORALLY EVERY 6 HOURS NEEDED FOR CONGESTION TAKING VOLTAREN 1 % GEL APPLY 1 G TO EACH HAND TRANSDERMAL 4 TIMES A DAY TAKING ZANTAC 150 MG TABLET ONE HALF ORALLY DIRECTED NEEDED TAKING SCOPOLAMINE 1 MG/3DAYS PATCH 72 HOUR 1 PATCH TO SKIN NEEDED TRANSDERMAL 1 PATCH Q 3 DAYS TAKING ZOFRAN 8 MG ODT 1 TABLET ORALLY EVERY 8 HOURS NEEDED FOR NAUSEA TAKING CYMBALTA 60 MG CAPSULE DELAYED RELEASE PARTICLES 1 CAPSULE ORALLY ONCE A DAY TAKING ZOFRAN ODT 4 MG TABLET DISINTEGRATING 1 TABLET ON THE TONGUE AND ALLOW TO DISSOLVE ORALLY EVERY 8 HRS NEEDED FOR N/V TAKING DILAUDID 8 MG TABLET DIRECTED ORALLY 1 Q8H PRN MDD3 TAKING HYDROMORPHONE HCL ER 16 MG TABLET ER 24 HOUR ABUSE-DETERRENT 1 TABLET ORALLY ONCE A DAY FOR CHRONIC PAIN MDD1 NOT-TAKING DILAUDID 4 MG TABLET 1 TO 1 1/2 TAB ORALLY Q8H PRN MDD3 MEDICATION LIST REVIEWED AND RECONCILED WITH THE PATIENT PAST MEDICAL HISTORY OVERACTIVE BLADDER PSORIASIS IRRITABLE BOWEL SYNDROME H/O ENDOMETRIOSIS DEPRESSION FAMILIAL ESSENTIAL TREMORS DOES NOT DRINK - HOSPITAL RECORD IS INCORRECT (PROB AUTOIMMUNE) CHRONIC PANCREATITIS/PANCREATIC DUCT STRICTURES, S/P CBD AND PANCREATIC DUCT STENTS [id number]; 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, FOLLOWED UR CHRONIC ABD PAIN--SEES PAIN CLINIC IDENTIFIES TABATHA HAILE HCP HX ALOPECIA AREATA SCALP ALLERGIES PENICILLIN V POTASSIUM: EXACERBATES PSORIASIS - ALLERGY CODEINE SULFATE: VOMITING - SIDE EFFECTS CYMBALTA: DIZZINESS, LISTED TO THE LEFT - SIDE EFFECTS PHENERGAN: MADE HER ITCH ALL OVER - SIDE EFFECTS NUCYNTA: VOMITING - SIDE EFFECTS REGLAN: INCREASED ABD PAIN/CRAMPING - CONTRAINDICATION SURGICAL HISTORY LAPAROSCOPIC CHOLECYSTECTOMY 08/07/2012 TOTAL VAGINAL HYTERECTOMY, SPARED OVARIES 2000 ERCP WITH 2 STENTS 12/29/2015 ERCP WITH PANCREATIC STENT REPLACEMENT Q 2 MONTHS FAMILY HISTORY FATHER: 77 YRS, COPD MOTHER: , SUICIDE, MUNCHAUSSEN'S SYNDROME, DIAGNOSED WITH UNSPECIFIED NONPSYCHOTIC MENTAL DISORDER FOLLOWING ORGANIC BRAIN DAMAGE MATERNAL AUNT: BREAST CA, OTHER MALIGNANT NEOPLASM OF UNSPECIFIED SITE 3 GREAT-AUNTS WITH PANCREATIC CA. SOCIAL HISTORY GENERAL: TOBACCO USE ARE YOU A:CURRENT SMOKER ARE YOU INTERESTED IN QUITTING?NOT READY TO QUIT PATIENT COUNSELED ON THE DANGERS OF TOBACCO USE AND URGED TO QUIT:01/02/2019 COUNSELED THE PATIENT ON SMOKING EFFECTS, EDUCATION [id number]/20/2019 PAIN CLINIC PFS, CLERGY, PUBLIC HEALTH REFERRALS PFS REFERRAL NEEDED?NO CLERGY REFERRAL NEEDED?NO PUBLIC HEALTH REFERRAL NEEDED?NO WAS THE PROVIDER NOTIFIED OF ANY PERTINENT INFO?YES HAS THE PATIENT BEEN EDUCATED REGARDING HIS/HER PLAN OF CARE?YES HAS THE PATIENT BEEN EDUCATED REGARDING PAIN, THE RISK FOR PAIN, THE IMPORTANCE OF EFFECTIVE PAIN MANAGEMENT, AND THE PAIN ASSESSMENT PROCESS?YES LATEX QUESTIONNAIRE LATEX ALLERGY : HAVE YOU EVER DEVELOPED ANY TYPE OF REACTION AFTER HANDLING LATEX PRODUCTS SUCH RUBBER GLOVES, CONDOMS, DIAPHRAGMS, BALLOONS, SOCKS, OR UNDERWEAR?NO LATEX ALLERGY : HAVE YOU EVER DEVELOPED ANY TYPE OF REACTION DURING OR AFTER DENTAL APPOINTMENT, VAGINAL/RECTAL EXAMINATION, SURGICAL PROCEDURE, OR ANY OTHER EXPOSURE?NO DATE ASKED : 06/20/2018 LATEX RISK : HAVE YOU EVER HAD ANY DIFFICULTY BREATHING OR HIVES AFTER EATING OR HANDLING ANY FRUITS, OR VEGETABLES; SUCH KIWI, BANANAS, STONE FRUITS, OR CHESTNUTSNO LATEX RISK : DO YOU HAVE A PREVIOUS PERSONAL HISTORY OF MORE THAN NINE SURGERIES, SPINA BIFIDA, OR REPEATED CATHERIZATIONS? NO LATEX RISK : ARE YOU FREQUENTLY EXPOSED TO LATEX PRODUCTS IN YOUR OCCUPATION?NO ADVANCE DIRECTIVE ADVANCE DIRECTIVE DISCUSSED WITH PATIENT:YES HCP - HUSSAIN MIC [phone] OR ARMOND MIC [phone] [employer] [id number] GNOSTICISM LANGUAGE LANGUAGES SPOKEN:ARGENTINE ALCOHOL SCREENING DID YOU HAVE A DRINK CONTAINING ALCOHOL IN THE PAST YEAR?NO POINTS0 INTERPRETATIONNEGATIVE RECREATIONAL DRUG USE DRUG USE?NO LEARNING BARRIERS / SPECIAL NEEDS CHANGE FROM LAST VISIT?NO BARRIERS TO LEARNING?NO HEARING IMPAIRED?NO VISION IMPAIRED?YES GLASSES FOR READING COGNITIVELY IMPAIRED?NO READINESS TO LEARN?YES LEARNING PREFERENCES?NO LEARNING CAPABILITIES PRESENT?YES EMOTIONAL BARRIERS?NO SPECIAL DEVICES?NO MEDICAL TRANSCRIBER NEEDED?NO REVIEWED WITH PATIENT 03/08/18 1221 JSREVIEWED WITH PATIENT 09/18/18 1330 LASREVIEWWED WITH PT 11/05/18 1417 NLJREVIEWED WITH PATIENT 01/02/19 1408 JS. HOSPITALIZATION/MAJOR DIAGNOSTIC PROCEDURE LAPAROSCOPIES, FINALLY HYSTERECTOMY LAPAROSCOPIC CHOLECYSTECTOMY (SAME DAY) July, PANCREATITIS STENT TO PANCREAS 2016 REVIEW OF SYSTEMS REVIEWED BY: PROVIDER: ZACK ROTHMAN . CONSTITUTIONAL: ANY CHANGE IN YOUR MEDICAL CONDITION? NO . CHILLS NO . FEVER NO . INFECTION: DO YOU HAVE NEW INFECTIONS? NO . DO YOU HAVE HISTORY OF MRSA? NO . MUSCULOSKELETAL: ANY NEW PATTERNS OF PAIN OR NUMBNESS? NO . GASTROENTEROLOGY: ANY NEW CHANGE IN BOWEL CONTROL? NO . GENITOURINARY: ANY NEW CHANGE IN BLADDER CONTROL? NO . IS THERE A CHANCE YOU COULD BE ? NO . HEMATOLOGY/LYMPH: DO YOU TAKE ANY BLOOD THINNERS? (FOR EXAMPLE- COUMADIN, PLAVIX, AGGRENOX, PLATEL, PRADAXA, OR XARELTO) NO . WHEN WAS YOUR LAST DOSE? DATE: TIME: . NEUROLOGY: HAVE YOU FALLEN IN THE PAST 12 MONTHS? NO . ANY NEW EXTREMITY NUMBNESS OR WEAKNESS? NO . CARDIOLOGY: DO YOU HAVE A PACEMAKER OR DEFIBRILLATOR? NO . RESPIRATORY: HAVE YOU BEEN SICK IN THE PAST WEEK? NO . FEVER NO . FLU LIKE SYMPTOMS? NO . COUGH NO . INTEGUMENTARY: DO YOU HAVE ANY RASHES OR OPEN SORES? NO . ALLERGIC/IMMUNO: ARE YOU ALLERGIC TO IV DYE? NO . ANY NEW ALLERGIES? NO . PSYCHIATRIC: DO YOU HAVE THOUGHTS OF HURTING YOURSELF OR SOMEONE ELSE? NO . ARE YOU ABUSED, NEGLECTED, OR IN AN UNSAFE ENVIRONMENT? NO . ENDOCRINOLOGY: ARE YOU DIABETIC? NO . OTHER: DO YOU NEED ANY PRESCRIPTIONS? YES . IF YES, PLEASE LIST: FATIMAH . ANY NEW PROBLEMS WITH YOUR MEDICATIONS? NO . WHEN DID YOU LAST EAT? ____ . WHEN DID YOU LAST DRINK? ____ . WHAT DID YOU LAST DRINK? ____ . NAME OF PERSON DRIVING YOU HOME? ____ . DO YOU HAVE ANY OTHER QUESTIONS OR CONCERNS NO . VITAL SIGNS WT 130.4 LBS, HT 63 IN, BMI 23.10 INDEX, BP 119/72 MM HG, HR 117 /MIN, RR 16 /MIN, TEMP 95.7 F, OXYGEN SAT % 96%, NA INITIALS AW 1431, REVIEWED BY: FRANKIE. EXAMINATION GENERAL EXAMINATION: GENERALAWAKE,ALERT ,PLEAASANT . PSYCHAFFECT NORMAL . LUNGS:LUNG RAMIREZ ARE CLEAR TO AUSCULTATION BILATERALLY. GOOD MOVEMENT OF AIR . HEART:S1, S2 IN A REGULAR RATE AND RHYTHM. NO SIGNIFICANT MURMURS, RUBS OR GALLOPS NOTED . ASSESSMENTS CHRONIC PANCREATITIS, UNSPECIFIED PANCREATITIS TYPE - K86.1 (PRIMARY) TREATMENT CHRONIC PANCREATITIS, UNSPECIFIED PANCREATITIS TYPE DECREASE DILAUDID TABLET, 8 MG, 1/2, ORALLY, Q8H PRN MDD 1.5, 30 DAYS, REFILLS 0 REFILL HYDROMORPHONE HCL ER TABLET ER 24 HOUR ABUSE-DETERRENT, 16 MG, 1 TABLET, ORALLY, ONCE A DAY FOR CHRONIC PAIN MDD1, 30 DAYS, 30, REFILLS 0 NOTES: ISTOP REGISTRY REVIEWED AND DEMONSTRATES COMPLLIANCE. BRINGS IN MEDICATIONS WHICH IS APPROPRIATE FOR WHAT WAS DISPENSED. RECENT URINE TOXICOLOGY REVIEWED. NO UNAUTHORIZED MEDICATIONS. NO ILLICIT SUBSTANCES AND PRESCRIBED MEDICATIONS WERE PRESENT. , RISKS OF NARCOTIC/OPIOD MEDICATIONS INCLUDES BUT IS NOT LIMITED TO RISK OF DEPENDANCE/DEVELOPMENT OF ADDICTION, MOOD DISTURBANCE AND DEPRESSION, OSTEOPOROSIS, HORMONAL AND LABIDAL CHANGES, RESPIRATORY DEPRESSION AND . PATIENT IS ADVISED NOT TO DRIVE OR DRINK ALCOHOL WHILE ON THESE MEDICATIONS. PROCEDURE CODES [id number] ESTABILISHED PATIENT [facility] CHARGE DISPOSITION & COMMUNICATION FOLLOW UP 6-8WKS (REASON: MED MGMNT) ELECTRONICALLY SIGNED BY STEPHAN CALLE ON 04/22/2019 AT 03:50 PM EDT DISCLAIMER : THIS IS A VISIT SUMMARY EXTRACTED FROM THE [employer] CHART. IT IS NOT A COPY OF THE [employer] PROGRESS NOTE. KIMMY
== END ==
LOC: M PAIN 14:30
PROVIDERS: ATTEND Nurse Practitioner Family
DX: K86.1 Other chronic pancreatitis (principal)

== ENCOUNTER → 2019-04-09 | Outpatient (CLI) | payer BC, OTHER ==
[2019-04-10 11:53] LABS: HEPATITIS A ANTIBODY IGM NEGATIVE (NEGATIVE); HEPATITIS B CORE ANTIBODY IGM NEGATIVE (NEGATIVE); HEPATITIS B SURFACE ANTIBODY NEGATIVE (POSITIVE); HEPATITIS B SURFACE ANTIGEN NEGATIVE (NEGATIVE); HEPATITIS C VIRUS ABY INDEX < 0.0 INDEX (<0.8); HIV 1&2 SCREEN CENTAUR NEGATIVE (NEGATIVE)
== END ==
LOC: M LAB 15:33
PROVIDERS: ATTEND Dermatology
DX: L40.9 Psoriasis, unspecified (principal)

== ENCOUNTER → 2019-05-16 | Outpatient (CLI) | payer OTHER ==
--- NOTE | 2019-05-17 02:58 | ECWPNPC ---
PATIENT NAME: MEL BOURGEOIS : 1965 GENDER: FEMALE VISIT DATE: 05/16/2019 DISCHARGE DATE: 05/16/19 1349 VISIT LOCKED DATE TIME: PHYSICIAN: ZACK BOLAND PHYSICIAN PAGER NO: [phone] RESOURCE: ZACK BOLAND REASON FOR APPOINTMENT 1. PANCREATITIS HISTORY OF PRESENT ILLNESS HISTORY OF PRESENT ILLNESS: PHONE CALL TO PATIENT AND PERMISSION GIVEN FOR TELEMED VISIT TODAY. DOING WELL WITH MEDICATION CHANGE THAT WAS DONE ON MAY 13. SUFFERS FROM CHRONIC PANCREATITIS. CURRENTLY USING DILAUDID EXTENDED RELEASE 12 MG 1 A DAY AND USING HYDROMORPHONE 8 MG TABLET 1/2 TO 1 TAB IF NEEDED FOR SEVERE PAIN EPISODES. PAIN HAS BEEN BETTER AND SHE IS REPORTING LESS SIDE EFFECTS SINCE WE LOWERED LONG-ACTING DOSE. HAS HAD TO USE ONE 8 MG HYDROMORPHONE INSTANT RELEASE BUT SOME DAYS AND MOST DAYS SHE DOES NOT NEED TO TAKE A SHORT ACTING. OVERALL DOING WELL. PAIN THE PATIENT DESCRIBES THE PAIN... FALL RISK SCREENING: SCREENING :NO FALLS REPORTED IN THE LAST YEAR CURRENT MEDICATIONS TAKING CLARINEX-D 24 HOUR 5-240 MG TABLET EXTENDED RELEASE 24 HOUR ORALLY DAILY NEEDED TAKING COMPAZINE 25MG RECTAL SUPPOSITORY RECTALLY EVERY 12 HOURS NEEDED FOR INTRACTABLE NAUSEA/VOMITING TAKING PSEUDOEPHEDRINE HCL 30 MG TABLET 1 - 2 TABLETS ORALLY EVERY 6 HOURS NEEDED FOR CONGESTION TAKING VOLTAREN 1 % GEL APPLY 1 G TO EACH HAND TRANSDERMAL 4 TIMES A DAY TAKING ZANTAC 150 MG TABLET ONE HALF ORALLY DIRECTED NEEDED TAKING SCOPOLAMINE 1 MG/3DAYS PATCH 72 HOUR 1 PATCH TO SKIN NEEDED TRANSDERMAL 1 PATCH Q 3 DAYS TAKING ZOFRAN 8 MG ODT 1 TABLET ORALLY EVERY 8 HOURS NEEDED FOR NAUSEA TAKING ZOFRAN ODT 4 MG TABLET DISINTEGRATING 1 TABLET ON THE TONGUE AND ALLOW TO DISSOLVE ORALLY EVERY 8 HRS NEEDED FOR N/V TAKING BETAMETHASONE DIPROPIONATE 0.05 % OINTMENT 1 APPLICATION EXTERNALLY TWICE A DAY TAKING IXEKIZUMAB 80 MG/ML SOLUTION PREFILLED SYRINGE 2 ML SUBCUTANEOUS ONCE TIME TO BEGIN TAKING CYMBALTA 60 MG CAPSULE DELAYED RELEASE PARTICLES 1 CAPSULE ORALLY ONCE A DAY TAKING DILAUDID 8 MG TABLET 1/2 TO 1 TAB ORALLY Q8-12 HR PRN PAIN MDD2 TAKING HYDROMORPHONE HCL ER 12 MG TABLET ER 24 HOUR ABUSE-DETERRENT 1 TAB ORALLY ONCE A DAY FOR CHRONIC PAIN MDD1 NOT-TAKING IXEKIZUMAB 80 MG/ML SOLUTION PREFILLED SYRINGE 1 ML SUBCUTANEOUS EVERY 2 WEEKS, NOTES: DUPLICATE NOT-TAKING DILAUDID 4 MG TABLET 1 TO 1 1/2 TAB ORALLY Q8H PRN MDD3 MEDICATION LIST REVIEWED AND RECONCILED WITH THE PATIENT PAST MEDICAL HISTORY OVERACTIVE BLADDER PSORIASIS IRRITABLE BOWEL SYNDROME H/O ENDOMETRIOSIS DEPRESSION FAMILIAL ESSENTIAL TREMORS DOES NOT DRINK - HOSPITAL RECORD IS INCORRECT (PROB AUTOIMMUNE) CHRONIC PANCREATITIS/PANCREATIC DUCT STRICTURES, S/P CBD AND PANCREATIC DUCT STENTS [id number]; 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, FOLLOWED UR CHRONIC ABD PAIN--SEES PAIN CLINIC IDENTIFIES TABATHA HAILE HCP HX ALOPECIA AREATA SCALP ALLERGIES PENICILLIN V POTASSIUM: EXACERBATES PSORIASIS - ALLERGY CODEINE SULFATE: VOMITING - SIDE EFFECTS CYMBALTA: DIZZINESS, LISTED TO THE LEFT - SIDE EFFECTS PHENERGAN: MADE HER ITCH ALL OVER - SIDE EFFECTS NUCYNTA: VOMITING - SIDE EFFECTS REGLAN: INCREASED ABD PAIN/CRAMPING - CONTRAINDICATION SURGICAL HISTORY LAPAROSCOPIC CHOLECYSTECTOMY 08/07/2012 TOTAL VAGINAL HYTERECTOMY, SPARED OVARIES 2000 ERCP WITH 2 STENTS 12/29/2015 ERCP WITH PANCREATIC STENT REPLACEMENT Q 2 MONTHS FAMILY HISTORY FATHER: 77 YRS, COPD MOTHER: , SUICIDE, MUNCHAUSSEN'S SYNDROME, DIAGNOSED WITH UNSPECIFIED NONPSYCHOTIC MENTAL DISORDER FOLLOWING ORGANIC BRAIN DAMAGE MATERNAL AUNT: BREAST CA, OTHER MALIGNANT NEOPLASM OF UNSPECIFIED SITE 3 GREAT-AUNTS WITH PANCREATIC CA, DENIES FH OF SKIN CANCER OR MELANOMA. SOCIAL HISTORY GENERAL: TOBACCO USE ARE YOU A:CURRENT SMOKER ARE YOU INTERESTED IN QUITTING?NOT READY TO QUIT COUNSELED THE PATIENT ON SMOKING EFFECTS, EDUCATION [id number]/02/2020 PATIENT COUNSELED ON THE DANGERS OF TOBACCO USE AND URGED TO QUIT:05/16/2019 PAIN CLINIC PFS, CLERGY, PUBLIC HEALTH REFERRALS PFS REFERRAL NEEDED?NO CLERGY REFERRAL NEEDED?NO PUBLIC HEALTH REFERRAL NEEDED?NO WAS THE PROVIDER NOTIFIED OF ANY PERTINENT INFO?YES HAS THE PATIENT BEEN EDUCATED REGARDING HIS/HER PLAN OF CARE?YES HAS THE PATIENT BEEN EDUCATED REGARDING PAIN, THE RISK FOR PAIN, THE IMPORTANCE OF EFFECTIVE PAIN MANAGEMENT, AND THE PAIN ASSESSMENT PROCESS?YES LATEX QUESTIONNAIRE LATEX ALLERGY : HAVE YOU EVER DEVELOPED ANY TYPE OF REACTION AFTER HANDLING LATEX PRODUCTS SUCH RUBBER GLOVES, CONDOMS, DIAPHRAGMS, BALLOONS, SOCKS, OR UNDERWEAR?NO LATEX ALLERGY : HAVE YOU EVER DEVELOPED ANY TYPE OF REACTION DURING OR AFTER DENTAL APPOINTMENT, VAGINAL/RECTAL EXAMINATION, SURGICAL PROCEDURE, OR ANY OTHER EXPOSURE?NO LATEX RISK : HAVE YOU EVER HAD ANY DIFFICULTY BREATHING OR HIVES AFTER EATING OR HANDLING ANY FRUITS, OR VEGETABLES; SUCH KIWI, BANANAS, STONE FRUITS, OR CHESTNUTSNO LATEX RISK : DO YOU HAVE A PREVIOUS PERSONAL HISTORY OF MORE THAN NINE SURGERIES, SPINA BIFIDA, OR REPEATED CATHERIZATIONS? NO LATEX RISK : ARE YOU FREQUENTLY EXPOSED TO LATEX PRODUCTS IN YOUR OCCUPATION?NO DATE ASKED : 04/09/2019 ADVANCE DIRECTIVE ADVANCE DIRECTIVE DISCUSSED WITH PATIENT:YES HCP - HUSSAIN HAILE [phone] OR ARMOND HAILE [phone] [employer] [id number] TEM[place] LANGUAGE LANGUAGES SPOKEN:LUXEMBOURGISH NEW PATIENT PAIN DIARY TODAY'S VISITNOTES 05/16/2019 PATIENT DESCRIBES PAIN :ACHING, HAVE IT ALL THE TIME, SHARP, THROBBING FROM 0-10, WHAT LEVEL IS YOUR PAIN TODAY?4 ALCOHOL SCREENING DID YOU HAVE A DRINK CONTAINING ALCOHOL IN THE PAST YEAR?NO POINTS0 INTERPRETATIONNEGATIVE RECREATIONAL DRUG USE DRUG USE?NO LEARNING BARRIERS / SPECIAL NEEDS CHANGE FROM LAST VISIT?NO 04/09/2019 BARRIERS TO LEARNING?NO HEARING IMPAIRED?NO VISION IMPAIRED?YES GLASSES FOR READING COGNITIVELY IMPAIRED?NO READINESS TO LEARN?YES LEARNING PREFERENCES?NO LEARNING CAPABILITIES PRESENT?YES EMOTIONAL BARRIERS?NO SPECIAL DEVICES?NO 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 CONSTITUTIONAL: ANY CHANGE IN YOUR MEDICAL CONDITION? NO . CHILLS NO . FEVER NO . INFECTION: DO YOU HAVE NEW INFECTIONS? NO . DO YOU HAVE HISTORY OF MRSA? NO . MUSCULOSKELETAL: ANY NEW PATTERNS OF PAIN OR NUMBNESS? NO . GASTROENTEROLOGY: ANY NEW CHANGE IN BOWEL CONTROL? NO . GENITOURINARY: ANY NEW CHANGE IN BLADDER CONTROL? NO . IS THERE A CHANCE YOU COULD BE ? NO . HEMATOLOGY/LYMPH: DO YOU TAKE ANY BLOOD THINNERS? (FOR EXAMPLE- COUMADIN, PLAVIX, AGGRENOX, PLATEL, PRADAXA, OR XARELTO) NO . WHEN WAS YOUR LAST DOSE? DATE: TIME: . NEUROLOGY: HAVE YOU FALLEN IN THE PAST 12 MONTHS? NO . ANY NEW EXTREMITY NUMBNESS OR WEAKNESS? NO . CARDIOLOGY: DO YOU HAVE A PACEMAKER OR DEFIBRILLATOR? NO . RESPIRATORY: HAVE YOU BEEN SICK IN THE PAST WEEK? NO . FEVER NO . FLU LIKE SYMPTOMS? NO . COUGH NO . INTEGUMENTARY: DO YOU HAVE ANY RASHES OR OPEN SORES? NO . ALLERGIC/IMMUNO: ARE YOU ALLERGIC TO IV DYE? NO . ANY NEW ALLERGIES? NO . PSYCHIATRIC: DO YOU HAVE THOUGHTS OF HURTING YOURSELF OR SOMEONE ELSE? NO . ARE YOU ABUSED, NEGLECTED, OR IN AN UNSAFE ENVIRONMENT? NO . ENDOCRINOLOGY: ARE YOU DIABETIC? NO . OTHER: DO YOU NEED ANY PRESCRIPTIONS? NO . IF YES, PLEASE LIST: ____ . ANY NEW PROBLEMS WITH YOUR MEDICATIONS? NO . WHEN DID YOU LAST EAT? ____ . WHEN DID YOU LAST DRINK? ____ . WHAT DID YOU LAST DRINK? ____ . NAME OF PERSON DRIVING YOU HOME? ____ . DO YOU HAVE ANY OTHER QUESTIONS OR CONCERNS NO . ASSESSMENTS CHRONIC PANCREATITIS, UNSPECIFIED PANCREATITIS TYPE - K86.1 (PRIMARY) TREATMENT CHRONIC PANCREATITIS, UNSPECIFIED PANCREATITIS TYPE CONTINUE DILAUDID TABLET, 8 MG, 1/2 TO 1 TAB, ORALLY, Q8-12 HR PRN PAIN MDD2 CONTINUE HYDROMORPHONE HCL ER TABLET ER 24 HOUR ABUSE-DETERRENT, 12 MG, 1 TAB, ORALLY, ONCE A DAY FOR CHRONIC PAIN MDD1 NOTES: ISTOP REGISTRY REVIEWED AND DEMONSTRATES COMPLLIANCE. RECENT URINE TOXICOLOGY REVIEWED. NO UNAUTHORIZED MEDICATIONS. NO ILLICIT SUBSTANCES AND PRESCRIBED MEDICATIONS WERE PRESENT. APPROXIMATELY 11 MINUTES WAS SPENT IN TELEPHONE CONFERENCE/TELEMED VISIT TODAY DISCUSSING MEDICATIONS AND TREATMENT OUTCOMES. DISPOSITION & COMMUNICATION FOLLOW UP 2 MONTHS (REASON: MED MGMNT/CHRONIC PANCREATITIS) ELECTRONICALLY SIGNED BY STEPHAN CALLE ON 05/16/2019 AT 01:54 PM EDT DISCLAIMER : THIS IS A VISIT SUMMARY EXTRACTED FROM THE [employer] CHART. IT IS NOT A COPY OF THE [employer] PROGRESS NOTE. KIMMY
== END ==
LOC: M PAIN 10:15
PROVIDERS: ATTEND Nurse Practitioner Family
DX: K86.1 Other chronic pancreatitis (principal); F17.210 Nicotine dependence, cigarettes, uncomplicated; Z79.891 Long term (current) use of opiate analgesic; Z79.899 Other long term (current) drug therapy; Z88.0 Allergy status to penicillin; Z88.5 Allergy status to narcotic agent; Z88.8 Allergy status to other drugs, medicaments and biological substances

== ENCOUNTER → 2019-07-16 | Outpatient (CLI) | payer OTHER ==
--- NOTE | 2019-07-18 04:08 | ECWPNPC ---
PATIENT NAME: MEL BOURGEOIS : 1965 GENDER: FEMALE VISIT DATE: 07/16/2019 DISCHARGE DATE: 07/16/19831 VISIT LOCKED DATE TIME: PHYSICIAN: ZACK BOLAND PHYSICIAN PAGER NO: [phone] RESOURCE: ZACK BOLAND REASON FOR APPOINTMENT 1. MED MGMNT/CHRONIC PANCREATITIS PAT PHONE CALL COMPLETED HISTORY OF PRESENT ILLNESS GENERAL: -. FALL RISK SCREENING: SCREENING :NO FALLS REPORTED IN THE LAST YEAR PAIN SCREENING: PATIENT HAS A COMPLAINT OF ACUTE OR CHRONIC PAIN :YES LOCATION OF PAIN:CHEST CHEST (STERNUM) TO LEFT SIDE OF RIBS INTENSITY OF PAIN (SCALE OF 1 TO 10):4 WHAT DOES YOUR PAIN FEEL LIKE:ACHING, CONTINOUS, SHARP, STABBING PAIN IS INCREASED BY: STRESS, INCREASED ACTRIVIES PAIN IS DECREASED BY:USE OF PAIN MEDICATIONS LAYING DOWN NURSING NOTE: -. PAIN CENTER INTAKE QUESTIONS: DO YOU HAVE A HISTORY OF MRSA? :NO DO YOU TAKE A BLOOD THINNERS? :NO DO YOU HAVE ANY BLEEDING DISORDERS? :NO ANY NEW NUMBNESS OR WEAKNESS IN YOUR LEGS OR ARMS? :NO ANY PACEMAKER,DEFIBRILLATOR, OR DORSAL COLUMN STIMULATOR? :NO DO YOU HAVE ANY RASHES OR OPEN SORES? :NO ARE YOU ALLERGIC TO IV DYE? :NO ARE YOU DIABETIC? :NO ANY NEW PROBLEMS WITH YOUR MEDICATIONS? :NO HAVE YOU RECEIVED A VACCINE IN THE PAST 30 DAYS? :NO DO YOU PLAN TO RECEIVE A VACCINE IN THE NEXT 21 DAYS? :NO DO YOU NEED ANY PRESCRIPTION? :YES DILAUDID (REGULAR AND EXTENDED RELEASE) AND CYMBALTA DO YOU TAKE ANY IMMUNOSUPPRESSIVE MEDICATIONS? :YES RANDALL HISTORY OF PRESENT ILLNESS: PHONE CALL TO PATIENT AND PERMISSION GIVEN FOR TELEMED VISIT TODAY. DOING WELL WITH MEDICATION CHANGE THAT WAS DONE ON MAY 13. SUFFERS FROM CHRONIC PANCREATITIS. CURRENTLY USING DILAUDID EXTENDED RELEASE 12 MG 1 A DAY AND USING HYDROMORPHONE 8 MG TABLET 1/2 TO 1 TAB IF NEEDED FOR SEVERE PAIN EPISODES. PAIN HAS BEEN BETTER AND SHE IS REPORTING LESS SIDE EFFECTS SINCE WE LOWERED LONG-ACTING DOSE. HAS HAD TO USE ONE 8 MG HYDROMORPHONE INSTANT RELEASE BUT SOME DAYS AND MOST DAYS SHE DOES NOT NEED TO TAKE A SHORT ACTING. OVERALL DOING WELL. PAIN THE PATIENT DESCRIBES THE PAIN... CURRENT MEDICATIONS TAKING CLARINEX-D 24 HOUR 5-240 MG TABLET EXTENDED RELEASE 24 HOUR ORALLY DAILY NEEDED TAKING COMPAZINE 25MG RECTAL SUPPOSITORY RECTALLY EVERY 12 HOURS NEEDED FOR INTRACTABLE NAUSEA/VOMITING TAKING PSEUDOEPHEDRINE HCL 30 MG TABLET 1 - 2 TABLETS ORALLY EVERY 6 HOURS NEEDED FOR CONGESTION TAKING VOLTAREN 1 % GEL APPLY 1 G TO EACH HAND TRANSDERMAL 4 TIMES A DAY TAKING SCOPOLAMINE 1 MG/3DAYS PATCH 72 HOUR 1 PATCH TO SKIN NEEDED TRANSDERMAL 1 PATCH Q 3 DAYS TAKING ZOFRAN 8 MG ODT 1 TABLET ORALLY EVERY 8 HOURS NEEDED FOR NAUSEA TAKING ZOFRAN ODT 4 MG TABLET DISINTEGRATING 1 TABLET ON THE TONGUE AND ALLOW TO DISSOLVE ORALLY EVERY 8 HRS NEEDED FOR N/V TAKING BETAMETHASONE DIPROPIONATE 0.05 % OINTMENT 1 APPLICATION EXTERNALLY TWICE A DAY TAKING IXEKIZUMAB 80 MG/ML SOLUTION PREFILLED SYRINGE 2 ML SUBCUTANEOUS ONCE TIME TO BEGIN TAKING DILAUDID 8 MG TABLET 1/2 TO 1 TAB ORALLY Q8-12 HR PRN PAIN MDD2 TAKING HYDROMORPHONE HCL ER 12 MG TABLET ER 24 HOUR ABUSE-DETERRENT 1 TAB ORALLY ONCE A DAY FOR CHRONIC PAIN MDD1 TAKING CYMBALTA 60 MG CAPSULE DELAYED RELEASE PARTICLES 1 CAPSULE ORALLY ONCE A DAY NOT-TAKING IXEKIZUMAB 80 MG/ML SOLUTION PREFILLED SYRINGE 1 ML SUBCUTANEOUS EVERY 2 WEEKS, NOTES: DUPLICATE NOT-TAKING DILAUDID 4 MG TABLET 1 TO 1 1/2 TAB ORALLY Q8H PRN MDD3 NOT-TAKING ZANTAC 150 MG TABLET ONE HALF ORALLY DIRECTED NEEDED MEDICATION LIST REVIEWED AND RECONCILED WITH THE PATIENT PAST MEDICAL HISTORY OVERACTIVE BLADDER PSORIASIS IRRITABLE BOWEL SYNDROME H/O ENDOMETRIOSIS DEPRESSION FAMILIAL ESSENTIAL TREMORS DOES NOT DRINK - HOSPITAL RECORD IS INCORRECT (PROB AUTOIMMUNE) CHRONIC PANCREATITIS/PANCREATIC DUCT STRICTURES, S/P CBD AND PANCREATIC DUCT STENTS [id number]; 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, FOLLOWED UR CHRONIC ABD PAIN--SEES PAIN CLINIC IDENTIFIES TABATHA HAILE HCP HX ALOPECIA AREATA SCALP ALLERGIES PENICILLIN V POTASSIUM: EXACERBATES PSORIASIS - ALLERGY CODEINE SULFATE: VOMITING - SIDE EFFECTS CYMBALTA: DIZZINESS, LISTED TO THE LEFT - SIDE EFFECTS PHENERGAN: MADE HER ITCH ALL OVER - SIDE EFFECTS NUCYNTA: VOMITING - SIDE EFFECTS REGLAN: INCREASED ABD PAIN/CRAMPING - CONTRAINDICATION SURGICAL HISTORY LAPAROSCOPIC CHOLECYSTECTOMY 08/07/2012 TOTAL VAGINAL HYTERECTOMY, SPARED OVARIES 2000 ERCP WITH 2 STENTS 12/29/2015 ERCP WITH PANCREATIC STENT REPLACEMENT Q 2 MONTHS FAMILY HISTORY FATHER: 77 YRS, COPD MOTHER: , SUICIDE, MUNCHAUSSEN'S SYNDROME, DIAGNOSED WITH UNSPECIFIED NONPSYCHOTIC MENTAL DISORDER FOLLOWING ORGANIC BRAIN DAMAGE MATERNAL AUNT: BREAST CA, OTHER MALIGNANT NEOPLASM OF UNSPECIFIED SITE 3 GREAT-AUNTS WITH PANCREATIC CA, DENIES FH OF SKIN CANCER OR MELANOMAFATHER STAGE IV COPDUNCLE DIABETES. SOCIAL HISTORY GENERAL: TOBACCO USE ARE YOU A:CURRENT SMOKER ARE YOU INTERESTED IN QUITTING?NOT READY TO QUIT COUNSELED THE PATIENT ON SMOKING EFFECTS, EDUCATION [id number]/01/2020 HOW MANY CIGARETTES A DAY DO YOU SMOKE?11-20 HOW OFTEN DO YOU SMOKE CIGARETTES?SOME DAYS, BUT NOT EVERY DAY PATIENT COUNSELED ON THE DANGERS OF TOBACCO USE AND URGED TO QUIT:07/15/2019 LATEX QUESTIONNAIRE LATEX ALLERGY : HAVE YOU EVER DEVELOPED ANY TYPE OF REACTION AFTER HANDLING LATEX PRODUCTS SUCH RUBBER GLOVES, CONDOMS, DIAPHRAGMS, BALLOONS, SOCKS, OR UNDERWEAR?NO LATEX ALLERGY : HAVE YOU EVER DEVELOPED ANY TYPE OF REACTION DURING OR AFTER DENTAL APPOINTMENT, VAGINAL/RECTAL EXAMINATION, SURGICAL PROCEDURE, OR ANY OTHER EXPOSURE?NO DATE ASKED : 04/09/2019 LATEX RISK : HAVE YOU EVER HAD ANY DIFFICULTY BREATHING OR HIVES AFTER EATING OR HANDLING ANY FRUITS, OR VEGETABLES; SUCH KIWI, BANANAS, STONE FRUITS, OR CHESTNUTSNO LATEX RISK : DO YOU HAVE A PREVIOUS PERSONAL HISTORY OF MORE THAN NINE SURGERIES, SPINA BIFIDA, OR REPEATED CATHERIZATIONS? NO LATEX RISK : ARE YOU FREQUENTLY EXPOSED TO LATEX PRODUCTS IN YOUR OCCUPATION?NO ALCOHOL SCREENING DID YOU HAVE A DRINK CONTAINING ALCOHOL IN THE PAST YEAR?NO POINTS0 INTERPRETATIONNEGATIVE RECREATIONAL DRUG USE DRUG USE?NO DRUZE [id number] [employer] LANGUAGE LANGUAGES SPOKEN:JORDANIAN LEARNING BARRIERS / SPECIAL NEEDS CHANGE FROM LAST VISIT?NO 07/15/2019 BARRIERS TO LEARNING?NO HEARING IMPAIRED?NO VISION IMPAIRED?YES GLASSES FOR READING COGNITIVELY IMPAIRED?NO READINESS TO LEARN?YES LEARNING PREFERENCES?NO LEARNING CAPABILITIES PRESENT?YES EMOTIONAL BARRIERS?NO SPECIAL DEVICES?NO NATURAL SCIENCES MANAGER NEEDED?NO NEW PATIENT PAIN DIARY TODAY'S VISIT NOTES 05/16/2019, PATIENT DESCRIBES PAIN : ACHING, HAVE IT ALL THE TIME, SHARP, THROBBING, FROM 0-10, WHAT LEVEL IS YOUR PAIN TODAY? 4. PAIN CLINIC PFS, CLERGY, PUBLIC HEALTH REFERRALS PFS REFERRAL NEEDED?NO CLERGY REFERRAL NEEDED?NO PUBLIC HEALTH REFERRAL NEEDED?NO WAS THE PROVIDER NOTIFIED OF ANY PERTINENT INFO?YES HAS THE PATIENT BEEN EDUCATED REGARDING HIS/HER PLAN OF CARE?YES HAS THE PATIENT BEEN EDUCATED REGARDING PAIN, THE RISK FOR PAIN, THE IMPORTANCE OF EFFECTIVE PAIN MANAGEMENT, AND THE PAIN ASSESSMENT PROCESS?YES ADVANCE DIRECTIVE ADVANCE DIRECTIVE DISCUSSED WITH PATIENT:YES HCP - HUSSAIN HAILE [phone] OR ARMOND HAILE [phone] HOSPITALIZATION/MAJOR DIAGNOSTIC PROCEDURE LAPAROSCOPIES, FINALLY HYSTERECTOMY LAPAROSCOPIC CHOLECYSTECTOMY (SAME DAY) July, PANCREATITIS 2012,2019 STENT TO PANCREAS 2016 REVIEW OF SYSTEMS CONSTITUTIONAL: ANY RECENT FEVER OR ILLNESS NO . CHILLS NO . GASTROENTEROLOGY: BOWEL INCONTINENCE NO . ANY NEW CHANGE IN BOWEL CONTROL? NO . ABDOMINAL PAIN NO . CONSTIPATION NO . GENITOURINARY: ANY NEW CHANGE IN BLADDER CONTROL? NO . IS THERE A CHANCE YOU COULD BE ? NO . URINARY INCONTINENCE NO . CARDIOLOGY: CHEST PRESSURE NO . CHEST PAIN NO . RESPIRATORY: COUGH NO . SHORTNESS OF BREATH NO . ASSESSMENTS CHRONIC PANCREATITIS, UNSPECIFIED PANCREATITIS TYPE - K86.1 (PRIMARY) CHRONIC PRESCRIPTION OPIATE USE - Z79.891 TREATMENT CHRONIC PANCREATITIS, UNSPECIFIED PANCREATITIS TYPE CONTINUE DILAUDID TABLET, 8 MG, 1/2 TO 1 TAB, ORALLY, Q8-12 HR PRN PAIN MDD2, 30 DAYS, 60, REFILLS 0 CONTINUE CYMBALTA CAPSULE DELAYED RELEASE PARTICLES, 60 MG, 1 CAPSULE, ORALLY, ONCE A DAY, 30 DAYS, 30 CAPSULE, REFILLS 5 CONTINUE HYDROMORPHONE HCL ER TABLET ER 24 HOUR ABUSE-DETERRENT, 12 MG, 1 TAB, ORALLY, ONCE A DAY FOR CHRONIC PAIN MDD1, 30 DAYS, 30, REFILLS 0 NOTES: ISTOP REGISTRY REVIEWED AND DEMONSTRATES COMPLLIANCE. ( RECENT URINE TOXICOLOGY REVIEWED. NO UNAUTHORIZED MEDICATIONS. NO ILLICIT SUBSTANCES AND PRESCRIBED MEDICATIONS WERE PRESENT. URINE TOX AT F/U TIME SPENT DURING TELEPHONE VISIT WAS APPROXIMATELY 11 MINUTES. DISPOSITION & COMMUNICATION FOLLOW UP 3 MONTHS-IN CLINIC FOLLOW-UP/MEDICINE MANAGEMENT/TOXICOLOGY (REASON: CHRONIC PANCREATITIS) ELECTRONICALLY SIGNED BY STEPHAN CALLE ON 07/17/2019 AT 02:41 PM EDT DISCLAIMER : THIS IS A VISIT SUMMARY EXTRACTED FROM THE [employer] CHART. IT IS NOT A COPY OF THE [employer] PROGRESS NOTE. KIMMY
== END ==
LOC: M PAIN 13:00
PROVIDERS: ATTEND Nurse Practitioner Family
DX: K86.1 Other chronic pancreatitis (principal); F17.210 Nicotine dependence, cigarettes, uncomplicated; Z79.891 Long term (current) use of opiate analgesic; Z79.899 Other long term (current) drug therapy; Z88.0 Allergy status to penicillin; Z88.5 Allergy status to narcotic agent; Z88.8 Allergy status to other drugs, medicaments and biological substances

== ENCOUNTER → 2020-01-29 | Outpatient (CLI) | payer BC, OTHER ==
--- NOTE | 2020-01-31 00:28 | ECWPNPC ---
PATIENT NAME: MEL THOMAS : 1965 GENDER: FEMALE VISIT DATE: 01/29/2020 DISCHARGE DATE: 01/29/20 1449 VISIT LOCKED DATE TIME: PHYSICIAN: ZACK BOLAND PHYSICIAN PAGER NO: ACTIVE RESOURCE: ZACK BOLAND REASON FOR APPOINTMENT 1. F/U MED MGMNT/CHRONIC PANCREATITIS HISTORY OF PRESENT ILLNESS DEPRESSION SCREENING: PHQ-2 (2015 EDITION) LITTLE INTEREST OR PLEASURE IN DOING THINGS?NOT AT ALL FEELING DOWN, DEPRESSED, OR HOPELESS?NOT AT ALL TOTAL SCORE0 GENERAL: HERE FOR ROUTINE FOLLOW-UP AND MEDICATION MANAGEMENT FOR CHRONIC ABDOMINAL PAIN ASSOCIATED WITH CHRONIC PANCREATITIS. FINDS CURRENT CHRONIC PAIN MEDICATION HELPFUL AT REDUCING PAIN AND KEEPING HER FUNCTIONAL. DENIES ADVERSE SIDE EFFECTS WITH HER MEDICATION. PATIENT FORGOT TO BRING IN HER MEDICATION TODAY. I'VE ADVISED HER THAT WE WILL HAVE TO HAVE THE MEDICATION AT THE APPOINTMENT FOR ALL APPOINTMENTS IN ORDER TO BE REFILLED. PATIENT VOICES UNDERSTANDING. -. FALL RISK SCREENING: SCREENING :NO FALLS REPORTED IN THE LAST YEAR PAIN SCREENING: PATIENT HAS A COMPLAINT OF ACUTE OR CHRONIC PAIN :YES LOCATION OF PAIN:CHEST CENTER-FROM PANCREATITIS INTENSITY OF PAIN (SCALE OF 1 TO 10):4 AVERAGE 6 WHAT DOES YOUR PAIN FEEL LIKE:ACHING, CONTINOUS, SHARP, STABBING, TENDER, SORE, SHOOTING DURATION:CONTINOUS, CONSTANT, AWAKENS FROM SLEEP PAIN IS INCREASED BY: STRESS PAIN IS DECREASED BY: NOTHING PAIN HAS INTERFERED WITH THE FOLLOWING: EVERYTHING NURSING NOTE: -. PAIN CENTER INTAKE QUESTIONS: DO YOU HAVE A HISTORY OF MRSA? :NO DO YOU TAKE A BLOOD THINNERS? :NO DO YOU HAVE ANY BLEEDING DISORDERS? :NO ANY NEW NUMBNESS OR WEAKNESS IN YOUR LEGS OR ARMS? :NO ANY PACEMAKER,DEFIBRILLATOR, OR DORSAL COLUMN STIMULATOR? :NO DO YOU HAVE ANY RASHES OR OPEN SORES? :NO ARE YOU ALLERGIC TO IV DYE? :NO ARE YOU DIABETIC? :NO ANY NEW PROBLEMS WITH YOUR MEDICATIONS? :NO HAVE YOU RECEIVED A VACCINE IN THE PAST 30 DAYS? :NO DO YOU PLAN TO RECEIVE A VACCINE IN THE NEXT 21 DAYS? :NO DO YOU NEED ANY PRESCRIPTION? :NO DO YOU TAKE ANY IMMUNOSUPPRESSIVE MEDICATIONS? :NO IS THERE A CHANCE YOU COULD BE ? :NO ARE YOU BREAST FEEDING? :NO CURRENT MEDICATIONS TAKING VOLTAREN 1 % GEL APPLY 1 G TO EACH HAND TRANSDERMAL 4 TIMES A DAY TAKING SCOPOLAMINE 1 MG/3DAYS PATCH 72 HOUR 1 PATCH TO SKIN NEEDED TRANSDERMAL 1 PATCH Q 3 DAYS TAKING ZOFRAN ODT 4 MG TABLET DISINTEGRATING 1 TABLET ON THE TONGUE AND ALLOW TO DISSOLVE ORALLY EVERY 8 HRS NEEDED FOR N/V TAKING CYMBALTA 60 MG CAPSULE DELAYED RELEASE PARTICLES 1 CAPSULE ORALLY ONCE A DAY TAKING AZELASTINE HCL 0.05 % SOLUTION 1 DROP INTO AFFECTED EYE OPHTHALMIC TWICE A DAY TAKING ZOFRAN 8 MG ODT 1 TABLET ORALLY EVERY 8 HOURS NEEDED FOR NAUSEA TAKING DILAUDID 8 MG TABLET 1/2 TO 1 TAB ORALLY Q8-12 HR PRN PAIN MDD2 TAKING HYDROMORPHONE HCL ER 12 MG TABLET ER 24 HOUR ABUSE-DETERRENT 1 TAB ORALLY ONCE A DAY FOR CHRONIC PAIN MDD1 NOT-TAKING IXEKIZUMAB 80 MG/ML SOLUTION PREFILLED SYRINGE 1 ML SUBCUTANEOUS EVERY 2 WEEKS, NOTES: DUPLICATE NOT-TAKING DILAUDID 4 MG TABLET 1 TO 1 1/2 TAB ORALLY Q8H PRN MDD3 NOT-TAKING ZANTAC 150 MG TABLET ONE HALF ORALLY DIRECTED NEEDED NOT-TAKING CLARINEX-D 24 HOUR 5-240 MG TABLET EXTENDED RELEASE 24 HOUR ORALLY DAILY NEEDED NOT-TAKING PSEUDOEPHEDRINE HCL 30 MG TABLET 1 - 2 TABLETS ORALLY EVERY 6 HOURS NEEDED FOR CONGESTION NOT-TAKING COMPAZINE 25MG RECTAL SUPPOSITORY RECTALLY EVERY 12 HOURS NEEDED FOR INTRACTABLE NAUSEA/VOMITING NOT-TAKING BETAMETHASONE DIPROPIONATE 0.05 % OINTMENT 1 APPLICATION EXTERNALLY TWICE A DAY NOT-TAKING IXEKIZUMAB 80 MG/ML SOLUTION PREFILLED SYRINGE 2 ML SUBCUTANEOUS ONCE TIME TO BEGIN NOT-TAKING FLUTICASONE PROPIONATE 50 MCG/ACT SUSPENSION 1 SPRAY IN EACH NOSTRIL NASALLY ONCE A DAY MEDICATION LIST REVIEWED AND RECONCILED WITH THE PATIENT PAST MEDICAL HISTORY OVERACTIVE BLADDER PSORIASIS IRRITABLE BOWEL SYNDROME H/O ENDOMETRIOSIS DEPRESSION FAMILIAL ESSENTIAL TREMORS DOES NOT DRINK - HOSPITAL RECORD IS INCORRECT (PROB AUTOIMMUNE) CHRONIC PANCREATITIS/PANCREATIC DUCT STRICTURES, S/P CBD AND PANCREATIC DUCT STENTS [id number]; 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, FOLLOWED UR CHRONIC ABD PAIN--SEES PAIN CLINIC IDENTIFIES TABATHA HAILE HCP HX ALOPECIA AREATA SCALP ALLERGIES PENICILLIN V POTASSIUM: EXACERBATES PSORIASIS - ALLERGY CODEINE SULFATE: VOMITING - SIDE EFFECTS CYMBALTA: DIZZINESS, LISTED TO THE LEFT - SIDE EFFECTS PHENERGAN: MADE HER ITCH ALL OVER - SIDE EFFECTS NUCYNTA: VOMITING - SIDE EFFECTS REGLAN: INCREASED ABD PAIN/CRAMPING - CONTRAINDICATION SURGICAL HISTORY LAPAROSCOPIC CHOLECYSTECTOMY 08/07/2012 TOTAL VAGINAL HYTERECTOMY, SPARED OVARIES 2000 ERCP WITH 2 STENTS 12/29/2015 ERCP WITH PANCREATIC STENT REPLACEMENT Q 2 MONTHS(01/29/2020-LAST TIME OVER A YR AGO) FAMILY HISTORY FATHER: 77 YRS, COPD MOTHER: , SUICIDE, MUNCHAUSSEN'S SYNDROME, DIAGNOSED WITH UNSPECIFIED NONPSYCHOTIC MENTAL DISORDER FOLLOWING ORGANIC BRAIN DAMAGE MATERNAL AUNT: BREAST CA, OTHER MALIGNANT NEOPLASM OF UNSPECIFIED SITE 3 GREAT-AUNTS WITH PANCREATIC CA, DENIES FH OF SKIN CANCER OR MELANOMAFATHER STAGE IV COPDUNCLE DIABETES. SOCIAL HISTORY GENERAL: TOBACCO USE ARE YOU A:CURRENT SMOKER ARE YOU INTERESTED IN QUITTING?NOT READY TO QUIT COUNSELED THE PATIENT ON SMOKING EFFECTS, EDUCATION [id number]/01/2020 HOW MANY CIGARETTES A DAY DO YOU SMOKE?11-20 HOW OFTEN DO YOU SMOKE CIGARETTES?SOME DAYS, BUT NOT EVERY DAY PATIENT COUNSELED ON THE DANGERS OF TOBACCO USE AND URGED TO QUIT:01/29/2020 LATEX QUESTIONNAIRE LATEX ALLERGY : HAVE YOU EVER DEVELOPED ANY TYPE OF REACTION AFTER HANDLING LATEX PRODUCTS SUCH RUBBER GLOVES, CONDOMS, DIAPHRAGMS, BALLOONS, SOCKS, OR UNDERWEAR?NO LATEX ALLERGY : HAVE YOU EVER DEVELOPED ANY TYPE OF REACTION DURING OR AFTER DENTAL APPOINTMENT, VAGINAL/RECTAL EXAMINATION, SURGICAL PROCEDURE, OR ANY OTHER EXPOSURE?NO LATEX RISK : HAVE YOU EVER HAD ANY DIFFICULTY BREATHING OR HIVES AFTER EATING OR HANDLING ANY FRUITS, OR VEGETABLES; SUCH KIWI, BANANAS, STONE FRUITS, OR CHESTNUTSNO LATEX RISK : DO YOU HAVE A PREVIOUS PERSONAL HISTORY OF MORE THAN NINE SURGERIES, SPINA BIFIDA, OR REPEATED CATHERIZATIONS? NO LATEX RISK : ARE YOU FREQUENTLY EXPOSED TO LATEX PRODUCTS IN YOUR OCCUPATION?NO DATE ASKED : 01/29/2020 ALCOHOL SCREENING DID YOU HAVE A DRINK CONTAINING ALCOHOL IN THE PAST YEAR?NO POINTS0 INTERPRETATIONNEGATIVE RECREATIONAL DRUG USE DRUG USE?NO YAZDANISM [id number] YARSANISM LANGUAGE LANGUAGES SPOKEN:PORTUGUESE LEARNING BARRIERS / SPECIAL NEEDS CHANGE FROM LAST VISIT?NO BARRIERS TO LEARNING?NO HEARING IMPAIRED?NO VISION IMPAIRED?YES GLASSES FOR READING COGNITIVELY IMPAIRED?NO READINESS TO LEARN?YES LEARNING PREFERENCES?NO LEARNING CAPABILITIES PRESENT?YES EMOTIONAL BARRIERS?NO SPECIAL DEVICES?NO DESTINATION COORDINATOR NEEDED?NO DOMESTIC VIOLENCE DO YOU FEEL SAFE IN YOUR ENVIRONMENT?YES PAIN CLINIC PFS, CLERGY, PUBLIC HEALTH REFERRALS PFS REFERRAL NEEDED?NO CLERGY REFERRAL NEEDED?NO PUBLIC HEALTH REFERRAL NEEDED?NO WAS THE PROVIDER NOTIFIED OF ANY PERTINENT INFO?YES HAS THE PATIENT BEEN EDUCATED REGARDING HIS/HER PLAN OF CARE?YES HAS THE PATIENT BEEN EDUCATED REGARDING PAIN, THE RISK FOR PAIN, THE IMPORTANCE OF EFFECTIVE PAIN MANAGEMENT, AND THE PAIN ASSESSMENT PROCESS?YES ADVANCE DIRECTIVE ADVANCE DIRECTIVE DISCUSSED WITH PATIENT:YES HCP - HUSSAIN HAILE [phone] OR ARMOND HAILE [phone] HOSPITALIZATION/MAJOR DIAGNOSTIC PROCEDURE LAPAROSCOPIES, FINALLY HYSTERECTOMY LAPAROSCOPIC CHOLECYSTECTOMY (SAME DAY) July, PANCREATITIS 2012,2019 STENT TO PANCREAS 2016 REVIEW OF SYSTEMS CONSTITUTIONAL: ANY RECENT FEVER NO . CHILLS NO . WEIGHT CHANGE OF UNKNOWN REASONS NO . GASTROENTEROLOGY: NEW UNEXPLAINABLE CHANGES IN BOWEL CONTROL NO . CONSTIPATION NO . GENITOURINARY: ANY NEW CHANGE IN BLADDER CONTROL? NO . NEUROLOGY: NEW ONSET DIZZINESS OR NEUROLOGICAL CHANGES NOT MENTIONED NO . NEW NUMBNESS OR PAIN PATTERNS NOT MENTIONED AND PERTINENT TO TODAY'S VISIT NO . CARDIOLOGY: NEW CHEST PRESSURE NO . NEW CHEST PAIN NO . RESPIRATORY: UNEXPLAINABLE COUGH NO . NEW SHORTNESS OF BREATH NO . VITAL SIGNS WT 130.6 LBS, HT 63 IN, BMI 23.13 INDEX, BP 136/88 MM HG, HR 102 /MIN, RR 18 /MIN, TEMP 96.8 F, OXYGEN SAT % 99%, SAFE IN ENV? (Y/N) Y, NA INITIALS AW 1407, REVIEWED BY: Deanne REYES RN 1423. EXAMINATION GENERAL EXAMINATION: GENERALAWAKE,ALERT ,PLEAASANT . PSYCHAFFECT NORMAL . LUNGS:LUNG RAMIREZ ARE CLEAR TO AUSCULTATION BILATERALLY. GOOD MOVEMENT OF AIR . HEART:S1, S2 IN A REGULAR RATE AND RHYTHM. NO SIGNIFICANT MURMURS, RUBS OR GALLOPS NOTED . ASSESSMENTS CHRONIC PANCREATITIS, UNSPECIFIED PANCREATITIS TYPE - K86.1 (PRIMARY) CHRONIC PRESCRIPTION OPIATE USE - Z79.891 TREATMENT CHRONIC PANCREATITIS, UNSPECIFIED PANCREATITIS TYPE CONTINUE ZOFRAN ODT, 8 MG, 1 TABLET, ORALLY, EVERY 8 HOURS NEEDED FOR NAUSEA CONTINUE DILAUDID TABLET, 8 MG, 1/2 TO 1 TAB, ORALLY, Q8-12 HR PRN PAIN MDD2 CONTINUE HYDROMORPHONE HCL ER TABLET ER 24 HOUR ABUSE-DETERRENT, 12 MG, 1 TAB, ORALLY, ONCE A DAY FOR CHRONIC PAIN MDD1 NOTES: ISTOP REGISTRY REVIEWED AND DEMONSTRATES COMPLLIANCE. URINE TOX TODAY ADVISED TO BRING MEDICATION TO ALL FUTURE APPOINTMENTS , RISKS OF NARCOTIC/OPIOD MEDICATIONS INCLUDES BUT IS NOT LIMITED TO RISK OF DEPENDANCE/DEVELOPMENT OF ADDICTION, MOOD DISTURBANCE AND DEPRESSION, OSTEOPOROSIS, HORMONAL AND LABIDAL CHANGES, RESPIRATORY DEPRESSION AND . PATIENT IS ADVISED NOT TO DRIVE OR DRINK ALCOHOL WHILE ON THESE MEDICATIONS. PROCEDURE CODES FA211 ESTABILISHED PATIENT [facility] CHARGE DISPOSITION & COMMUNICATION FOLLOW UP 3 MONTHS (REASON: MEDICATION MANAGEMENT/REVIEW URINE TOX) ELECTRONICALLY SIGNED BY STEPHAN CALLE ON 01/30/2020 AT 02:58 PM EST DISCLAIMER : THIS IS A VISIT SUMMARY EXTRACTED FROM THE [employer] CHART. IT IS NOT A COPY OF THE [employer] PROGRESS NOTE. KIMMY
== END ==
LOC: M PAIN 13:45
PROVIDERS: ATTEND Nurse Practitioner Family
DX: K86.1 Other chronic pancreatitis (principal); G89.29 Other chronic pain; F17.210 Nicotine dependence, cigarettes, uncomplicated; Z86.59 Personal history of other mental and behavioral disorders; Z88.0 Allergy status to penicillin; Z88.5 Allergy status to narcotic agent; Z88.8 Allergy status to other drugs, medicaments and biological substances; Z79.891 Long term (current) use of opiate analgesic; Z79.899 Other long term (current) drug therapy

== ENCOUNTER → 2020-04-10 | Outpatient (CLI) | payer BC, OTHER ==
[~2020-04-10] MED LIST changes: +GABA-282 PO; -GABA-843 PO
--- NOTE | 2020-04-18 04:06 | ECWPNPC ---
PATIENT NAME: MEL BOURGEOIS : 1965 GENDER: FEMALE VISIT DATE: 04/10/2020 DISCHARGE DATE: 04/10/20 1503 VISIT LOCKED DATE TIME: PHYSICIAN: ZACK BOLAND PHYSICIAN PAGER NO: ACTIVE RESOURCE: ZACK BOLAND REASON FOR APPOINTMENT 1. PANCREAS/NEW MED HISTORY OF PRESENT ILLNESS GENERAL: HERE FOR ROUTINE FOLLOW-UP AND MEDICATION MANAGEMENT FOR CHRONIC ABDOMINAL PAIN ASSOCIATED WITH CHRONIC PANCREATITIS. FINDS CURRENT CHRONIC PAIN MEDICATION HELPFUL AT REDUCING PAIN AND KEEPING HER FUNCTIONAL. DENIES ADVERSE SIDE EFFECTS WITH HER MEDICATION. RECENTLY HAS BEEN EXPERIENCING MORE PAIN THROUGHOUT THE DAY. SHE DOESN'T FEEL HER LONG-ACTING PAIN MEDICATION IS WORKING LIKE IT USE TO. - -. FALL RISK SCREENING: SCREENING :NO FALLS REPORTED IN THE LAST YEAR PAIN SCREENING: PATIENT HAS A COMPLAINT OF ACUTE OR CHRONIC PAIN :YES LOCATION OF PAIN:ABDOMEN PANCREAS INTENSITY OF PAIN (SCALE OF 1 TO 10):4 WHAT DOES YOUR PAIN FEEL LIKE:ACHING, TENDER, SORE, SHOOTING DURATION:CONTINOUS, CONSTANT, ALL DAY PAIN IS INCREASED BY:ACTIVITIES PAIN IS DECREASED BY:USE OF PAIN MEDICATIONS NURSING NOTE: -. PAIN CENTER INTAKE QUESTIONS: DO YOU HAVE A HISTORY OF MRSA? :NO DO YOU TAKE A BLOOD THINNERS? :NO DO YOU HAVE ANY BLEEDING DISORDERS? :NO ANY NEW NUMBNESS OR WEAKNESS IN YOUR LEGS OR ARMS? :NO ANY PACEMAKER,DEFIBRILLATOR, OR DORSAL COLUMN STIMULATOR? :NO DO YOU HAVE ANY RASHES OR OPEN SORES? :NO ARE YOU ALLERGIC TO IV DYE? :NO ARE YOU DIABETIC? :NO ANY NEW PROBLEMS WITH YOUR MEDICATIONS? :NO HAVE YOU RECEIVED A VACCINE IN THE PAST 30 DAYS? :NO DO YOU PLAN TO RECEIVE A VACCINE IN THE NEXT 21 DAYS? :NO DO YOU NEED ANY PRESCRIPTION? :NO DO YOU TAKE ANY IMMUNOSUPPRESSIVE MEDICATIONS? :NO IS THERE A CHANCE YOU COULD BE ? :NO ARE YOU BREAST FEEDING? :NO CURRENT MEDICATIONS TAKING VOLTAREN 1 % GEL APPLY 1 G TO EACH HAND TRANSDERMAL 4 TIMES A DAY TAKING ZOFRAN ODT 4 MG TABLET DISINTEGRATING 1 TABLET ON THE TONGUE AND ALLOW TO DISSOLVE ORALLY EVERY 8 HRS NEEDED FOR N/V TAKING ZOFRAN 8 MG ODT 1 TABLET ORALLY EVERY 8 HOURS NEEDED FOR NAUSEA TAKING SCOPOLAMINE 1 MG/3DAYS PATCH 72 HOUR 1 PATCH TO SKIN NEEDED TRANSDERMAL 1 PATCH Q 3 DAYS TAKING BETAMETHASONE DIPROPIONATE 0.05 % OINTMENT 1 APPLICATION EXTERNALLY TWICE A DAY WHEN FLARED TAKING TRIAMCINOLONE ACETONIDE 0.1 % OINTMENT 1 APPLICATION EXTERNALLY TWICE A DAY WHEN IMPROVED TAKING CYMBALTA 60 MG CAPSULE DELAYED RELEASE PARTICLES 1 CAPSULE ORALLY ONCE A DAY TAKING DILAUDID 8 MG TABLET 1/2 TO 1 TAB ORALLY Q8-12 HR PRN PAIN MDD2 TAKING HYDROMORPHONE HCL ER 12 MG TABLET EXTENDED RELEASE 24 HOUR 1 TABLET ORALLY ONCE A DAY MDD1 NOT-TAKING IXEKIZUMAB 80 MG/ML SOLUTION PREFILLED SYRINGE 1 ML SUBCUTANEOUS EVERY 2 WEEKS, NOTES: DUPLICATE NOT-TAKING DILAUDID 4 MG TABLET 1 TO 1 1/2 TAB ORALLY Q8H PRN MDD3 NOT-TAKING ZANTAC 150 MG TABLET ONE HALF ORALLY DIRECTED NEEDED NOT-TAKING CLARINEX-D 24 HOUR 5-240 MG TABLET EXTENDED RELEASE 24 HOUR ORALLY DAILY NEEDED NOT-TAKING PSEUDOEPHEDRINE HCL 30 MG TABLET 1 - 2 TABLETS ORALLY EVERY 6 HOURS NEEDED FOR CONGESTION NOT-TAKING COMPAZINE 25MG RECTAL SUPPOSITORY RECTALLY EVERY 12 HOURS NEEDED FOR INTRACTABLE NAUSEA/VOMITING NOT-TAKING BETAMETHASONE DIPROPIONATE 0.05 % OINTMENT 1 APPLICATION EXTERNALLY TWICE A DAY NOT-TAKING IXEKIZUMAB 80 MG/ML SOLUTION PREFILLED SYRINGE 2 ML SUBCUTANEOUS ONCE TIME TO BEGIN NOT-TAKING FLUTICASONE PROPIONATE 50 MCG/ACT SUSPENSION 1 SPRAY IN EACH NOSTRIL NASALLY ONCE A DAY NOT-TAKING AZELASTINE HCL 0.05 % SOLUTION 1 DROP INTO AFFECTED EYE OPHTHALMIC TWICE A DAY NOT-TAKING HYDROMORPHONE HCL ER 12 MG TABLET ER 24 HOUR ABUSE-DETERRENT 1 TAB ORALLY ONCE A DAY FOR CHRONIC PAIN MDD1 NOT-TAKING CYMBALTA 20 MG CAPSULE DELAYED RELEASE PARTICLES 1 CAPSULE ORALLY IN AM MEDICATION LIST REVIEWED AND RECONCILED WITH THE PATIENT PAST MEDICAL HISTORY OVERACTIVE BLADDER PSORIASIS IRRITABLE BOWEL SYNDROME H/O ENDOMETRIOSIS DEPRESSION FAMILIAL ESSENTIAL TREMORS DOES NOT DRINK - HOSPITAL RECORD IS INCORRECT (PROB AUTOIMMUNE) CHRONIC PANCREATITIS/PANCREATIC DUCT STRICTURES, S/P CBD AND PANCREATIC DUCT STENTS [id number]; 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, FOLLOWED UR CHRONIC ABD PAIN--SEES PAIN CLINIC IDENTIFIES TABATHA HAILE HCP HX ALOPECIA AREATA SCALP ALLERGIES PENICILLIN V POTASSIUM: EXACERBATES PSORIASIS - ALLERGY CODEINE SULFATE: VOMITING - SIDE EFFECTS CYMBALTA: DIZZINESS, LISTED TO THE LEFT - SIDE EFFECTS PHENERGAN: MADE HER ITCH ALL OVER - SIDE EFFECTS NUCYNTA: VOMITING - SIDE EFFECTS REGLAN: INCREASED ABD PAIN/CRAMPING - CONTRAINDICATION SOCIAL HISTORY GENERAL: TOBACCO USE ARE YOU A:CURRENT SMOKER HOW OFTEN DO YOU SMOKE CIGARETTES?SOME DAYS, BUT NOT EVERY DAY HOW MANY CIGARETTES A DAY DO YOU SMOKE?11-20 ARE YOU INTERESTED IN QUITTING?NOT READY TO QUIT PATIENT COUNSELED ON THE DANGERS OF TOBACCO USE AND URGED TO QUIT:01/29/2020 COUNSELED THE PATIENT ON SMOKING EFFECTS, EDUCATION [id number]/01/2020 LATEX QUESTIONNAIRE LATEX ALLERGY : HAVE YOU EVER DEVELOPED ANY TYPE OF REACTION AFTER HANDLING LATEX PRODUCTS SUCH RUBBER GLOVES, CONDOMS, DIAPHRAGMS, BALLOONS, SOCKS, OR UNDERWEAR?NO LATEX ALLERGY : HAVE YOU EVER DEVELOPED ANY TYPE OF REACTION DURING OR AFTER DENTAL APPOINTMENT, VAGINAL/RECTAL EXAMINATION, SURGICAL PROCEDURE, OR ANY OTHER EXPOSURE?NO LATEX RISK : HAVE YOU EVER HAD ANY DIFFICULTY BREATHING OR HIVES AFTER EATING OR HANDLING ANY FRUITS, OR VEGETABLES; SUCH KIWI, BANANAS, STONE FRUITS, OR CHESTNUTSNO LATEX RISK : DO YOU HAVE A PREVIOUS PERSONAL HISTORY OF MORE THAN NINE SURGERIES, SPINA BIFIDA, OR REPEATED CATHERIZATIONS? NO LATEX RISK : ARE YOU FREQUENTLY EXPOSED TO LATEX PRODUCTS IN YOUR OCCUPATION?NO DATE ASKED : 04/10/2020 ALCOHOL USE: YES,ONCE A YEAR. ALCOHOL SCREENING DID YOU HAVE A DRINK CONTAINING ALCOHOL IN THE PAST YEAR?NO POINTS0 INTERPRETATIONNEGATIVE RECREATIONAL DRUG USE DRUG USE?NO ISLAM [id number] SABIANIST LANGUAGE LANGUAGES SPOKEN:CUBAN LEARNING BARRIERS / SPECIAL NEEDS CHANGE FROM LAST VISIT?NO BARRIERS TO LEARNING?NO HEARING IMPAIRED?NO VISION IMPAIRED?YES GLASSES FOR READING :CORRECTIVE LENSES COGNITIVELY IMPAIRED?NO READINESS TO LEARN?YES LEARNING PREFERENCES?NO LEARNING CAPABILITIES PRESENT?YES EMOTIONAL BARRIERS?NO SPECIAL DEVICES?NO BUSINESS ACCOUNT EXECUTIVE NEEDED?NO DOMESTIC VIOLENCE DO YOU FEEL SAFE IN YOUR ENVIRONMENT?YES - PFS REFERRAL NEEDED?NO CLERGY REFERRAL NEEDED?NO PUBLIC HEALTH REFERRAL NEEDED?NO WAS THE PROVIDER NOTIFIED OF ANY PERTINENT INFO?YES HAS THE PATIENT BEEN EDUCATED REGARDING HIS/HER PLAN OF CARE?YES HAS THE PATIENT BEEN EDUCATED REGARDING PAIN, THE RISK FOR PAIN, THE IMPORTANCE OF EFFECTIVE PAIN MANAGEMENT, AND THE PAIN ASSESSMENT PROCESS?YES ADVANCE DIRECTIVE ADVANCE DIRECTIVE DISCUSSED WITH PATIENT:YES HCP - HUSSAIN HAILE [phone] OR ARMOND HAILE [phone] REVIEW OF SYSTEMS CONSTITUTIONAL: ANY RECENT FEVER NO . CHILLS NO . WEIGHT CHANGE OF UNKNOWN REASONS NO . GASTROENTEROLOGY: NEW UNEXPLAINABLE CHANGES IN BOWEL CONTROL NO . CONSTIPATION NO . GENITOURINARY: ANY NEW CHANGE IN BLADDER CONTROL? NO . NEUROLOGY: NEW ONSET DIZZINESS OR NEUROLOGICAL CHANGES NOT MENTIONED NO . NEW NUMBNESS OR PAIN PATTERNS NOT MENTIONED AND PERTINENT TO TODAY'S VISIT NO . CARDIOLOGY: NEW CHEST PRESSURE NO . PATIENT DENIES NO . RESPIRATORY: UNEXPLAINABLE COUGH NO . NEW SHORTNESS OF BREATH NO . VITAL SIGNS WT 135.2 LBS, HT 63 IN, BMI 23.95 INDEX, BP 122/72 MM HG, HR 109 /MIN, RR 18 /MIN, TEMP 96.0 F, OXYGEN SAT % 96%, SAFE IN ENV? (Y/N) YES, NA INITIALS MS 14:32T.CLAY ECHEVARRIA. EXAMINATION GENERAL EXAMINATION: GENERALAWAKE,ALERT ,PLEAASANT . PSYCHAFFECT NORMAL . LUNGS:LUNG RAMIREZ ARE CLEAR TO AUSCULTATION BILATERALLY. GOOD MOVEMENT OF AIR . HEART:S1, S2 IN A REGULAR RATE AND RHYTHM. NO SIGNIFICANT MURMURS, RUBS OR GALLOPS NOTED . ASSESSMENTS CHRONIC PANCREATITIS, UNSPECIFIED PANCREATITIS TYPE - K86.1 CHRONIC PRESCRIPTION OPIATE USE - Z79.891 TREATMENT CHRONIC PANCREATITIS, UNSPECIFIED PANCREATITIS TYPE NOTES: ISTOP REGISTRY REVIEWED AND DEMONSTRATES COMPLLIANCE. BRINGS IN MEDICATIONS WHICH IS APPROPRIATE FOR WHAT WAS DISPENSED. RECENT URINE TOXICOLOGY REVIEWED. NO UNAUTHORIZED MEDICATIONS. NO ILLICIT SUBSTANCES AND PRESCRIBED MEDICATIONS WERE PRESENT. , RISKS OF NARCOTIC/OPIOD MEDICATIONS INCLUDES BUT IS NOT LIMITED TO RISK OF DEPENDANCE/DEVELOPMENT OF ADDICTION, MOOD DISTURBANCE AND DEPRESSION, OSTEOPOROSIS, HORMONAL AND LABIDAL CHANGES, RESPIRATORY DEPRESSION AND . PATIENT IS ADVISED NOT TO DRIVE OR DRINK ALCOHOL WHILE ON THESE MEDICATIONS. OTHERS INCREASE HYDROMORPHONE HCL ER TABLET EXTENDED RELEASE 24 HOUR, 16 MG, 1 TABLET, ORALLY, ONCE A DAY MDD1, 30 DAYS, 30 DISPOSITION & COMMUNICATION FOLLOW UP 3 MONTHS (REASON: UTOX /MED MGMNT/CHECK ON DILAUDID INCREASE) ELECTRONICALLY SIGNED BY STEPHAN CALLE ON 04/17/2020 AT 10:41 AM EST DISCLAIMER : THIS IS A VISIT SUMMARY EXTRACTED FROM THE [employer] CHART. IT IS NOT A COPY OF THE [employer] PROGRESS NOTE. MTDD
== END ==
LOC: M PAIN 14:15
PROVIDERS: ATTEND Nurse Practitioner Family
DX: K86.1 Other chronic pancreatitis (principal); G89.29 Other chronic pain; F17.210 Nicotine dependence, cigarettes, uncomplicated; Z86.59 Personal history of other mental and behavioral disorders; Z88.0 Allergy status to penicillin; Z88.5 Allergy status to narcotic agent; Z88.8 Allergy status to other drugs, medicaments and biological substances; Z79.891 Long term (current) use of opiate analgesic; Z79.899 Other long term (current) drug therapy

== ENCOUNTER → 2020-07-22 | Outpatient (CLI) | payer BC, OTHER ==
--- NOTE | 2020-07-24 23:40 | ECWPNPC ---
PATIENT NAME: MEL BOURGEOIS : 1965 GENDER: FEMALE VISIT DATE: 07/22/2020 DISCHARGE DATE: 07/22/20 1528 VISIT LOCKED DATE TIME: PHYSICIAN: ZACK BOLAND PHYSICIAN PAGER NO: ACTIVE RESOURCE: ZACK BOLAND REASON FOR APPOINTMENT 1. UTOX /MED MGMNT/CHECK ON DILAUDID INCREASE HISTORY OF PRESENT ILLNESS DEPRESSION SCREENING: PHQ-2 (2015 EDITION) LITTLE INTEREST OR PLEASURE IN DOING THINGS?NOT AT ALL FEELING DOWN, DEPRESSED, OR HOPELESS?NOT AT ALL TOTAL SCORE0 GENERAL: HERE FOR ROUTINE FOLLOW-UP AND MEDICATION MANAGEMENT OF CHRONIC PANCREATITIS WITH HISTORY OF CYSTIC PROBLEMS OF THE PANCREAS. CURRENT CHRONIC PAIN MEDICATION IS HELPFUL AND DENIES SIDE EFFECTS. AT HER LAST CLINIC VISIT WE INCREASED LONG-ACTING HYDROMORPHONE TO 16 MG. SHE REPORTS SIGNIFICANT REDUCTION IN PAIN AND LESS NEED TO TAKE SHORT ACTING HYDROMORPHONE 8 MG. HAS HAD A COUPLE OF EPISODES WHEN HER PAIN IS OUT OF CONTROL TO THE POINT WHERE SHE IS BEDRIDDEN OVER THE PAST FEW MONTHS. -. FALL RISK SCREENING: SCREENING : NO FALLS REPORTED IN THE LAST YEAR. PAIN SCREENING: PATIENT HAS A COMPLAINT OF ACUTE OR CHRONIC PAIN :YES LOCATION OF PAIN:ABDOMEN INTENSITY OF PAIN (SCALE OF 1 TO 10):4 WHAT DOES YOUR PAIN FEEL LIKE:CONTINOUS, OTHER PRESSURE DURATION:CONTINOUS, CONSTANT, ALL DAY PAIN IS INCREASED BY:ACTIVITIES, OTHERS LIFTING PAIN IS DECREASED BY:USE OF PAIN MEDICATIONS, OTHERS LAYING DOWN ON UR LEFT SIDE NURSING NOTE: -. PAIN CENTER INTAKE QUESTIONS: DO YOU HAVE A HISTORY OF MRSA? :NO DO YOU TAKE A BLOOD THINNERS? :NO DO YOU HAVE ANY BLEEDING DISORDERS? :NO ANY NEW NUMBNESS OR WEAKNESS IN YOUR LEGS OR ARMS? :NO ANY PACEMAKER,DEFIBRILLATOR, OR DORSAL COLUMN STIMULATOR? :NO DO YOU HAVE ANY RASHES OR OPEN SORES? :NO PSORIASIS ARE YOU ALLERGIC TO IV DYE? :NO ARE YOU DIABETIC? :NO ANY NEW PROBLEMS WITH YOUR MEDICATIONS? :NO HAVE YOU RECEIVED A VACCINE IN THE PAST 30 DAYS? :NO DO YOU PLAN TO RECEIVE A VACCINE IN THE NEXT 21 DAYS? :NO DO YOU NEED ANY PRESCRIPTION? :NO DO YOU TAKE ANY IMMUNOSUPPRESSIVE MEDICATIONS? :NO IS THERE A CHANCE YOU COULD BE ? :NO ARE YOU BREAST FEEDING? :NO CURRENT MEDICATIONS TAKING VOLTAREN 1 % GEL APPLY 1 G TO EACH HAND TRANSDERMAL 4 TIMES A DAY TAKING ZOFRAN ODT 4 MG TABLET DISINTEGRATING 1 TABLET ON THE TONGUE AND ALLOW TO DISSOLVE ORALLY EVERY 8 HRS NEEDED FOR N/V TAKING SCOPOLAMINE 1 MG/3DAYS PATCH 72 HOUR 1 PATCH TO SKIN NEEDED TRANSDERMAL 1 PATCH Q 3 DAYS TAKING CYMBALTA 60 MG CAPSULE DELAYED RELEASE PARTICLES 1 CAPSULE ORALLY ONCE A DAY TAKING ZOFRAN 8 MG ODT 1 TABLET ORALLY EVERY 8 HOURS NEEDED FOR NAUSEA TAKING ONDANSETRON 8 MG TABLET DISINTEGRATING DISSOLVE 1 TABLET UNDER THE TONGUE EVERY 8 HOURS NEEDED FOR NAUSEA. TAKING BETAMETHASONE DIPROPIONATE 0.05 % OINTMENT 1 APPLICATION EXTERNALLY TWICE A DAY WHEN FLARED TAKING TRIAMCINOLONE ACETONIDE 0.1 % OINTMENT 1 APPLICATION EXTERNALLY TWICE A DAY WHEN IMPROVED TAKING DILAUDID 8 MG TABLET 1/2 TO 1 TAB ORALLY Q8-12 HR PRN PAIN MDD2 TAKING HYDROMORPHONE HCL ER 16 MG TABLET EXTENDED RELEASE 24 HOUR 1 TABLET ORALLY ONCE A DAY MDD1 NOT-TAKING IXEKIZUMAB 80 MG/ML SOLUTION PREFILLED SYRINGE 1 ML SUBCUTANEOUS EVERY 2 WEEKS, NOTES: DUPLICATE NOT-TAKING DILAUDID 4 MG TABLET 1 TO 1 1/2 TAB ORALLY Q8H PRN MDD3 NOT-TAKING ZANTAC 150 MG TABLET ONE HALF ORALLY DIRECTED NEEDED NOT-TAKING CLARINEX-D 24 HOUR 5-240 MG TABLET EXTENDED RELEASE 24 HOUR ORALLY DAILY NEEDED NOT-TAKING PSEUDOEPHEDRINE HCL 30 MG TABLET 1 - 2 TABLETS ORALLY EVERY 6 HOURS NEEDED FOR CONGESTION NOT-TAKING COMPAZINE 25MG RECTAL SUPPOSITORY RECTALLY EVERY 12 HOURS NEEDED FOR INTRACTABLE NAUSEA/VOMITING NOT-TAKING BETAMETHASONE DIPROPIONATE 0.05 % OINTMENT 1 APPLICATION EXTERNALLY TWICE A DAY NOT-TAKING IXEKIZUMAB 80 MG/ML SOLUTION PREFILLED SYRINGE 2 ML SUBCUTANEOUS ONCE TIME TO BEGIN NOT-TAKING FLUTICASONE PROPIONATE 50 MCG/ACT SUSPENSION 1 SPRAY IN EACH NOSTRIL NASALLY ONCE A DAY NOT-TAKING AZELASTINE HCL 0.05 % SOLUTION 1 DROP INTO AFFECTED EYE OPHTHALMIC TWICE A DAY NOT-TAKING HYDROMORPHONE HCL ER 12 MG TABLET ER 24 HOUR ABUSE-DETERRENT 1 TAB ORALLY ONCE A DAY FOR CHRONIC PAIN MDD1 NOT-TAKING CYMBALTA 20 MG CAPSULE DELAYED RELEASE PARTICLES 1 CAPSULE ORALLY IN AM MEDICATION LIST REVIEWED AND RECONCILED WITH THE PATIENT PAST MEDICAL HISTORY OVERACTIVE BLADDER PSORIASIS IRRITABLE BOWEL SYNDROME H/O ENDOMETRIOSIS DEPRESSION FAMILIAL ESSENTIAL TREMORS DOES NOT DRINK - HOSPITAL RECORD IS INCORRECT (PROB AUTOIMMUNE) CHRONIC PANCREATITIS/PANCREATIC DUCT STRICTURES, S/P CBD AND PANCREATIC DUCT STENTS [id number]; 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, FOLLOWED UR CHRONIC ABD PAIN--SEES PAIN CLINIC IDENTIFIES TABATHA HAILE HCP HX ALOPECIA AREATA SCALP ALLERGIES PENICILLIN V POTASSIUM: EXACERBATES PSORIASIS - ALLERGY CODEINE SULFATE: VOMITING - SIDE EFFECTS CYMBALTA: DIZZINESS, LISTED TO THE LEFT - SIDE EFFECTS PHENERGAN: MADE HER ITCH ALL OVER - SIDE EFFECTS NUCYNTA: VOMITING - SIDE EFFECTS REGLAN: INCREASED ABD PAIN/CRAMPING - CONTRAINDICATION SOCIAL HISTORY GENERAL: TOBACCO USE ARE YOU A:CURRENT SMOKER ARE YOU INTERESTED IN QUITTING?NOT READY TO QUIT COUNSELED THE PATIENT ON SMOKING EFFECTS, EDUCATION [id number]/09/2021 HOW MANY CIGARETTES A DAY DO YOU SMOKE?11-20 HOW SOON AFTER YOU WAKE UP DO YOU SMOKE YOUR FIRST CIGARETTE?AFTER 60 MIN HOW OFTEN DO YOU SMOKE CIGARETTES?SOME DAYS, BUT NOT EVERY DAY PATIENT COUNSELED ON THE DANGERS OF TOBACCO USE AND URGED TO QUIT:01/29/2020 LATEX QUESTIONNAIRE LATEX ALLERGY : HAVE YOU EVER DEVELOPED ANY TYPE OF REACTION AFTER HANDLING LATEX PRODUCTS SUCH RUBBER GLOVES, CONDOMS, DIAPHRAGMS, BALLOONS, SOCKS, OR UNDERWEAR?NO LATEX ALLERGY : HAVE YOU EVER DEVELOPED ANY TYPE OF REACTION DURING OR AFTER DENTAL APPOINTMENT, VAGINAL/RECTAL EXAMINATION, SURGICAL PROCEDURE, OR ANY OTHER EXPOSURE?NO DATE ASKED : 04/10/2020 LATEX RISK : HAVE YOU EVER HAD ANY DIFFICULTY BREATHING OR HIVES AFTER EATING OR HANDLING ANY FRUITS, OR VEGETABLES; SUCH KIWI, BANANAS, STONE FRUITS, OR CHESTNUTSNO LATEX RISK : DO YOU HAVE A PREVIOUS PERSONAL HISTORY OF MORE THAN NINE SURGERIES, SPINA BIFIDA, OR REPEATED CATHERIZATIONS? NO LATEX RISK : ARE YOU FREQUENTLY EXPOSED TO LATEX PRODUCTS IN YOUR OCCUPATION?NO ALCOHOL USE: YES,ONCE A YEAR. ALCOHOL SCREENING DID YOU HAVE A DRINK CONTAINING ALCOHOL IN THE PAST YEAR?NO POINTS0 INTERPRETATIONNEGATIVE RECREATIONAL DRUG USE DRUG USE?NO RESTORATIONISM [id number] JAINISM LANGUAGE LANGUAGES SPOKEN:KINYARWANDA LEARNING BARRIERS / SPECIAL NEEDS CHANGE FROM LAST VISIT?NO BARRIERS TO LEARNING?NO HEARING IMPAIRED?NO VISION IMPAIRED?YES GLASSES FOR READING :CORRECTIVE LENSES COGNITIVELY IMPAIRED?NO READINESS TO LEARN?YES LEARNING PREFERENCES?NO LEARNING CAPABILITIES PRESENT?YES EMOTIONAL BARRIERS?NO SPECIAL DEVICES?NO HVAC DESIGN ENGINEER NEEDED?NO DOMESTIC VIOLENCE DO YOU FEEL SAFE IN YOUR ENVIRONMENT?YES - PFS REFERRAL NEEDED?NO CLERGY REFERRAL NEEDED?NO PUBLIC HEALTH REFERRAL NEEDED?NO WAS THE PROVIDER NOTIFIED OF ANY PERTINENT INFO?YES HAS THE PATIENT BEEN EDUCATED REGARDING HIS/HER PLAN OF CARE?YES HAS THE PATIENT BEEN EDUCATED REGARDING PAIN, THE RISK FOR PAIN, THE IMPORTANCE OF EFFECTIVE PAIN MANAGEMENT, AND THE PAIN ASSESSMENT PROCESS?YES ADVANCE DIRECTIVE ADVANCE DIRECTIVE DISCUSSED WITH PATIENT:YES HCP - HUSSAIN HAILE [phone] OR ARMOND HAILE [phone] REVIEW OF SYSTEMS CONSTITUTIONAL: ANY RECENT FEVER NO . CHILLS NO . WEIGHT CHANGE OF UNKNOWN REASONS NO . GASTROENTEROLOGY: NEW UNEXPLAINABLE CHANGES IN BOWEL CONTROL NO . CONSTIPATION NO . GENITOURINARY: ANY NEW CHANGE IN BLADDER CONTROL? NO . NEUROLOGY: NEW ONSET DIZZINESS OR NEUROLOGICAL CHANGES NOT MENTIONED NO . NEW NUMBNESS OR PAIN PATTERNS NOT MENTIONED AND PERTINENT TO TODAY'S VISIT NO . CARDIOLOGY: NEW CHEST PRESSURE NO . PATIENT DENIES NO . RESPIRATORY: UNEXPLAINABLE COUGH NO . NEW SHORTNESS OF BREATH NO . VITAL SIGNS WT 130.6 LBS, HT 63 IN, BMI 23.13 INDEX, BP 129/79 MM HG, HR 114 /MIN, RR 18 /MIN, TEMP 97.8 F, OXYGEN SAT % 96%, SAFE IN ENV? (Y/N) YES, NA INITIALS SC 14:50T.CLAY ECHEVARRIA. EXAMINATION GENERAL EXAMINATION: GENERALAWAKE,ALERT ,PLEAASANT . PSYCHAFFECT NORMAL . LUNGS:LUNG RAMIREZ ARE CLEAR TO AUSCULTATION BILATERALLY. GOOD MOVEMENT OF AIR . HEART:S1, S2 IN A REGULAR RATE AND RHYTHM. NO SIGNIFICANT MURMURS, RUBS OR GALLOPS NOTED . ASSESSMENTS CHRONIC PRESCRIPTION OPIATE USE - Z79.891 (PRIMARY) CHRONIC PANCREATITIS, UNSPECIFIED PANCREATITIS TYPE - K86.1 TREATMENT CHRONIC PRESCRIPTION OPIATE USE CONTINUE CYMBALTA CAPSULE DELAYED RELEASE PARTICLES, 60 MG, 1 CAPSULE, ORALLY, ONCE A DAY CONTINUE DILAUDID TABLET, 8 MG, 1/2 TO 1 TAB, ORALLY, Q8-12 HR PRN PAIN MDD2 CONTINUE HYDROMORPHONE HCL ER TABLET EXTENDED RELEASE 24 HOUR, 16 MG, 1 TABLET, ORALLY, ONCE A DAY MDD1 LAB: URINE TEST GROUP GAETANO WILLIAMSON 07/22/2020 3:25:59 PM > LAST DOSE: DILAUDID 07/21/2020 @1PM, HYDROMORPHONE 07/21/2020 @8:30PM PROCEDURE CODES FA211 ESTABILISHED PATIENT [facility] CHARGE DISPOSITION & COMMUNICATION FOLLOW UP 3 MONTHS (REASON: MED MGMNT/REVIEW UTOX) ELECTRONICALLY SIGNED BY STEPHAN CALLE ON 07/24/2020 AT 09:01 AM EDT DISCLAIMER : THIS IS A VISIT SUMMARY EXTRACTED FROM THE [employer] CHART. IT IS NOT A COPY OF THE [employer] PROGRESS NOTE. MTDD
== END ==
LOC: M PAIN 14:45
PROVIDERS: ATTEND Nurse Practitioner Family
DX: K86.1 Other chronic pancreatitis (principal); F17.210 Nicotine dependence, cigarettes, uncomplicated; Z86.59 Personal history of other mental and behavioral disorders; Z88.0 Allergy status to penicillin; Z88.5 Allergy status to narcotic agent; Z88.8 Allergy status to other drugs, medicaments and biological substances; Z79.891 Long term (current) use of opiate analgesic; Z79.899 Other long term (current) drug therapy

== ENCOUNTER → 2020-08-06 | Outpatient (CLI) | payer BC, OTHER | LOC: M LAB 14:02 | PROVIDERS: ATTEND Physician Assistant | DX: L40.9 Psoriasis, unspecified (principal) ==

== ENCOUNTER 2020-08-19 18:10 | Emergency (ER) | payer BC, OTHER ==
[~2020-08-19] VITALS: Ht 160 cm; Wt 56.8 kg
[2020-08-19] MEDS ORDERED: PANTOPRAZOLE 40MG VIAL (C9113 PER 1) IV ONE (19:00)
[2020-08-19] MEDS ORDERED: NS 1,000 ML IV ONE ×2 (19:00→19:40)
[2020-08-19] MEDS ORDERED: ONDANSETRON 4MG/2ML VIAL IV ONE (19:00)
[2020-08-19] MEDS ORDERED: KETOROLAC 30 MG/ML 1ML VIAL IV ONE (19:00)
[2020-08-19 19:13] LABS: BASO # 0.1 10^3/uL (0.0-0.2); BASO % 0.6 % (0.0-1.0); EOS % 0.1 % (0.0-3.0); HEMATOCRIT 53.1 % (36.0-47.0); HEMOGLOBIN 18.4 g/dl (12.0-15.5); LYMPH % 18.3 % (24.0-44.0); MEAN CORPUSCULAR HEMOGLOBIN 33.3 pg (27.0-33.0); MEAN CORPUSCULAR HGB CONC 34.7 g/dl (32.0-36.5); MEAN CORPUSCULAR VOLUME 96.2 fl (80.0-96.0); MONO # 0.6 10^3/uL (0.0-0.8); MONO % 5.2 % (2.0-8.0); NEUTROPHILS # 8.1 10^3/uL (1.5-8.5); NEUTROPHILS % 75.2 % (36.0-66.0); PLATELET COUNT, AUTOMATED 216 10^3/uL (150-450); RED BLOOD COUNT 5.52 10^6/uL (4.00-5.40); WHITE BLOOD COUNT 10.7 10^3/uL (4.0-10.0)
[2020-08-19 19:41] LABS: ALBUMIN 3.7 GM/DL (3.2-5.2); ALT/SGPT 86 U/L (12-78); BILIRUBIN,DIRECT 0.3 MG/DL (0.0-0.2); BILIRUBIN,TOTAL 0.9 MG/DL (0.2-1.0); ETHYL ALCOHOL (ETHANOL) < 0.003 % (0.000-0.010); LIPASE 38 U/L (73-393); TOTAL PROTEIN 7.7 GM/DL (6.4-8.2)
--- NOTE | 2020-08-19 19:51 | REP ---
INDICATION: Abdominal Pain. COMPARISON: Comparison radiograph September 13, 2013.. TECHNIQUE: Three views including upright chest radiograph, right-sided decubitus view of the upper abdomen, and KUB.. FINDINGS: Upright chest radiograph is unremarkable. There is no evidence of infiltrate or free subdiaphragmatic air. Heart size is normal. Pulmonary vasculature is not increased. Pleural angles are sharp. Supine and right side up decubitus views of the abdomen show no evidence of free air. Bowel gas pattern is normal. There are clips in right upper quadrant. Psoas margins and flank stripes are intact. No mass or organomegaly is seen. Phleboliths are noted in the pelvis. Monitoring electrodes visible over the chest and abdomen. There appears to be a small, 3 mm calcification projecting at the upper pole of the right kidney. IMPRESSION: Intrarenal 3 mm calculus upper pole right kidney. Clips in right upper quadrant. Normal bowel gas pattern. No active disease in the chest. No evidence of free intraperitoneal air.. <Electronically signed by Jelani Triplett > 08/19/201947
[2020-08-19] MEDS ORDERED: METOCLOPRAMIDE INJ 10MG/2ML VIAL (J2765 PER 1) IV ONE (20:00)
[2020-08-19] MEDS ORDERED: HALOPERIDOL 5MG/ML VIAL (J1630 PER 1) IV ONE (20:00)
[2020-08-19] MEDS ORDERED: HYDROMORPHONE HCL 0.5 MG/ 0.5 ML SYRINGE (J1170 PER 1) IV ONE (21:00)
[2020-08-19 22:15] VITALS: BP 178/89
[2020-08-19 22:34] LABS: BLOOD UREA NITROGEN 9 MG/DL (7-18); CALCIUM LEVEL 9.4 MG/DL (8.5-10.1); CARBON DIOXIDE LEVEL 25 MEQ/L (21-32); CHLORIDE LEVEL 100 MEQ/L (98-107); CREATININE FOR GFR 0.72 MG/DL (0.55-1.30); GLOMERULAR FILTRATION RATE > 60.0 (>51); GLUCOSE, FASTING 170 MG/DL (70-100); POTASSIUM SERUM 3.8 MEQ/L (3.5-5.1); SODIUM LEVEL 136 MEQ/L (136-145)
== END 2020-08-19 22:45 | disposition home or self-care (01) ==
LOC: M ED 18:10
DX: R10.9 Unspecified abdominal pain (principal); G89.29 Other chronic pain; R19.7 Diarrhea, unspecified; R11.2 Nausea with vomiting, unspecified; Z79.899 Other long term (current) drug therapy; Z87.891 Personal history of nicotine dependence; Z88.0 Allergy status to penicillin; Z88.6 Allergy status to analgesic agent
CPT/HCPCS: 36415; 74021; 80048; 80076; 82077; 83690; 85025; 96361; 96374; 96375; 99284; C9113; J1170; J1630; J1885; J2405; J2765

== ENCOUNTER → 2020-12-24 | Outpatient (CLI) | payer BC, OTHER | LOC: M PAIN 14:30 | PROVIDERS: ATTEND Anesthesiology | DX: R10.9 Unspecified abdominal pain (principal); M79.2 Neuralgia and neuritis, unspecified; F17.210 Nicotine dependence, cigarettes, uncomplicated; Z86.59 Personal history of other mental and behavioral disorders; Z88.0 Allergy status to penicillin; Z88.5 Allergy status to narcotic agent; Z88.8 Allergy status to other drugs, medicaments and biological substances; Z79.891 Long term (current) use of opiate analgesic; Z79.899 Other long term (current) drug therapy ==

== ENCOUNTER → 2021-01-14 | Outpatient (CLI) | payer BC, OTHER | LOC: M PAIN 15:15 | PROVIDERS: ATTEND Anesthesiology | DX: R10.9 Unspecified abdominal pain (principal); M79.2 Neuralgia and neuritis, unspecified; K85.90 Acute pancreatitis without necrosis or infection, unspecified; F17.210 Nicotine dependence, cigarettes, uncomplicated; Z86.59 Personal history of other mental and behavioral disorders; Z88.0 Allergy status to penicillin; Z88.5 Allergy status to narcotic agent; Z88.8 Allergy status to other drugs, medicaments and biological substances; Z79.891 Long term (current) use of opiate analgesic; Z79.899 Other long term (current) drug therapy ==

== ENCOUNTER → 2021-05-25 | Outpatient (CLI) | payer BC, OTHER | LOC: M PAIN 14:30 | PROVIDERS: ATTEND Nurse Practitioner Family | DX: K86.1 Other chronic pancreatitis (principal); R10.10 Upper abdominal pain, unspecified; G89.29 Other chronic pain; F17.210 Nicotine dependence, cigarettes, uncomplicated; Z86.59 Personal history of other mental and behavioral disorders; Z88.0 Allergy status to penicillin; Z88.5 Allergy status to narcotic agent; Z88.8 Allergy status to other drugs, medicaments and biological substances; Z79.891 Long term (current) use of opiate analgesic; Z79.899 Other long term (current) drug therapy ==

== ENCOUNTER → 2021-08-12 | Outpatient (CLI) | payer BC, OTHER | LOC: M PLAIMG 13:33 | PROVIDERS: ATTEND Anesthesiology | DX: R10.9 Unspecified abdominal pain (principal) ==

== ENCOUNTER → 2021-09-06 | Outpatient (CLI) | payer BC, OTHER | LOC: M PAIN 14:15 | PROVIDERS: ATTEND Nurse Practitioner Family | DX: K86.1 Other chronic pancreatitis (principal); F17.210 Nicotine dependence, cigarettes, uncomplicated; Z86.59 Personal history of other mental and behavioral disorders; Z88.0 Allergy status to penicillin; Z88.5 Allergy status to narcotic agent; Z88.8 Allergy status to other drugs, medicaments and biological substances; Z79.891 Long term (current) use of opiate analgesic; Z79.899 Other long term (current) drug therapy ==

== ENCOUNTER → 2021-09-29 | Outpatient (REF) | payer OTHER ==
[2021-09-29 17:13] LABS: HEMATOCRIT 50.7 % (36.0-47.0); HEMOGLOBIN 16.7 g/dl (12.0-15.5); MEAN CORPUSCULAR HEMOGLOBIN 32.4 pg (27.0-33.0); MEAN CORPUSCULAR HGB CONC 32.9 g/dl (32.0-36.5); MEAN CORPUSCULAR VOLUME 98.4 fl (80.0-96.0); PLATELET COUNT, AUTOMATED 237 10^3/uL (150-450); RED BLOOD COUNT 5.15 10^6/uL (4.00-5.40); WHITE BLOOD COUNT 9.1 10^3/uL (4.0-10.0)
[2021-09-29 17:56] LABS: ALBUMIN 3.5 GM/DL (3.2-5.2); ALT/SGPT 46 U/L (12-78); BILIRUBIN,TOTAL 0.6 MG/DL (0.2-1.0); BLOOD UREA NITROGEN 7 MG/DL (7-18); CALCIUM LEVEL 9.3 MG/DL (8.5-10.1); CARBON DIOXIDE LEVEL 27 MEQ/L (21-32); CHLORIDE LEVEL 102 MEQ/L (98-107); CREATININE FOR GFR 0.59 MG/DL (0.55-1.30); FREE T4 0.91 NG/DL (0.76-1.46); GLOMERULAR FILTRATION RATE > 60.0 (>51); GLUCOSE, FASTING 110 MG/DL (70-100); POTASSIUM SERUM 3.5 MEQ/L (3.5-5.1); SODIUM LEVEL 134 MEQ/L (136-145); THYROID STIMULATING HORMONE 0.779 uIU/ML (0.358-3.740); TOTAL PROTEIN 7.3 GM/DL (6.4-8.2)
[2021-09-29 18:32] LABS: VITAMIN B12 LEVEL 568 PG/ML (247-911)
== END ==
LOC: M SFHCADAM 11:48
PROVIDERS: ATTEND Family Medicine
DX: K86.1 Other chronic pancreatitis (principal); Z79.891 Long term (current) use of opiate analgesic; F32.9 Major depressive disorder, single episode, unspecified; M79.2 Neuralgia and neuritis, unspecified

== ENCOUNTER → 2021-09-30 | Outpatient (CLI) | payer OTHER | LOC: M PAIN 14:30 | PROVIDERS: ATTEND Nurse Practitioner Family | DX: Z79.891 Long term (current) use of opiate analgesic (principal) ==

== ENCOUNTER → 2021-12-24 | Outpatient (CLI) | payer BC, OTHER | LOC: M PAIN 14:15 | PROVIDERS: ATTEND Nurse Practitioner Family | DX: K86.1 Other chronic pancreatitis (principal); F17.210 Nicotine dependence, cigarettes, uncomplicated; Z86.59 Personal history of other mental and behavioral disorders; Z88.0 Allergy status to penicillin; Z88.5 Allergy status to narcotic agent; Z88.8 Allergy status to other drugs, medicaments and biological substances; Z79.891 Long term (current) use of opiate analgesic; Z79.899 Other long term (current) drug therapy ==

== ENCOUNTER → 2022-04-21 | Outpatient (CLI) | payer BC, OTHER | LOC: M PAIN 16:45 | PROVIDERS: ATTEND Nurse Practitioner Family | DX: K86.1 Other chronic pancreatitis (principal); F17.210 Nicotine dependence, cigarettes, uncomplicated; Z86.59 Personal history of other mental and behavioral disorders; Z88.0 Allergy status to penicillin; Z88.5 Allergy status to narcotic agent; Z88.8 Allergy status to other drugs, medicaments and biological substances; Z79.891 Long term (current) use of opiate analgesic; Z79.899 Other long term (current) drug therapy ==

== ENCOUNTER → 2022-05-10 | Outpatient (CLI) | payer BC, OTHER | LOC: M PAIN 14:45 | PROVIDERS: ATTEND Nurse Practitioner Family | DX: K86.1 Other chronic pancreatitis (principal); F17.210 Nicotine dependence, cigarettes, uncomplicated; Z86.59 Personal history of other mental and behavioral disorders; Z88.0 Allergy status to penicillin; Z88.5 Allergy status to narcotic agent; Z88.8 Allergy status to other drugs, medicaments and biological substances; Z79.891 Long term (current) use of opiate analgesic; Z79.899 Other long term (current) drug therapy ==

== ENCOUNTER → 2022-05-20 | Outpatient (REF) | payer OTHER ==
[2022-05-20 17:24] LABS: HEMATOCRIT 48.3 % (36.0-47.0); HEMOGLOBIN 16.1 g/dl (12.0-15.5); MEAN CORPUSCULAR HEMOGLOBIN 32.2 pg (27.0-33.0); MEAN CORPUSCULAR HGB CONC 33.3 g/dl (32.0-36.5); MEAN CORPUSCULAR VOLUME 96.6 fl (80.0-96.0); PLATELET COUNT, AUTOMATED 212 10^3/uL (150-450); WHITE BLOOD COUNT 8.5 10^3/uL (4.0-10.0)
[2022-05-20 17:59] LABS: ALBUMIN 3.5 G/DL (3.2-5.2); ALKALINE PHOSPHATASE 146 U/L (46-116); ALT/SGPT 45 U/L (7.0-40); AST/SGOT 34 U/L (<34); BILIRUBIN,TOTAL 0.3 MG/DL (0.3-1.2); BLOOD UREA NITROGEN 8 MG/DL (9-23); CALCIUM LEVEL 8.9 MG/DL (8.5-10.1); CARBON DIOXIDE LEVEL 28 MMOL/L (20-31); CHLORIDE LEVEL 104 MMOL/L (98-107); CREATININE FOR GFR 0.58 MG/DL (0.55-1.30); GLOMERULAR FILTRATION RATE > 60.0 (>51); GLUCOSE, FASTING 93 MG/DL (60-100); POTASSIUM SERUM 3.8 MMOL/L (3.5-5.1); SODIUM LEVEL 138 MMOL/L (136-145)
[2022-05-20 18:02] LABS: FREE T4 0.84 NG/DL (0.89-1.76)
[2022-05-20 18:52] LABS: HEMOGLOBIN A1c 5.9 % (4.0-6.0)
== END ==
LOC: M SFHCADAM 14:30
PROVIDERS: ATTEND Family Medicine
DX: F32.9 Major depressive disorder, single episode, unspecified (principal); K86.1 Other chronic pancreatitis; Z13.1 Encounter for screening for diabetes mellitus; L40.9 Psoriasis, unspecified

== ENCOUNTER → 2022-06-07 | Outpatient (CLI) | payer BC, OTHER ==
[~2022-06-07] MED LIST changes: +COSE1INJ4
== END ==
LOC: M PAIN 14:45
PROVIDERS: ATTEND Nurse Practitioner Family
DX: K86.1 Other chronic pancreatitis (principal); G89.29 Other chronic pain; F17.210 Nicotine dependence, cigarettes, uncomplicated; Z86.59 Personal history of other mental and behavioral disorders; Z88.0 Allergy status to penicillin; Z88.5 Allergy status to narcotic agent; Z88.8 Allergy status to other drugs, medicaments and biological substances; Z79.899 Other long term (current) drug therapy

== ENCOUNTER 2022-06-08 18:07 | Emergency (ER) | payer BC, OTHER ==
[~2022-06-08] VITALS: Ht 160 cm; Wt 50.0 kg
[~2022-06-08 18:07] MED LIST changes: -COSE1INJ4
[2022-06-08] MEDS ORDERED: COSE1INJ4 (18:18)
[2022-06-08 18:56] LABS: BASO # 0.1 10^3/uL (0.0-0.2); BASO % 0.6 % (0.0-1.0); EOS % 0.1 % (0.0-3.0); HEMATOCRIT 53.4 % (36.0-47.0); HEMOGLOBIN 18.2 g/dl (12.0-15.5); LYMPH # 2.2 10^3/uL (1.5-5.0); LYMPH % 15.4 % (24.0-44.0); MEAN CORPUSCULAR HEMOGLOBIN 31.8 pg (27.0-33.0); MEAN CORPUSCULAR HGB CONC 34.1 g/dl (32.0-36.5); MEAN CORPUSCULAR VOLUME 93.4 fl (80.0-96.0); MONO # 0.6 10^3/uL (0.0-0.8); MONO % 4.1 % (2.0-8.0); NEUTROPHILS # 11.2 10^3/uL (1.5-8.5); NEUTROPHILS % 79.4 % (36.0-66.0); PLATELET COUNT, AUTOMATED 250 10^3/uL (150-450); RED BLOOD COUNT 5.72 10^6/uL (4.00-5.40)
[2022-06-08 19:17] LABS: LIPASE 20 U/L (12-53)
[2022-06-08 19:19] LABS: ALBUMIN 4.1 G/DL (3.2-5.2); ALKALINE PHOSPHATASE 156 U/L (46-116); ALT/SGPT 102 U/L (7.0-40); AST/SGOT 54 U/L (<34); BILIRUBIN,DIRECT 0.3 MG/DL (<0.4); BILIRUBIN,TOTAL 0.9 MG/DL (0.3-1.2); BLOOD UREA NITROGEN 12 MG/DL (9-23); CALCIUM LEVEL 9.7 MG/DL (8.5-10.1); CARBON DIOXIDE LEVEL 25 MMOL/L (20-31); CHLORIDE LEVEL 96 MMOL/L (98-107); CREATININE FOR GFR 0.42 MG/DL (0.55-1.30); GLOMERULAR FILTRATION RATE > 60.0 (>51); GLUCOSE, FASTING 204 MG/DL (60-100); POTASSIUM SERUM 3.8 MMOL/L (3.5-5.1); SODIUM LEVEL 132 MMOL/L (136-145); TOTAL PROTEIN 8.5 G/DL (5.7-8.2)
[2022-06-08] MEDS ORDERED: NS 1,000 ML IV ONE ×2 (20:05→22:10)
[2022-06-08] MEDS ORDERED: ONDANSETRON 4MG 2ML VIAL IV ONE (20:05)
[2022-06-08] MEDS: HYDROMORPHONE HCL 0.5 MG/ 0.5 ML SYRINGE IV PRN ×2 (20:23→22:18)
[2022-06-08] MEDS ORDERED: METOCLOPRAMIDE INJ 10MG/2ML VIAL IV ONE (22:45)
[2022-06-08 23:04] VITALS: BP 134/80
[2022-06-08] MEDS ORDERED: REGL10TA6 PO (23:06)
== END 2022-06-08 23:16 | disposition home or self-care (01) ==
LOC: M ED 18:07
DX: R11.10 Vomiting, unspecified (principal); K58.9 Irritable bowel syndrome, unspecified; F17.200 Nicotine dependence, unspecified, uncomplicated; F10.10 Alcohol abuse, uncomplicated; Z88.0 Allergy status to penicillin; Z88.5 Allergy status to narcotic agent; Z98.3 Post therapeutic collapse of lung status; Z79.899 Other long term (current) drug therapy
CPT/HCPCS: 36415; 80048; 80076; 81001; 83605; 83690; 85025; 96361; 96374; 96375; 96376; 99284; J1170; J2405; J2765

== ENCOUNTER → 2022-09-23 | Outpatient (CLI) | payer BC, OTHER ==
[~2022-09-23] MED LIST changes: +COSE1INJ4; +DICL100G10; -DICL1GEL3
== END ==
LOC: M PAIN 15:30
PROVIDERS: ATTEND Nurse Practitioner Family
DX: K86.1 Other chronic pancreatitis (principal); F17.210 Nicotine dependence, cigarettes, uncomplicated; Z86.59 Personal history of other mental and behavioral disorders; Z88.0 Allergy status to penicillin; Z88.5 Allergy status to narcotic agent; Z88.8 Allergy status to other drugs, medicaments and biological substances; Z79.899 Other long term (current) drug therapy

== ENCOUNTER 2022-12-01 18:00 | Outpatient (CLI) | payer BC, OTHER ==
[~2022-12-01] VITALS: Ht 160 cm; Wt 42.8 kg
[~2022-12-01 18:00] MED LIST changes: +ALCOPAD25 TOP; +BLOOKIT21 XX; +COSE1INJ SC; +DALBAVANCIN 1,500 MG in D5W 250 ML IV ONE; +DILA8TAB5 PO; +GLUC1TES2 XX; +INSU100I48 SQ; +LANC30MI XX; +NOVOINJ3 SC; +ONDA8TAB8 PO; +PEN-61 SC; +TAGA200T3 PO; +VITATAB73 PO
[2022-12-02] MEDS ORDERED: HIBI4LIQ EX (14:35)
[2022-12-02] MEDS ORDERED: MUPI30CR TOP (14:37)
== END 2022-12-01 19:20 | disposition home or self-care (01) ==
LOC: M MS5PR 18:00 → M OPCLI4 18:00
PROVIDERS: ATTEND Internal Medicine
DX: R78.81 Bacteremia (principal); B95.61 Methicillin susceptible Staphylococcus aureus infection as the cause of diseases classified elsewhere; Z88.0 Allergy status to penicillin; Z88.5 Allergy status to narcotic agent
CPT/HCPCS: 96365; J0875

== ENCOUNTER → 2022-12-15 | Outpatient (REF) | payer BC, OTHER ==
[~2022-12-15] MED LIST changes: -DALBAVANCIN 1,500 MG in D5W 250 ML IV ONE; +HIBI4LIQ EX; +MUPI30CR TOP
== END ==
LOC: M SFHCADAM 16:00
PROVIDERS: ATTEND Family Medicine
DX: Z53.9 Procedure and treatment not carried out, unspecified reason (principal)

== ENCOUNTER → 2022-12-22 | Outpatient (REF) | payer BC, OTHER ==
[2022-12-22 17:33] LABS: HEMATOCRIT 47.1 % (36.0-47.0); HEMOGLOBIN 15.5 g/dl (12.0-15.5); MEAN CORPUSCULAR HEMOGLOBIN 31.8 pg (27.0-33.0); MEAN CORPUSCULAR HGB CONC 32.9 g/dl (32.0-36.5); MEAN CORPUSCULAR VOLUME 96.5 fl (80.0-96.0); PLATELET COUNT, AUTOMATED 311 10^3/uL (150-450); RED BLOOD COUNT 4.88 10^6/uL (4.00-5.40); WHITE BLOOD COUNT 9.5 10^3/uL (4.0-10.0)
[2022-12-22 18:01] LABS: HEMOGLOBIN A1c 9.7 % (4.0-6.0)
[2022-12-22 18:08] LABS: ALBUMIN 3.9 G/DL (3.2-5.2); ALKALINE PHOSPHATASE 143 U/L (46-116); ALT/SGPT 72 U/L (7.0-40); AST/SGOT 32 U/L (<34); BILIRUBIN,TOTAL 0.4 MG/DL (0.3-1.2); BLOOD UREA NITROGEN 11 MG/DL (9-23); CALCIUM LEVEL 9.8 MG/DL (8.5-10.1); CARBON DIOXIDE LEVEL 26 MMOL/L (20-31); CHLORIDE LEVEL 101 MMOL/L (98-107); CREATININE FOR GFR 0.59 MG/DL (0.55-1.30); GLOMERULAR FILTRATION RATE > 60.0 (>51); GLUCOSE, FASTING 337 MG/DL (60-100); SODIUM LEVEL 136 MMOL/L (136-145); TOTAL PROTEIN 7.5 G/DL (5.7-8.2)
[2022-12-22 18:09] LABS: FREE T4 0.96 NG/DL (0.89-1.76); THYROID STIMULATING HORMONE 0.567 uIU/ML (0.55-4.78); VITAMIN B12 LEVEL 570 PG/ML (211-911)
[2022-12-22 18:14] LABS: FOLATE 11.68 NG/ML (>5.4)
[2023-01-06 15:08] LABS: CODEINE, URINE Negative (Cutoff=100); CREATININE, URINE 76.7 mg/dL (20.0-300.0); HYDROCODONE, URINE Negative (Cutoff=100); HYDROMORPHONE CONFIRM, URINE 4440 ng/mL (Cutoff=100); HYDROMORPHONE, URINE Positive (.); MORPHINE, URINE Negative (Cutoff=100); OPIATES, URINE Positive ng/mL (Cutoff=300)
== END ==
LOC: M SFHCADAM 15:42
PROVIDERS: ATTEND Family Medicine
DX: M79.2 Neuralgia and neuritis, unspecified (principal); E13.10 Other specified diabetes mellitus with ketoacidosis without coma; Z79.891 Long term (current) use of opiate analgesic
CPT/HCPCS: 80053; 80307; 82607; 82746; 83036; 83516; 84439; 84443; 85027; 86235; 86376; 86381; G0499

== ENCOUNTER → 2023-01-19 | Outpatient (CLI) | payer BC | LOC: M PAIN 17:30 | PROVIDERS: ATTEND Nurse Practitioner Family | DX: K86.1 Other chronic pancreatitis (principal); F17.210 Nicotine dependence, cigarettes, uncomplicated; Z88.0 Allergy status to penicillin; Z88.5 Allergy status to narcotic agent; Z88.8 Allergy status to other drugs, medicaments and biological substances; Z79.4 Long term (current) use of insulin; Z79.899 Other long term (current) drug therapy ==

== ENCOUNTER → 2023-02-21 | Outpatient (CLI) | payer BC, OTHER | LOC: M PAIN 15:30 | PROVIDERS: ATTEND Nurse Practitioner Family | DX: K86.1 Other chronic pancreatitis (principal); G89.29 Other chronic pain; E11.9 Type 2 diabetes mellitus without complications; K58.9 Irritable bowel syndrome, unspecified; L40.0 Psoriasis vulgaris; F17.210 Nicotine dependence, cigarettes, uncomplicated; Z79.4 Long term (current) use of insulin; Z79.899 Other long term (current) drug therapy; Z88.0 Allergy status to penicillin; Z88.5 Allergy status to narcotic agent; Z88.8 Allergy status to other drugs, medicaments and biological substances ==

== ENCOUNTER → 2023-04-06 | Outpatient (CLI) | payer BC, OTHER | LOC: M RAD 16:06 | PROVIDERS: ATTEND Family Medicine | DX: Z12.2 Encounter for screening for malignant neoplasm of respiratory organs (principal); F17.210 Nicotine dependence, cigarettes, uncomplicated; R91.8 Other nonspecific abnormal finding of lung field ==

== ENCOUNTER → 2023-04-06 | Outpatient (CLI) | payer BC, OTHER | LOC: M PAIN 14:45 | PROVIDERS: ATTEND Nurse Practitioner Family | DX: K86.1 Other chronic pancreatitis (principal); Z79.891 Long term (current) use of opiate analgesic; F17.200 Nicotine dependence, unspecified, uncomplicated; Z79.4 Long term (current) use of insulin; Z79.52 Long term (current) use of systemic steroids; Z79.620 Long term (current) use of immunosuppressive biologic; Z79.899 Other long term (current) drug therapy; Z88.0 Allergy status to penicillin; Z88.5 Allergy status to narcotic agent; Z88.8 Allergy status to other drugs, medicaments and biological substances ==

== ENCOUNTER → 2023-04-25 | Outpatient (CLI) | payer BC | LOC: M PAIN 17:00 | PROVIDERS: ATTEND Nurse Practitioner Family | DX: K86.1 Other chronic pancreatitis (principal); F17.200 Nicotine dependence, unspecified, uncomplicated; E11.9 Type 2 diabetes mellitus without complications; Z79.4 Long term (current) use of insulin; Z79.82 Long term (current) use of aspirin; Z79.891 Long term (current) use of opiate analgesic; Z79.899 Other long term (current) drug therapy; Z88.0 Allergy status to penicillin; Z88.5 Allergy status to narcotic agent; Z88.8 Allergy status to other drugs, medicaments and biological substances ==

== ENCOUNTER 2023-08-11 15:36 | Observation (INO) | payer BC ==
[~2023-08-11] VITALS: Ht 157.5 cm; Wt 54.5 kg
[~2023-08-11 15:36] MED LIST changes: +COSE1INJ INJ; -COSE1INJ SC; +ONDA-284 PO; -ONDA8TAB8 PO
[2023-08-11] MEDS: diphenhydrAMINE 50MG/ML VIAL IV ONE (16:19)
[2023-08-11] MEDS: HALOPERIDOL LACTATE 5MG/ML VIAL IV ONE ×2 (16:19→19:22)
[2023-08-11 16:21] LABS: VENOUS BASE EXCESS 3.6 (-2.0-2.0); VENOUS HCO3 25.9 MMOL/L (23.0-27.0); VENOUS O2 SATURATION 80.3 % (60.0-80.0); VENOUS PARTIAL PRESSURE O2 38.5 mmHg (30.0-50.0); VENOUS PH 7.512 UNITS (7.330-7.430); VENOUS STANDARD HCO3 27.1 MMOL/L; VENOUS TOTAL CO2 26.9 MMOL/L (24.0-28.0)
[2023-08-11] MEDS: NS 1,000 ML IV ONE ×2 (16:21→22:01)
[2023-08-11 16:24] LABS: BASO # 0.1 10^3/uL (0.0-0.2); BASO % 0.7 % (0.0-1.0); EOS % 0.1 % (0.0-3.0); HEMATOCRIT 46.4 % (36.0-47.0); HEMOGLOBIN 16.5 g/dl (12.0-15.5); LYMPH # 1.8 10^3/uL (1.5-5.0); LYMPH % 10.5 % (24.0-44.0); MEAN CORPUSCULAR HGB CONC 35.6 g/dl (32.0-36.5); MEAN CORPUSCULAR VOLUME 92.8 fl (80.0-96.0); MONO # 0.6 10^3/uL (0.0-0.8); MONO % 3.7 % (2.0-8.0); NEUTROPHILS # 14.3 10^3/uL (1.5-8.5); NEUTROPHILS % 84.6 % (36.0-66.0); PLATELET COUNT, AUTOMATED 373 10^3/uL (150-450); WHITE BLOOD COUNT 16.9 10^3/uL (4.0-10.0)
[2023-08-11 16:51] LABS: ETHYL ALCOHOL (ETHANOL) < 0.003 % (0.000-0.010)
[2023-08-11 16:53] LABS: ACETONE/KETONE 1.12 MMOL/L (0.02-0.27)
[2023-08-11 16:55] LABS: HEMOGLOBIN A1c 6.5 % (4.0-6.0)
[2023-08-11 16:55] LABS: ALBUMIN 3.9 G/DL (3.2-5.2); ALKALINE PHOSPHATASE 176 U/L (46-116); ALT/SGPT 41 U/L (7.0-40); AST/SGOT 37 U/L (<34); BILIRUBIN,DIRECT 0.2 MG/DL (<0.4); BILIRUBIN,TOTAL 0.7 MG/DL (0.3-1.2); BLOOD UREA NITROGEN 11 MG/DL (9-23); CALCIUM LEVEL 9.3 MG/DL (8.5-10.1); CARBON DIOXIDE LEVEL 26 MMOL/L (20-31); CHLORIDE LEVEL 97 MMOL/L (98-107); CREATININE FOR GFR 0.39 MG/DL (0.55-1.30); GLOMERULAR FILTRATION RATE > 60.0 (>51); GLUCOSE, FASTING 307 MG/DL (60-100); LIPASE 26 U/L (12-53); MAGNESIUM LEVEL 1.3 MG/DL (1.8-2.4); POTASSIUM SERUM 4.6 MMOL/L (3.5-5.1); SODIUM LEVEL 134 MMOL/L (136-145)
[2023-08-11] MEDS ORDERED: ISOVUE-370 76% 100ML VIAL As Ordered ONE (18:15)
[2023-08-11] MEDS: GASTROGRAFIN SOLUTION 30ML PO SCH (18:47)
[2023-08-11] MEDS: LABETALOL 100MG/20ML VIAL IV STA (18:51)
[2023-08-11] MEDS: MAG SULF 1GM/100ML (MAG RUN) 1 GM in IV 1 EA IV ONE (18:51)
[2023-08-11] MEDS: HYDROmorphone 2 MG TAB PO ONE (18:52)
[2023-08-11 20:14] LABS: AMPHETAMINES LEVEL URINE NEGATIVE (NEGATIVE); BARBITURATES URINE NEGATIVE (NEGATIVE)
[2023-08-11 20:15] LABS: BENZODIAZEPINES URINE NEGATIVE (NEGATIVE); CANNABINOIDS URINE NEGATIVE (NEGATIVE); COCAINE METABOLITE URINE NEGATIVE (NEGATIVE); METHADONE URINE NEGATIVE (NEGATIVE); PHENCYCLIDINE URINE NEGATIVE (NEGATIVE)
[2023-08-11 20:17] LABS: OPIATES URINE POSITIVE (NEGATIVE)
[2023-08-11] MEDS: hydrALAZINE 20MG/ML 1ML VIAL IV STA (20:32)
[2023-08-11] MEDS ORDERED: MED REC IN PROGRESS XX SCH (21:40)
[2023-08-11] MEDS ORDERED: MED REC CURRENTLY UNOBTAINABLE XX SCH (22:20)
[2023-08-12] VITALS (8 sets, daily range): BP systolic 100–200; BP diastolic 50–120; TEMP 97.5–98.1; O2SAT 96–99
[2023-08-12] MEDS ORDERED: ACETAMINOPHEN TAB 650MG DOSE (2X325MG) PO PRN (01:20)
[2023-08-12] MEDS ORDERED: TRAN1DIS4 TOP (01:29)
[2023-08-12] MEDS ORDERED: TRES1INJ2 INJ (01:29)
[2023-08-12] MEDS ORDERED: DULO1CAP5 PO (01:29)
[2023-08-12] MEDS ORDERED: GLUCAGON INJ 1MG VIAL SC PRN (01:30)
[2023-08-12] MEDS ORDERED: HOME MED LIST COMPLETE! XX SCH (01:30)
[2023-08-12] MEDS ORDERED: GLUCOSE 4 GM CHEW PO PRN (01:30)
[2023-08-12] MEDS ORDERED: DEXTROSE 50% 50ML SYRINGE IV PRN (01:30)
[2023-08-12] MEDS: LR 1,000 ML IV SCH (01:43)
[2023-08-12] MEDS: PANTOPRAZOLE 40MG VIAL IV ONE (02:08)
[2023-08-12] MEDS: MAG SULF 1GM/100ML (MAG RUN) 1 GM in IV 1 EA IV ONE (02:08)
[2023-08-12] MEDS: LR 1,000 ML IV STA (02:46)
[2023-08-12] MEDS: ONDANSETRON 4MG ORAL DISINTEGRATING TAB PO PRN (06:06)
[2023-08-12 07:26] LABS: HEMATOCRIT 39.1 % (36.0-47.0); MEAN CORPUSCULAR HEMOGLOBIN 32.6 pg (27.0-33.0); MEAN CORPUSCULAR HGB CONC 34.5 g/dl (32.0-36.5); MEAN CORPUSCULAR VOLUME 94.4 fl (80.0-96.0); RED BLOOD COUNT 4.14 10^6/uL (4.00-5.40); WHITE BLOOD COUNT 10.9 10^3/uL (4.0-10.0)
[2023-08-12 07:27] LABS: HEMOGLOBIN 13.5 g/dl (12.0-15.5)
[2023-08-12 07:28] LABS: PLATELET COUNT, AUTOMATED 263 10^3/uL (150-450)
[2023-08-12] MEDS: INSULIN LISPRO (NovoLOG) PER UNIT SC SCH ×2 (07:30→21:00)
[2023-08-12 07:55] LABS: ALBUMIN 2.9 G/DL (3.2-5.2); ALKALINE PHOSPHATASE 122 U/L (46-116); ALT/SGPT 26 U/L (7.0-40); AST/SGOT 17 U/L (<34); BILIRUBIN,TOTAL 0.7 MG/DL (0.3-1.2); BLOOD UREA NITROGEN 11 MG/DL (9-23); CALCIUM LEVEL 8.2 MG/DL (8.5-10.1); CARBON DIOXIDE LEVEL 27 MMOL/L (20-31); CHLORIDE LEVEL 104 MMOL/L (98-107); CREATININE FOR GFR 0.48 MG/DL (0.55-1.30); GLOMERULAR FILTRATION RATE > 60.0 (>51); GLUCOSE, FASTING 253 MG/DL (60-100); MAGNESIUM LEVEL 1.9 MG/DL (1.8-2.4); POTASSIUM SERUM 3.5 MMOL/L (3.5-5.1); PROCALCITONIN <0.04 ng/ml; SODIUM LEVEL 137 MMOL/L (136-145); TOTAL PROTEIN 6.1 G/DL (5.7-8.2)
[2023-08-12] MEDS: HYDROMORPHONE HCL 0.5 MG/ 0.5 ML SYRINGE IV PRN (08:26)
[2023-08-12] MEDS: PANTOPRAZOLE 40MG TAB (PROTONIX) PO SCH (08:27)
[2023-08-12] MEDS: ENOXAPARIN 40MG/0.4ML SYRINGE (J1650 PER 10MG) SC SCH (08:27)
[2023-08-12] MEDS: ONDANSETRON 4MG 2ML VIAL IV ONE (22:06)
[2023-08-12] MEDS: METOCLOPRAMIDE INJ 10MG/2ML VIAL IV ONE (23:40)
[2023-08-12] MEDS: **hydrALAZINE** 10 MG TAB PO ONE (23:41)
[2023-08-13] VITALS (7 sets, daily range): BP systolic 122–192; BP diastolic 73–102; TEMP 97.9–98.2; O2SAT 92–97
[2023-08-13] MEDS: HYDROmorphone HCL 2MG/ML 1ML VIAL IV PRN (01:45)
[2023-08-13] MEDS: HALOPERIDOL LACTATE 5MG/ML VIAL IV PRN (02:05)
[2023-08-13] MEDS: SCOPOLAMINE 1MG TRANSDERMAL PATCH TOP PRN (02:05)
[2023-08-13] MEDS: diphenhydrAMINE 50MG/ML VIAL IV ONE (03:29)
[2023-08-13] MEDS: LR 1,000 ML IV SCH (04:53)
[2023-08-13] MEDS: PANTOPRAZOLE 40MG VIAL IV SCH (08:24)
[2023-08-13] MEDS ORDERED: PROMETHAZINE 25MG/ML 1ML VIAL IV PRN (08:55)
[2023-08-13] MEDS: METOCLOPRAMIDE INJ 10MG/2ML VIAL IV PRN ×2 (10:33→20:28)
[2023-08-13 19:35] LABS: BASO # 0.1 10^3/uL (0.0-0.2); BASO % 0.5 % (0.0-1.0); EOS % 0.2 % (0.0-3.0); HEMATOCRIT 41.4 % (36.0-47.0); HEMOGLOBIN 14.3 g/dl (12.0-15.5); LYMPH # 3.9 10^3/uL (1.5-5.0); LYMPH % 32.6 % (24.0-44.0); MEAN CORPUSCULAR HEMOGLOBIN 32.6 pg (27.0-33.0); MEAN CORPUSCULAR HGB CONC 34.5 g/dl (32.0-36.5); MEAN CORPUSCULAR VOLUME 94.5 fl (80.0-96.0); MONO # 1.1 10^3/uL (0.0-0.8); MONO % 9.2 % (2.0-8.0); NEUTROPHILS # 6.8 10^3/uL (1.5-8.5); NEUTROPHILS % 57.2 % (36.0-66.0); PLATELET COUNT, AUTOMATED 249 10^3/uL (150-450); RED BLOOD COUNT 4.38 10^6/uL (4.00-5.40)
[2023-08-13 20:07] LABS: ALBUMIN 3.3 G/DL (3.2-5.2); ALKALINE PHOSPHATASE 113 U/L (46-116); ALT/SGPT 21 U/L (7.0-40); AST/SGOT 12 U/L (<34); BILIRUBIN,TOTAL 0.8 MG/DL (0.3-1.2); BLOOD UREA NITROGEN 7 MG/DL (9-23); CARBON DIOXIDE LEVEL 29 MMOL/L (20-31); CHLORIDE LEVEL 101 MMOL/L (98-107); CREATININE FOR GFR 0.46 MG/DL (0.55-1.30); GLOMERULAR FILTRATION RATE > 60.0 (>51); GLUCOSE, FASTING 131 MG/DL (60-100); POTASSIUM SERUM 3.1 MMOL/L (3.5-5.1); SODIUM LEVEL 136 MMOL/L (136-145); TOTAL PROTEIN 6.6 G/DL (5.7-8.2)
[2023-08-14] VITALS: BP 138/76; TEMP 98.1; O2SAT 94
[2023-08-14] MEDS: diphenhydrAMINE 50MG/ML VIAL IV ONE
[2023-08-14] MEDS: METOCLOPRAMIDE INJ 10MG/2ML VIAL IV ONE (01:00)
[2023-08-14 04:10] VITALS: BP 133/73; TEMP 97.5; O2SAT 95
[2023-08-14 08:00] VITALS: BP 178/108; TEMP 97.3; O2SAT 100
[2023-08-14] MEDS: POTASSIUM CHLORIDE 10MEQ SR TABLET PO SCH (08:01)
[2023-08-14 09:17] VITALS: BP 163/96
[2023-08-14 09:24] LABS: BASO # 0.1 10^3/uL (0.0-0.2); EOS # 0.1 10^3/uL (0.0-0.5); EOS % 1.3 % (0.0-3.0); HEMATOCRIT 41.8 % (36.0-47.0); LYMPH # 2.9 10^3/uL (1.5-5.0); LYMPH % 35.3 % (24.0-44.0); MEAN CORPUSCULAR HGB CONC 33.5 g/dl (32.0-36.5); MEAN CORPUSCULAR VOLUME 95.7 fl (80.0-96.0); MONO # 0.9 10^3/uL (0.0-0.8); MONO % 10.8 % (2.0-8.0); NEUTROPHILS # 4.2 10^3/uL (1.5-8.5); NEUTROPHILS % 51.2 % (36.0-66.0); PLATELET COUNT, AUTOMATED 222 10^3/uL (150-450); RED BLOOD COUNT 4.37 10^6/uL (4.00-5.40); WHITE BLOOD COUNT 8.3 10^3/uL (4.0-10.0)
[2023-08-14 09:38] LABS: LIPASE 25 U/L (12-53)
[2023-08-14 09:40] LABS: ALBUMIN 3.4 G/DL (3.2-5.2); ALKALINE PHOSPHATASE 103 U/L (46-116); ALT/SGPT 24 U/L (7.0-40); AST/SGOT 23 U/L (<34); BILIRUBIN,TOTAL 1.1 MG/DL (0.3-1.2); BLOOD UREA NITROGEN 6 MG/DL (9-23); CALCIUM LEVEL 8.8 MG/DL (8.5-10.1); CARBON DIOXIDE LEVEL 29 MMOL/L (20-31); CHLORIDE LEVEL 101 MMOL/L (98-107); CREATININE FOR GFR 0.47 MG/DL (0.55-1.30); GLOMERULAR FILTRATION RATE > 60.0 (>51); GLUCOSE, FASTING 146 MG/DL (60-100); MAGNESIUM LEVEL 1.4 MG/DL (1.8-2.4); POTASSIUM SERUM 3.1 MMOL/L (3.5-5.1); SODIUM LEVEL 137 MMOL/L (136-145); TOTAL PROTEIN 6.3 G/DL (5.7-8.2)
[2023-08-14] MEDS ORDERED: POTASSIUM CHLORIDE 10MEQ SR TABLET PO ONE (11:00)
[2023-08-14] MEDS ORDERED: PANT40TA29 PO (11:06)
[2023-08-14] MEDS: MAG SULF 1GM/100ML (MAG RUN) 1 GM in IV 1 EA IV SCH (11:23)
[2023-08-14] MEDS: POTASSIUM CHLORIDE 10MEQ SR TABLET PO ONE (11:24)
[2023-08-14 12:00] VITALS: BP 161/94; TEMP 97.7; O2SAT 98
== END 2023-08-14 13:45 | disposition home or self-care (01) ==
LOC: M ED 15:36 → EDBD 15:36 → M ED INP 15:37 → M MSPAV 08-12 05:02
PROVIDERS: ADMIT Preventive Medicine Undersea and Hyperbaric Medicine; ATTEND Hospitalist
DX: K86.1 Other chronic pancreatitis (principal); R11.2 Nausea with vomiting, unspecified; R10.9 Unspecified abdominal pain; K58.8 Other irritable bowel syndrome; E11.9 Type 2 diabetes mellitus without complications; E44.1 Mild protein-calorie malnutrition; F32.A Depression, unspecified; G25.0 Essential tremor; Z79.899 Other long term (current) drug therapy; Z79.4 Long term (current) use of insulin; Z88.0 Allergy status to penicillin; Z88.5 Allergy status to narcotic agent; Z88.8 Allergy status to other drugs, medicaments and biological substances
CPT/HCPCS: 36415; 71045; 74177; 80048; 80053; 80076; 80307; 81001; 82010; 82077; 82803; 83036; 83605; 83690; 83735; 84145; 85025; 85027; 87486; 87581; 87633; 87798; 93005; 93041; 96361; 96374; 96375; 96376; 99285; C9113; J0360; J1170; J1200; J1630; J1815; J1920; J2405; J2470; J2765; J3475; Q9963; Q9967

== ENCOUNTER → 2023-08-22 | Outpatient (CLI) | payer BC ==
[~2023-08-22] MED LIST changes: +DULO1CAP5 PO; +PANT40TA29 PO; +TRAN1DIS4 TOP; +TRES1INJ2 INJ
== END ==
LOC: M PAIN 16:30
PROVIDERS: ATTEND Nurse Practitioner Family
DX: K86.1 Other chronic pancreatitis (principal); Z79.891 Long term (current) use of opiate analgesic; G89.29 Other chronic pain; K86.2 Cyst of pancreas; E11.9 Type 2 diabetes mellitus without complications; K58.9 Irritable bowel syndrome, unspecified; L40.0 Psoriasis vulgaris; F17.210 Nicotine dependence, cigarettes, uncomplicated; Z79.4 Long term (current) use of insulin; Z79.899 Other long term (current) drug therapy; Z88.0 Allergy status to penicillin; Z88.5 Allergy status to narcotic agent; Z88.8 Allergy status to other drugs, medicaments and biological substances

== ENCOUNTER → 2023-08-24 | Outpatient (REF) | payer BC ==
[2023-08-24 14:51] LABS: MAU/CREAT RATIO 11.1 MCG/MG (0.0-30.0)
[2023-08-24 14:54] LABS: ALBUMIN 3.3 G/DL (3.2-5.2); ALKALINE PHOSPHATASE 132 U/L (46-116); ALT/SGPT 24 U/L (7.0-40); AST/SGOT 24 U/L (<34); BILIRUBIN,TOTAL 0.2 MG/DL (0.3-1.2); BLOOD UREA NITROGEN 9 MG/DL (9-23); CALCIUM LEVEL 8.8 MG/DL (8.5-10.1); CARBON DIOXIDE LEVEL 29 MMOL/L (20-31); CHLORIDE LEVEL 105 MMOL/L (98-107); CHOLESTEROL LEVEL 161 MG/DL (<200); CREATININE FOR GFR 0.62 MG/DL (0.55-1.30); GLOMERULAR FILTRATION RATE > 60.0 (>51); GLUCOSE, FASTING 132 MG/DL (60-100); HDL CHOLESTEROL 59.5 MG/DL (>40); LDL CHOLESTEROL 78.1 MG/DL (<100); NON-HDL-C 101.5 MG/DL; PTH INTACT 50.2 PG/ML (18.5-88.0); SODIUM LEVEL 141 MMOL/L (136-145); TOTAL 25(OH) VITAMIN D 9.3 NG/ML (20.0-100.0); TOTAL PROTEIN 6.7 G/DL (5.7-8.2); TRIGLYCERIDES LEVEL 117 MG/DL (<150)
[2023-08-25 09:52] LABS: C-PEPTIDE 0.92 ng/mL (0.80-3.85)
[2023-08-25 15:17] LABS: T P ELECTROPHORESIS SO 6.8 g/dL (6.1-8.1)
[2023-08-27 17:17] LABS: GAD-65 AUTOANTIBODY < 5 IU/mL (<5)
[2023-08-28 13:27] LABS: ANTI CENTROMERE ANTIBODY <1.0 NEG AI (<1.0 NEG); SSA SJOGRENS A <1.0 NEG AI (<1.0 NEG); SSB SJOGRENS B <1.0 NEG AI (<1.0 NEG)
== END ==
LOC: M SFHCADAM 09:56
PROVIDERS: ATTEND Family Medicine
DX: E10.9 Type 1 diabetes mellitus without complications (principal); K72.10 Chronic hepatic failure without coma; E55.9 Vitamin D deficiency, unspecified; D75.89 Other specified diseases of blood and blood-forming organs

== ENCOUNTER → 2023-10-24 | Outpatient (CLI) | payer BC | LOC: M PAIN 17:00 | PROVIDERS: ATTEND Nurse Practitioner Family | DX: K86.1 Other chronic pancreatitis (principal); Z79.891 Long term (current) use of opiate analgesic; G89.29 Other chronic pain; E11.9 Type 2 diabetes mellitus without complications; F33.9 Major depressive disorder, recurrent, unspecified; G25.0 Essential tremor; L40.0 Psoriasis vulgaris; F17.210 Nicotine dependence, cigarettes, uncomplicated; Z79.4 Long term (current) use of insulin; Z79.899 Other long term (current) drug therapy; Z88.0 Allergy status to penicillin; Z88.5 Allergy status to narcotic agent; Z88.8 Allergy status to other drugs, medicaments and biological substances ==

== ENCOUNTER 2024-03-24 12:21 | Inpatient (IN) | payer BC ==
[~2024-03-24] VITALS: Ht 157.5 cm; Wt 51.2 kg
[2024-03-24] VITALS (8 sets, daily range): BP systolic 139–190; BP diastolic 65–99; TEMP 98.5–99.5; O2SAT 96–98
[~2024-03-24 12:21] MED LIST changes: +GABA-1172 PO; -GABA-282 PO
[2024-03-24 13:09] LABS: VENOUS BASE EXCESS 0.6 (-2.0-2.0); VENOUS HCO3 22.6 MMOL/L (23.0-27.0); VENOUS O2 SATURATION 92.6 % (60.0-80.0); VENOUS PARTIAL PRESSURE CO2 30.3 mmHg (38.0-50.0); VENOUS PARTIAL PRESSURE O2 63.7 mmHg (30.0-50.0); VENOUS STANDARD HCO3 24.8 MMOL/L; VENOUS TOTAL CO2 23.5 MMOL/L (24.0-28.0)
[2024-03-24 13:14] LABS: BASO % 0.2 % (0.0-1.0); EOS % 0.1 % (0.0-3.0); HEMATOCRIT 49.8 % (36.0-47.0); HEMOGLOBIN 17.1 g/dl (12.0-15.5); LYMPH # 2.2 10^3/uL (1.5-5.0); LYMPH % 10.9 % (24.0-44.0); MEAN CORPUSCULAR HEMOGLOBIN 30.5 pg (27.0-33.0); MEAN CORPUSCULAR HGB CONC 34.3 g/dl (32.0-36.5); MEAN CORPUSCULAR VOLUME 88.9 fl (80.0-96.0); MONO # 1.7 10^3/uL (0.0-0.8); MONO % 8.6 % (2.0-8.0); NEUTROPHILS % 79.7 % (36.0-66.0); PLATELET COUNT, AUTOMATED 264 10^3/uL (150-450)
[2024-03-24] MEDS: NS (Normal Saline) 0.9% 1,000 ML IV ONE ×2 (13:19→14:59)
[2024-03-24] MEDS: ONDANSETRON 4MG 2ML VIAL IV ONE (13:19)
[2024-03-24] MEDS: MORPHINE 2 MG/ML 1ML VIAL IV ONE (13:20)
[2024-03-24] MEDS: KETOROLAC 30 MG/ML 1ML VIAL IV ONE (13:20)
[2024-03-24 13:26] LABS: INR 0.95
[2024-03-24 13:38] LABS: LIPASE 37 U/L (12-53)
[2024-03-24 13:39] LABS: AMYLASE 78 U/L (30-118)
[2024-03-24 13:40] LABS: ACETONE/KETONE 4.47 MMOL/L (0.02-0.27)
[2024-03-24 13:42] LABS: ALBUMIN 3.6 G/DL (3.2-5.2); ALKALINE PHOSPHATASE 200 U/L (35-104); ALT/SGPT 64 U/L (7.0-40); AST/SGOT 42 U/L (<34); BILIRUBIN,DIRECT 0.3 MG/DL (<0.4); BILIRUBIN,TOTAL 1.1 MG/DL (0.3-1.2); BLOOD UREA NITROGEN 25 MG/DL (9-23); CALCIUM LEVEL 9.3 MG/DL (8.5-10.1); CARBON DIOXIDE LEVEL 24 MMOL/L (20-31); CHLORIDE LEVEL 91 MMOL/L (98-107); CREATININE FOR GFR 0.74 MG/DL (0.55-1.30); GLOMERULAR FILTRATION RATE > 60.0 (>51); GLUCOSE, FASTING 432 MG/DL (60-100); POTASSIUM SERUM 3.6 MMOL/L (3.5-5.1); SODIUM LEVEL 133 MMOL/L (136-145); TOTAL PROTEIN 7.8 G/DL (5.7-8.2)
[2024-03-24] MEDS: INSULIN REGULAR IN 0.9 % NACL 100 UNIT in IV 1 EA IV SCH (14:17)
[2024-03-24] MEDS ORDERED: ALBUTEROL SULFATE 2.5MG/0.5ML INH NEB SOLN NEB PRN (14:20)
[2024-03-24] MEDS: KCL 20MEQ in NS 1000ML 1,000 ML IV SCH (14:29)
[2024-03-24] MEDS ORDERED: ACETAMINOPHEN 325 MG TAB PO PRN (14:30)
[2024-03-24] MEDS: KCL 20MEQ IN 0.45NS 1000ML 1,000 ML IV SCH (15:02)
[2024-03-24] MEDS: INSULIN IV RATE CHANGE DOCUMENTATION ML/HR XX SCH (16:17)
[2024-03-24] MEDS ORDERED: BETA5OI TOP (16:46)
[2024-03-24] MEDS ORDERED: DULO1CAP6 PO (16:46)
[2024-03-24] MEDS: KCL 20MEQ IN D5/0.45NS 1000ML 1,000 ML IV SCH (16:48)
[2024-03-24] MEDS ORDERED: IBUP200C25 PO (16:48)
[2024-03-24] MEDS ORDERED: HOME MED LIST COMPLETE! XX SCH (16:50)
[2024-03-24 16:58] LABS: BLOOD UREA NITROGEN 25 MG/DL (9-23); CALCIUM LEVEL 8.9 MG/DL (8.5-10.1); CARBON DIOXIDE LEVEL 24 MMOL/L (20-31); CHLORIDE LEVEL 99 MMOL/L (98-107); CREATININE FOR GFR 0.61 MG/DL (0.55-1.30); GLOMERULAR FILTRATION RATE > 60.0 (>51); GLUCOSE, FASTING 192 MG/DL (60-100); POTASSIUM SERUM 3.5 MMOL/L (3.5-5.1); SODIUM LEVEL 138 MMOL/L (136-145)
[2024-03-24] MEDS: ENOXAPARIN 30MG/0.3ML SYRINGE (J1650 PER 10MG) SC SCH (17:10)
[2024-03-24 17:13] LABS: ACETONE/KETONE 0.91 MMOL/L (0.02-0.27)
[2024-03-24] MEDS: ONDANSETRON 4MG 2ML VIAL IV SCH (17:40)
[2024-03-24] MEDS: MORPHINE 2 MG/ML 1ML VIAL IV PRN (17:47)
[2024-03-24 20:00] LABS: BLOOD UREA NITROGEN 27 MG/DL (9-23); CALCIUM LEVEL 8.9 MG/DL (8.5-10.1); CARBON DIOXIDE LEVEL 28 MMOL/L (20-31); CHLORIDE LEVEL 99 MMOL/L (98-107); GLOMERULAR FILTRATION RATE > 60.0 (>51); GLUCOSE, FASTING 160 MG/DL (60-100); POTASSIUM SERUM 3.7 MMOL/L (3.5-5.1); SODIUM LEVEL 139 MMOL/L (136-145)
[2024-03-24] MEDS ORDERED: GLUCOSE 4 GM CHEW PO PRN (20:00)
[2024-03-24] MEDS ORDERED: GLUCAGON INJ 1MG VIAL SC PRN (20:00)
[2024-03-24] MEDS ORDERED: DEXTROSE 50% 50ML SYRINGE IV PRN (20:00)
[2024-03-24] MEDS: INSULIN LISPRO (NovoLOG) PER UNIT SC ONE (20:02)
[2024-03-24] MEDS: METOCLOPRAMIDE INJ 10MG/2ML VIAL IV ONE (20:02)
[2024-03-24] MEDS: INSULIN LISPRO (NovoLOG) PER UNIT SC SCH (21:00)
[2024-03-24] MEDS: MORPHINE 4 MG/ML 1ML VIAL IV PRN (23:14)
[2024-03-25] VITALS (22 sets, daily range): BP systolic 105–213; BP diastolic 57–133; TEMP 98.2–99; O2SAT 95–98
[2024-03-25] MEDS: HYDROmorphone 4MG TABLET PO PRN (00:44)
[2024-03-25] MEDS: LEVEMIR (INSULIN DETEMIR) 1 UNITS/0.01ML SC ONE (00:44)
[2024-03-25] MEDS: ONDANSETRON 4MG 2ML VIAL IV SCH (01:17)
[2024-03-25] MEDS: PANTOPRAZOLE 40MG VIAL IV ONE (04:20)
[2024-03-25] MEDS: ONDANSETRON 4MG 2ML VIAL IV ONE (04:50)
[2024-03-25 07:12] LABS: BLOOD UREA NITROGEN 16 MG/DL (9-23); CALCIUM LEVEL 8.3 MG/DL (8.5-10.1); CARBON DIOXIDE LEVEL 27 MMOL/L (20-31); CHLORIDE LEVEL 98 MMOL/L (98-107); CREATININE FOR GFR 0.53 MG/DL (0.55-1.30); GLOMERULAR FILTRATION RATE > 60.0 (>51); GLUCOSE, FASTING 322 MG/DL (60-100); POTASSIUM SERUM 3.7 MMOL/L (3.5-5.1); SODIUM LEVEL 133 MMOL/L (136-145)
[2024-03-25] MEDS: INSULIN LISPRO (NovoLOG) PER UNIT SC SCH (07:30)
[2024-03-25] MEDS: LEVEMIR (INSULIN DETEMIR) 1 UNITS/0.01ML SC SCH (08:26)
[2024-03-25] MEDS: ONDANSETRON 4MG 2ML VIAL IV PRN (08:26)
[2024-03-25] MEDS: SCOPOLAMINE 1MG TRANSDERMAL PATCH TOP ONE (08:27)
[2024-03-25] MEDS: amLODIPine 5 MG TAB PO SCH (08:28)
[2024-03-25 08:38] LABS: HEMATOCRIT 43.1 % (36.0-47.0); MEAN CORPUSCULAR HEMOGLOBIN 30.3 pg (27.0-33.0); MEAN CORPUSCULAR HGB CONC 33.6 g/dl (32.0-36.5); MEAN CORPUSCULAR VOLUME 90.2 fl (80.0-96.0); PLATELET COUNT, AUTOMATED 200 10^3/uL (150-450); RED BLOOD COUNT 4.78 10^6/uL (4.00-5.40); WHITE BLOOD COUNT 15.9 10^3/uL (4.0-10.0)
[2024-03-25 08:43] LABS: HEMOGLOBIN 14.5 g/dl (12.0-15.5)
[2024-03-25] MEDS: BETAMETHASONE DIP 0.05% OINT 15GM TOP SCH (09:00)
[2024-03-25] MEDS ORDERED: LEVEMIR (INSULIN DETEMIR) 1 UNITS/0.01ML SC SCH (09:00)
[2024-03-25] MEDS: NS (Normal Saline) 0.9% 1,000 ML IV SCH (12:01)
[2024-03-25] MEDS: METOCLOPRAMIDE INJ 10MG/2ML VIAL IV PRN (12:16)
[2024-03-25] MEDS: LABETALOL 100MG/20ML VIAL IV STA (17:05)
[2024-03-25 21:44] LABS: HEMATOCRIT 43.4 % (36.0-47.0); HEMOGLOBIN 14.6 g/dl (12.0-15.5); MEAN CORPUSCULAR HEMOGLOBIN 30.6 pg (27.0-33.0); MEAN CORPUSCULAR HGB CONC 33.6 g/dl (32.0-36.5); PLATELET COUNT, AUTOMATED 194 10^3/uL (150-450); RED BLOOD COUNT 4.77 10^6/uL (4.00-5.40); WHITE BLOOD COUNT 14.8 10^3/uL (4.0-10.0)
[2024-03-25 22:32] LABS: BLOOD UREA NITROGEN 12 MG/DL (9-23); CALCIUM LEVEL 9.1 MG/DL (8.5-10.1); CARBON DIOXIDE LEVEL 29 MMOL/L (20-31); CHLORIDE LEVEL 102 MMOL/L (98-107); CREATININE FOR GFR 0.48 MG/DL (0.55-1.30); GLOMERULAR FILTRATION RATE > 60.0 (>51); GLUCOSE, FASTING 173 MG/DL (60-100); POTASSIUM SERUM 3.6 MMOL/L (3.5-5.1); SODIUM LEVEL 138 MMOL/L (136-145)
[2024-03-26] VITALS (9 sets, daily range): BP systolic 114–235; BP diastolic 68–143; TEMP 97.3–98.7; O2SAT 94–98
[2024-03-26 05:28] LABS: BASO # 0.1 10^3/uL (0.0-0.2); BASO % 0.5 % (0.0-1.0); EOS # 0.1 10^3/uL (0.0-0.5); EOS % 0.4 % (0.0-3.0); HEMOGLOBIN 13.7 g/dl (12.0-15.5); LYMPH # 3.8 10^3/uL (1.5-5.0); LYMPH % 32.7 % (24.0-44.0); MEAN CORPUSCULAR HEMOGLOBIN 30.5 pg (27.0-33.0); MEAN CORPUSCULAR HGB CONC 33.4 g/dl (32.0-36.5); MEAN CORPUSCULAR VOLUME 91.3 fl (80.0-96.0); MONO % 8.9 % (2.0-8.0); NEUTROPHILS # 6.6 10^3/uL (1.5-8.5); NEUTROPHILS % 57.2 % (36.0-66.0); PLATELET COUNT, AUTOMATED 181 10^3/uL (150-450); RED BLOOD COUNT 4.49 10^6/uL (4.00-5.40); WHITE BLOOD COUNT 11.6 10^3/uL (4.0-10.0)
[2024-03-26 06:05] LABS: ALBUMIN 3.1 G/DL (3.2-5.2); ALKALINE PHOSPHATASE 114 U/L (35-104); ALT/SGPT 26 U/L (7.0-40); AST/SGOT 18 U/L (<34); BILIRUBIN,TOTAL 0.8 MG/DL (0.3-1.2); BLOOD UREA NITROGEN 11 MG/DL (9-23); CALCIUM LEVEL 8.9 MG/DL (8.5-10.1); CARBON DIOXIDE LEVEL 27 MMOL/L (20-31); CHLORIDE LEVEL 102 MMOL/L (98-107); CREATININE FOR GFR 0.45 MG/DL (0.55-1.30); GLOMERULAR FILTRATION RATE > 60.0 (>51); GLUCOSE, FASTING 146 MG/DL (60-100); MAGNESIUM LEVEL 1.5 MG/DL (1.8-2.4); POTASSIUM SERUM 3.3 MMOL/L (3.5-5.1); SODIUM LEVEL 138 MMOL/L (136-145); TOTAL PROTEIN 6.5 G/DL (5.7-8.2)
[2024-03-26] MEDS: PANTOPRAZOLE 40MG VIAL IV SCH (08:54)
[2024-03-26] MEDS: MAG SULF 1GM/100ML (MAG RUN) 1 GM in IV 1 EA IV SCH (08:54)
[2024-03-26] MEDS ORDERED: LABETALOL 100MG/20ML VIAL IV PRN (10:00)
[2024-03-26] MEDS ORDERED: MORPHINE 4 MG/ML 1ML VIAL IV PRN (10:00)
[2024-03-26] MEDS: POTASSIUM CHLORIDE 10MEQ SR TABLET PO ONE (11:43)
[2024-03-26] MEDS: LABETALOL 100MG TAB PO SCH (13:16)
[2024-03-26] MEDS: HYDROmorphone 4MG TABLET PO PRN (14:15)
[2024-03-27] VITALS: BP 99/57; TEMP 98; O2SAT 96
[2024-03-27 04:00] VITALS: BP 105/57; TEMP 98.1; O2SAT 97
[2024-03-27 04:49] LABS: BASO % 0.2 % (0.0-1.0); EOS % 0.2 % (0.0-3.0); HEMOGLOBIN 12.7 g/dl (12.0-15.5); LYMPH # 3.7 10^3/uL (1.5-5.0); LYMPH % 29.5 % (24.0-44.0); MEAN CORPUSCULAR HEMOGLOBIN 30.6 pg (27.0-33.0); MEAN CORPUSCULAR HGB CONC 33.4 g/dl (32.0-36.5); MEAN CORPUSCULAR VOLUME 91.6 fl (80.0-96.0); MONO # 0.9 10^3/uL (0.0-0.8); MONO % 7.2 % (2.0-8.0); NEUTROPHILS # 7.7 10^3/uL (1.5-8.5); NEUTROPHILS % 62.5 % (36.0-66.0); PLATELET COUNT, AUTOMATED 171 10^3/uL (150-450); RED BLOOD COUNT 4.15 10^6/uL (4.00-5.40); WHITE BLOOD COUNT 12.4 10^3/uL (4.0-10.0)
[2024-03-27 05:20] LABS: ALBUMIN 3.1 G/DL (3.2-5.2); ALKALINE PHOSPHATASE 98 U/L (35-104); ALT/SGPT 20 U/L (7.0-40); AST/SGOT 15 U/L (<34); BILIRUBIN,TOTAL 0.7 MG/DL (0.3-1.2); BLOOD UREA NITROGEN 16 MG/DL (9-23); CALCIUM LEVEL 8.9 MG/DL (8.5-10.1); CARBON DIOXIDE LEVEL 25 MMOL/L (20-31); CHLORIDE LEVEL 101 MMOL/L (98-107); CREATININE FOR GFR 0.48 MG/DL (0.55-1.30); GLOMERULAR FILTRATION RATE > 60.0 (>51); GLUCOSE, FASTING 200 MG/DL (60-100); MAGNESIUM LEVEL 1.8 MG/DL (1.8-2.4); POTASSIUM SERUM 3.9 MMOL/L (3.5-5.1); SODIUM LEVEL 135 MMOL/L (136-145); TOTAL PROTEIN 6.4 G/DL (5.7-8.2)
[2024-03-27 08:00] VITALS: BP 137/88; TEMP 97.9; O2SAT 97
[2024-03-27 09:00] VITALS: BP 107/56
[2024-03-27] MEDS: PANTOPRAZOLE 40MG TAB (PROTONIX) PO SCH (09:43)
[2024-03-27 09:44] VITALS: BP 107/56
[2024-03-27] MEDS: dexAMETHasone 4 MG TAB PO SCH (09:44)
[2024-03-27] MEDS ORDERED: METO10TA2 PO (10:37)
[2024-03-27] MEDS ORDERED: PANT40TA29 PO (10:37)
[2024-03-27] MEDS ORDERED: DEXA4TA PO (10:37)
== END 2024-03-27 12:15 | disposition home or self-care (01) | DRG 420 ==
LOC: M ED 12:21 → M ED INP 14:04 → M ICU 14:41
PROVIDERS: ADMIT Internal Medicine Pulmonary Disease; ATTEND Student in an Organized Health Care Education/Training Program
DX: E10.10 Type 1 diabetes mellitus with ketoacidosis without coma (principal); F11.20 Opioid dependence, uncomplicated; E10.42 Type 1 diabetes mellitus with diabetic polyneuropathy; K86.1 Other chronic pancreatitis; D13.6 Benign neoplasm of pancreas; E87.1 Hypo-osmolality and hyponatremia; F17.200 Nicotine dependence, unspecified, uncomplicated; G25.0 Essential tremor; R03.0 Elevated blood-pressure reading, without diagnosis of hypertension; L40.9 Psoriasis, unspecified; R11.14 Bilious vomiting; Z79.4 Long term (current) use of insulin; Z79.899 Other long term (current) drug therapy; G89.29 Other chronic pain; Z88.0 Allergy status to penicillin; Z88.5 Allergy status to narcotic agent; Z88.8 Allergy status to other drugs, medicaments and biological substances

== ENCOUNTER → 2024-04-01 | Outpatient (CLI) | payer BC ==
[~2024-04-01] MED LIST changes: +BETA5OI TOP; +DEXA4TA PO; +DULO1CAP6 PO; +IBUP200C25 PO; +METO10TA2 PO
== END ==
LOC: M PAIN 17:00
PROVIDERS: ATTEND Nurse Practitioner Family
DX: K86.1 Other chronic pancreatitis (principal); Z79.891 Long term (current) use of opiate analgesic; E11.9 Type 2 diabetes mellitus without complications; G89.29 Other chronic pain; L40.0 Psoriasis vulgaris; F17.210 Nicotine dependence, cigarettes, uncomplicated; Z79.4 Long term (current) use of insulin; Z79.899 Other long term (current) drug therapy; Z88.0 Allergy status to penicillin; Z88.5 Allergy status to narcotic agent; Z88.8 Allergy status to other drugs, medicaments and biological substances

== ENCOUNTER 2024-05-09 16:20 | Inpatient (IN) | payer BC ==
[~2024-05-09] VITALS: Ht 157.5 cm; Wt 52.4 kg
[2024-05-09 17:05] LABS: VENOUS BASE EXCESS 3.7 (-2.0-2.0); VENOUS HCO3 25.3 MMOL/L (23.0-27.0); VENOUS O2 SATURATION 81.9 % (60.0-80.0); VENOUS PARTIAL PRESSURE CO2 30.6 mmHg (38.0-50.0); VENOUS PARTIAL PRESSURE O2 38.7 mmHg (30.0-50.0); VENOUS PH 7.536 UNITS (7.330-7.430); VENOUS STANDARD HCO3 27.3 MMOL/L; VENOUS TOTAL CO2 26.3 MMOL/L (24.0-28.0)
[2024-05-09 17:10] LABS: BASO # 0.1 10^3/uL (0.0-0.2); BASO % 0.6 % (0.0-1.0); EOS % 0.1 % (0.0-3.0); HEMATOCRIT 47.6 % (36.0-47.0); HEMOGLOBIN 16.1 g/dl (12.0-15.5); LYMPH # 1.8 10^3/uL (1.5-5.0); LYMPH % 16.2 % (24.0-44.0); MEAN CORPUSCULAR HEMOGLOBIN 30.4 pg (27.0-33.0); MEAN CORPUSCULAR HGB CONC 33.8 g/dl (32.0-36.5); MONO # 0.4 10^3/uL (0.0-0.8); NEUTROPHILS # 8.6 10^3/uL (1.5-8.5); NEUTROPHILS % 78.7 % (36.0-66.0); PLATELET COUNT, AUTOMATED 305 10^3/uL (150-450); RED BLOOD COUNT 5.29 10^6/uL (4.00-5.40); WHITE BLOOD COUNT 10.9 10^3/uL (4.0-10.0)
[2024-05-09] MEDS: NS (Normal Saline) 0.9% 1,000 ML IV ONE ×2 (17:19→19:15)
[2024-05-09] MEDS: ONDANSETRON 4MG 2ML VIAL IV ONE (17:27)
[2024-05-09 17:31] LABS: HEMOGLOBIN A1c 6.6 % (4.0-6.0)
[2024-05-09 17:37] LABS: LIPASE 33 U/L (12-53)
[2024-05-09 17:39] LABS: ACETONE/KETONE 1.02 MMOL/L (0.02-0.27)
[2024-05-09 17:49] LABS: ALKALINE PHOSPHATASE 225 U/L (35-104); ALT/SGPT 64 U/L (7.0-40); AST/SGOT 41 U/L (<34); BILIRUBIN,DIRECT 0.2 MG/DL (<0.4); BILIRUBIN,TOTAL 0.6 MG/DL (0.3-1.2); BLOOD UREA NITROGEN 9 MG/DL (9-23); CALCIUM LEVEL 10.1 MG/DL (8.5-10.1); CARBON DIOXIDE LEVEL 25 MMOL/L (20-31); CHLORIDE LEVEL 99 MMOL/L (98-107); CREATININE FOR GFR 0.43 MG/DL (0.55-1.30); GLOMERULAR FILTRATION RATE > 60.0 (>51); GLUCOSE, FASTING 271 MG/DL (60-100); POTASSIUM SERUM 4.1 MMOL/L (3.5-5.1); SODIUM LEVEL 135 MMOL/L (136-145); TOTAL PROTEIN 8.2 G/DL (5.7-8.2)
[2024-05-09 18:07] LABS: OSMOLALITY SERUM 300 MOSM/KG (275-295)
[2024-05-09] MEDS: fentaNYL 100 MCG/2 ML INJECTION IV ONE (18:20)
[2024-05-09 19:26] LABS: KETONE, URINE AUTO RFX 1+ mg/dL (NEGATIVE); LEUKOCYTE ESTERASE UR AUTO RFX NEGATIVE (NEGATIVE); MUCUS, URINE RFX SMALL (NEGATIVE); NITRITE, URINE AUTO RFX NEGATIVE (NEGATIVE); RBC, URINE AUTO RFX 6 /HPF (0-3); SQUAM EPITHELIAL CELL UR AURFX 0 /HPF (0-6); WBC, URINE AUTO RFX 0 /HPF (0-3)
[2024-05-09] MEDS: HALOPERIDOL LACTATE 5MG/ML VIAL IV ONE (20:30)
[2024-05-09] MEDS: diphenhydrAMINE 50MG/ML VIAL IV ONE (20:31)
[2024-05-09] MEDS: LABETALOL 100MG TAB PO ONE ×2 (21:22→23:28)
[2024-05-09] MEDS: LABETALOL 100MG/20ML VIAL IV STA ×2 (22:38→23:27)
[2024-05-09 23:27] VITALS: BP 176/111
[2024-05-10] VITALS (14 sets, daily range): BP systolic 104–164; BP diastolic 60–86; TEMP 97–98.6; O2SAT 93–100
[2024-05-10] MEDS ORDERED: HOME MED LIST COMPLETE! XX SCH (00:20)
[2024-05-10] MEDS ORDERED: DULO1CAP6 PO (00:48)
[2024-05-10] MEDS ORDERED: PANT40TA29 PO (00:48)
[2024-05-10] MEDS ORDERED: cloNIDine 0.1MG TABLET PO ONE (01:05)
[2024-05-10] MEDS ORDERED: DEXTROSE 50% 50ML SYRINGE IV PRN (01:20)
[2024-05-10] MEDS ORDERED: ACETAMINOPHEN 325 MG TAB PO PRN (01:20)
[2024-05-10] MEDS ORDERED: MAALOX 30 ML SUSP *UDC PO PRN (01:20)
[2024-05-10] MEDS ORDERED: MOM 30ML SUSPENSION UDC PO PRN (01:20)
[2024-05-10] MEDS ORDERED: GLUCAGON INJ 1MG VIAL SC PRN (01:20)
[2024-05-10] MEDS ORDERED: NALOXONE INJ 0.4MG/1ML VIAL IV PRN (01:20)
[2024-05-10] MEDS ORDERED: GLUCOSE 4 GM CHEW PO PRN (01:20)
[2024-05-10] MEDS ORDERED: KETOROLAC 30 MG/ML 1ML VIAL IV PRN (01:55)
[2024-05-10] MEDS: ONDANSETRON 4MG ORAL DISINTEGRATING TAB PO PRN (03:46)
[2024-05-10] MEDS: KETOROLAC 30 MG/ML 1ML VIAL IV PRN (03:47)
[2024-05-10] MEDS ORDERED: HYDROMORPHONE HCL 0.5 MG/ 0.5 ML SYRINGE IV PRN (05:25)
[2024-05-10 05:48] LABS: HEMATOCRIT 44.3 % (36.0-47.0); HEMOGLOBIN 15.1 g/dl (12.0-15.5); MEAN CORPUSCULAR HEMOGLOBIN 30.6 pg (27.0-33.0); MEAN CORPUSCULAR HGB CONC 34.1 g/dl (32.0-36.5); MEAN CORPUSCULAR VOLUME 89.7 fl (80.0-96.0); PLATELET COUNT, AUTOMATED 254 10^3/uL (150-450); RED BLOOD COUNT 4.94 10^6/uL (4.00-5.40); WHITE BLOOD COUNT 14.2 10^3/uL (4.0-10.0)
[2024-05-10] MEDS: HYDROMORPHONE HCL 0.5 MG/ 0.5 ML SYRINGE IV PRN (05:58)
[2024-05-10] MEDS: METOCLOPRAMIDE INJ 10MG/2ML VIAL IV ONE (05:58)
[2024-05-10] MEDS: INSULIN LISPRO (NovoLOG) PER UNIT SC SCH ×2 (05:59→21:00)
[2024-05-10 06:08] LABS: ACETONE/KETONE 2.05 MMOL/L (0.02-0.27)
[2024-05-10 06:29] LABS: ALBUMIN 3.6 G/DL (3.2-5.2); ALKALINE PHOSPHATASE 189 U/L (35-104); ALT/SGPT 43 U/L (7.0-40); AST/SGOT 18 U/L (<34); BILIRUBIN,TOTAL 0.6 MG/DL (0.3-1.2); BLOOD UREA NITROGEN 10 MG/DL (9-23); CALCIUM LEVEL 8.8 MG/DL (8.5-10.1); CARBON DIOXIDE LEVEL 23 MMOL/L (20-31); CHLORIDE LEVEL 96 MMOL/L (98-107); CREATININE FOR GFR 0.54 MG/DL (0.55-1.30); GLOMERULAR FILTRATION RATE > 60.0 (>51); GLUCOSE, FASTING 359 MG/DL (60-100); MAGNESIUM LEVEL 1.1 MG/DL (1.8-2.4); POTASSIUM SERUM 3.2 MMOL/L (3.5-5.1); SODIUM LEVEL 133 MMOL/L (136-145); TOTAL PROTEIN 7.5 G/DL (5.7-8.2)
[2024-05-10] MEDS: DOCUSATE SODIUM 100MG CAPSULE PO SCH (09:00)
[2024-05-10] MEDS: POTASSIUM CHLORIDE 10MEQ SR TABLET PO ONE (09:03)
[2024-05-10] MEDS: DULoxetine 30MG CAPSULE (CYMBALTA) PO SCH (09:03)
[2024-05-10] MEDS: PANTOPRAZOLE 40MG TAB (PROTONIX) PO SCH ×2 (09:03→21:01)
[2024-05-10] MEDS: KETOROLAC 30 MG/ML 1ML VIAL IV SCH (09:04)
[2024-05-10] MEDS: MAG SULF 1GM/100ML (MAG RUN) 1 GM in IV 1 EA IV SCH (09:05)
[2024-05-10] MEDS: LanTUS (INSULIN GLARGINE INJ) 1 UNITS/0.01 ML SC SCH (09:05)
[2024-05-10] MEDS: HYDROmorphone 4MG TABLET PO PRN ×2 (10:33→23:36)
[2024-05-10] MEDS: NS 0.45% 1,000 ML IV SCH (12:03)
[2024-05-10] MEDS: METOCLOPRAMIDE INJ 10MG/2ML VIAL IV SCH (12:40)
[2024-05-10] MEDS: SCOPOLAMINE 1MG TRANSDERMAL PATCH TOP SCH (12:40)
[2024-05-10] MEDS ORDERED: HYDROmorphone 4MG TABLET PO PRN (18:00)
[2024-05-11] VITALS (7 sets, daily range): BP systolic 126; BP diastolic 67–70; TEMP 97.8–97.9; O2SAT 96–98
[2024-05-11 07:41] LABS: HEMATOCRIT 37.7 % (36.0-47.0); MEAN CORPUSCULAR HEMOGLOBIN 30.4 pg (27.0-33.0); MEAN CORPUSCULAR VOLUME 89.5 fl (80.0-96.0); PLATELET COUNT, AUTOMATED 222 10^3/uL (150-450); RED BLOOD COUNT 4.21 10^6/uL (4.00-5.40); WHITE BLOOD COUNT 9.5 10^3/uL (4.0-10.0)
[2024-05-11 07:50] LABS: HEMOGLOBIN 12.8 g/dl (12.0-15.5)
[2024-05-11 08:13] LABS: ALBUMIN 3.1 G/DL (3.2-5.2); ALKALINE PHOSPHATASE 131 U/L (35-104); ALT/SGPT 27 U/L (7.0-40); AST/SGOT 19 U/L (<34); BILIRUBIN,TOTAL 0.6 MG/DL (0.3-1.2); BLOOD UREA NITROGEN 12 MG/DL (9-23); CALCIUM LEVEL 8.6 MG/DL (8.5-10.1); CARBON DIOXIDE LEVEL 25 MMOL/L (20-31); CHLORIDE LEVEL 102 MMOL/L (98-107); CREATININE FOR GFR 0.61 MG/DL (0.55-1.30); GLOMERULAR FILTRATION RATE > 60.0 (>51); GLUCOSE, FASTING 127 MG/DL (60-100); POTASSIUM SERUM 3.4 MMOL/L (3.5-5.1); SODIUM LEVEL 135 MMOL/L (136-145); TOTAL PROTEIN 6.1 G/DL (5.7-8.2)
[2024-05-11] MEDS: ONDANSETRON 4MG 2ML VIAL IV PRN (08:23)
[2024-05-11] MEDS ORDERED: REGL5TAB2 PO (11:19)
[2024-05-11] MEDS: POTASSIUM CHLORIDE 10MEQ SR TABLET PO ONE (11:29)
== END 2024-05-11 13:59 | disposition home or self-care (01) | DRG 199 ==
LOC: EDBD 16:20 → M ED 16:20 → M ED INP 23:53 → M PCU 05-10 03:37
PROVIDERS: ADMIT Family Medicine; ATTEND Family Medicine
DX: I16.0 Hypertensive urgency (principal); K31.84 Gastroparesis; E10.65 Type 1 diabetes mellitus with hyperglycemia; E10.43 Type 1 diabetes mellitus with diabetic autonomic (poly)neuropathy; G89.29 Other chronic pain; K58.9 Irritable bowel syndrome, unspecified; L40.9 Psoriasis, unspecified; F32.A Depression, unspecified; F17.210 Nicotine dependence, cigarettes, uncomplicated; F11.23 Opioid dependence with withdrawal; Z79.4 Long term (current) use of insulin; Z79.899 Other long term (current) drug therapy; Z88.0 Allergy status to penicillin; Z88.5 Allergy status to narcotic agent; Z88.8 Allergy status to other drugs, medicaments and biological substances; G25.0 Essential tremor

== ENCOUNTER 2024-08-13 18:03 | Inpatient (IN) | payer BC ==
[~2024-08-13] VITALS: Ht 157.5 cm; Wt 56.8 kg
[~2024-08-13 18:03] MED LIST changes: +MORP-138 PO; -MORP15TASA PO; +REGL5TAB2 PO
[2024-08-13] MEDS: NS (Normal Saline) 0.9% 1,000 ML IV ONE (18:40)
[2024-08-13 18:58] LABS: BASO # 0.1 10^3/uL (0.0-0.2); BASO % 0.4 % (0.0-1.0); EOS # 0.0 10^3/uL (0.0-0.5); EOS % 0.0 % (0.0-3.0); LYMPH # 1.4 10^3/uL (1.5-5.0); LYMPH % 7.7 % (24.0-44.0); MONO # 1.5 10^3/uL (0.0-0.8); MONO % 8.4 % (2.0-8.0); NEUTROPHILS # 14.9 10^3/uL (1.5-8.5); NEUTROPHILS % 82.9 % (36.0-66.0); PLATELET COUNT, AUTOMATED 255 10^3/uL (150-450)
[2024-08-13] MEDS: ACETAMINOPHEN *IV* 1,000 MG in IV 1 EA IV ONE (19:16)
[2024-08-13 19:26] LABS: ALT/SGPT 14 U/L (7.0-40); AST/SGOT 31 U/L (<34); CALCIUM LEVEL 8.4 MG/DL (8.5-10.1); CARBON DIOXIDE LEVEL 23 MMOL/L (20-31); CHLORIDE LEVEL 96 MMOL/L (98-107); CREATININE FOR GFR 0.46 MG/DL (0.55-1.30); GLOMERULAR FILTRATION RATE > 90.0 (>51); POTASSIUM SERUM 4.1 MMOL/L (3.5-5.1); SODIUM LEVEL 134 MMOL/L (136-145)
[2024-08-13] MEDS ORDERED: ISOVUE-370 76% 100 ML VIAL As Ordered ONE (19:43)
[2024-08-13 20:13] LABS: KETONE, URINE AUTO RFX 2+ mg/dL (NEGATIVE); LEUKOCYTE ESTERASE UR AUTO RFX NEGATIVE (NEGATIVE); MUCUS, URINE RFX SMALL (NEGATIVE); NITRITE, URINE AUTO RFX NEGATIVE (NEGATIVE); RBC, URINE AUTO RFX 6 /HPF (0-3); SQUAM EPITHELIAL CELL UR AURFX 1 /HPF (0-6); WBC, URINE AUTO RFX 0 /HPF (0-3); YEAST LIKE CELL URINE AUTO RFX SMALL
[2024-08-13] MEDS: INSULIN LISPRO (NovoLOG) PER UNIT SC SCH (21:00)
[2024-08-13] MEDS: ONDANSETRON 4MG 2ML VIAL IV ONE (22:10)
[2024-08-13] MEDS: HYDROMORPHONE HCL 0.5 MG/0.5 ML SYRINGE IV PRN (22:45)
[2024-08-13] MEDS ORDERED: METO5TAB2 PO (23:23)
[2024-08-13] MEDS ORDERED: TRAN1DIS4 TOP (23:23)
[2024-08-13] MEDS ORDERED: HOME MED LIST COMPLETE! XX SCH (23:25)
[2024-08-13] MEDS: NS (Normal Saline) 0.9% 1,000 ML IV SCH (23:45)
[2024-08-13] MEDS ORDERED: GLUCOSE 4 GM CHEW PO PRN (23:45)
[2024-08-13] MEDS ORDERED: GLUCAGON INJ 1 MG VIAL SC PRN (23:45)
[2024-08-13] MEDS ORDERED: DEXTROSE 50% 50 ML SYRINGE IV PRN (23:45)
[2024-08-13] MEDS ORDERED: PROMETHAZINE 25MG/ML 1ML VIAL IV PRN (23:50)
[2024-08-13] MEDS ORDERED: SCOPOLAMINE 1MG TRANSDERMAL PATCH TOP PRN (23:50)
[2024-08-14] MEDS: ONDANSETRON 4MG 2ML VIAL IV PRN (02:07)
[2024-08-14] MEDS: HYDROMORPHONE HCL 0.5 MG/0.5 ML SYRINGE IV PRN ×2 (02:07→14:52)
[2024-08-14 02:11] VITALS: BP 161/81; TEMP 98.8
[2024-08-14 04:00] VITALS: BP 164/100; TEMP 98.4; O2SAT 92
[2024-08-14] MEDS: METOCLOPRAMIDE 5 MG TAB PO PRN (05:18)
[2024-08-14 06:46] LABS: PLATELET COUNT, AUTOMATED 204 10^3/uL (150-450)
[2024-08-14 07:00] LABS: ALT/SGPT 9 U/L (7.0-40); AST/SGOT 12 U/L (<34); CALCIUM LEVEL 7.7 MG/DL (8.5-10.1); CARBON DIOXIDE LEVEL 24 MMOL/L (20-31); CHLORIDE LEVEL 98 MMOL/L (98-107); CREATININE FOR GFR 0.45 MG/DL (0.55-1.30); GLOMERULAR FILTRATION RATE > 90.0 (>51); POTASSIUM SERUM 3.0 MMOL/L (3.5-5.1); SODIUM LEVEL 135 MMOL/L (136-145)
[2024-08-14 07:56] LABS: MAGNESIUM LEVEL 1.1 MG/DL (1.8-2.4)
[2024-08-14] MEDS: KCL 40MEQ in NS 1000ML 1,000 ML IV SCH (07:57)
[2024-08-14] MEDS: INSULIN LISPRO (NovoLOG) PER UNIT SC SCH (07:57)
[2024-08-14] MEDS: ENOXAPARIN 40 MG/0.4 ML SYRINGE (J1650 PER 10MG) SC SCH (08:08)
[2024-08-14] MEDS: LanTUS (INSULIN GLARGINE INJ) 1 UNITS/0.01 ML SC ONE ×2 (10:30→13:21)
[2024-08-14 10:47] LABS: C REACTIVE PROTEIN QUANTITATIV 12.90 MG/DL (<1.0)
[2024-08-14] MEDS: MAG SULF 1GM/100ML (MAG RUN) 1 GM in IV 1 EA IV SCH (11:50)
[2024-08-14] MEDS ORDERED: VANCOMYCIN HCL 1,250 MG, VIAL MATE ADAPTER 1 EACH in NS 250 ML IV ONE (12:00)
[2024-08-14 12:01] VITALS: BP 137/84; TEMP 97.3; O2SAT 93
[2024-08-14] MEDS: ceFAZolin SODIUM 2 GM in DEXTROSE 5% (D5W) ADV/MINI-BAG 50 ML IV SCH (14:39)
[2024-08-14 17:59] LABS: CALCIUM LEVEL 7.9 MG/DL (8.5-10.1); CARBON DIOXIDE LEVEL 27 MMOL/L (20-31); CHLORIDE LEVEL 102 MMOL/L (98-107); CREATININE FOR GFR 0.46 MG/DL (0.55-1.30); GLOMERULAR FILTRATION RATE > 90.0 (>51); MAGNESIUM LEVEL 2.5 MG/DL (1.8-2.4); POTASSIUM SERUM 3.5 MMOL/L (3.5-5.1); SODIUM LEVEL 138 MMOL/L (136-145)
[2024-08-14] MEDS ORDERED: VANCOMYCIN HCL 750 MG, VIAL MATE ADAPTER 1 EACH in NS 250 ML IV SCH (18:00)
[2024-08-14 19:55] VITALS: BP 137/83; TEMP 97.3; O2SAT 98
[2024-08-14 21:51] VITALS: BP 138/82
[2024-08-15 03:47] VITALS: BP 128/77; TEMP 97.5; O2SAT 96
[2024-08-15] MEDS ORDERED: LanTUS (INSULIN GLARGINE INJ) 1 UNITS/0.01 ML SC SCH (09:00)
== END 2024-08-15 09:51 | disposition left against medical advice (07) | DRG 720 ==
LOC: EDBD 18:03 → M ED 18:03 → M ED INP 18:04 → M MSPAV 08-14 01:50 → OBSVTOIN 08-14 10:28
PROVIDERS: ADMIT Family Medicine; ATTEND Internal Medicine
PROC: B246ZZZ Ultrasonography of Right and Left Heart (ICD-10-PCS; principal; 2024-08-14)
DX: A41.01 Sepsis due to Methicillin susceptible Staphylococcus aureus (principal); K85.90 Acute pancreatitis without necrosis or infection, unspecified; E10.9 Type 1 diabetes mellitus without complications; F32.A Depression, unspecified; K58.9 Irritable bowel syndrome, unspecified; F17.210 Nicotine dependence, cigarettes, uncomplicated; Z79.899 Other long term (current) drug therapy; Z88.0 Allergy status to penicillin; Z88.5 Allergy status to narcotic agent; Z88.8 Allergy status to other drugs, medicaments and biological substances